=== PATIENT | male | born 1940 | race Caucasian/White ===

== ENCOUNTER → 2018-01-07 08:15 | Outpatient (CLI) | payer MEDICARE, SELFPAY ==
[2018-01-07 09:22] LABS: Absolute Lymphocyte Count 1.25 X10^3/ul (0.83-4.51); Absolute Neutrophil Count 3.4 X10^3/uL (2.0-7.7); Basophil# 0.02 X10^3/uL; Basophil% 0.4 % (0-1); Eosinophil# 0.13 X10^3/uL; Eosinophils% 2.5 % (0-5); Hematocrit 41.2 % (40-54); Hemoglobin 13.4 g/dl (13.0-16.5); Lymphocyte # 1.25 X10^3/ul (4.0); Lymphocyte % 23.9 % (19-41); Mean Corp Hgb Conc 32.5 g/gl (32-36); Mean Corpuscular Hgb 30.3 pg (27.0-32.0); Mean Corpuscular Volume 93.2 fL (80-94); Mean Platelet Vol. 10.7 fl (6.2-12.0); Monocyte# 0.45 X10^3/uL; Monocyte% 8.6 % (0-10); Neutrophil # 3.36 X10^3/uL (2.7-7.7); Neutrophil % 64.4 % (47-70); Platelet Count 174 K/mm3 (150-450); RBC Distribution Width CV 13.2 % (11.6-14.6); RBC Distribution Width SD 44.9 fl (35.1-43.9); Red Blood Count 4.42 M/mm3 (4.6-6.2); White Blood Count 5.2 K/mm3 (4.4-11.0)
[2018-01-07 09:35] LABS: POSITIVE COUNT NO; POSITIVE DIFFERENTIAL NO; POSITIVE MORPHOLOGY NO
[2018-01-07 09:51] LABS: Anion Gap 6 (5-15); BUN 16 mg/dL (7-18); BUN/Creat Ratio 16.2 RATIO (10-20); Calcium,Total 8.8 mg/dL (8.5-10.1); Chloride 104 mmol/L (98-107); Creatinine, Serum 0.99 mg/dL (0.70-1.30); EST Glomerular Filtration Rate 78 mL/min (>60); Est Glom Filt Rate - Afr Amer 95 mL/min (>60); Glucose 94 mg/dL (74-106); Potassium 3.8 mmol/L (3.5-5.1); Sodium Level 140 mmol/L (136-145); Thyroid Stim Hormone (TSH) 3.14 uIU/mL (0.358-3.74)
[2018-01-07 10:33] LABS: Vitamin D,25 Hydroxy 13.7 ng/mL (19.95-100.01)
== END ==
PROVIDERS: Family Provider Family Medicine; PCP Family Medicine; Visit Provider Family Medicine
DX: R53.83 Other fatigue (principal); E34.9 Endocrine disorder, unspecified
CPT/HCPCS: 36415; 80048; 82306; 84403; 84443; 85025

== ENCOUNTER 2018-02-01 15:44 | Emergency (ER) | payer MEDICARE, SELFPAY ==
[2018-02-01 15:44] VITALS: BP 146/86; PULSE 99; RESP 16; TEMP 36.7; O2SAT 99; BMI 28.6
--- NOTE | 2018-02-01 16:18 | EKG12_ITS ---
Test Reason : CP Blood Pressure : / mmHG Vent. Rate : 091 BPM Atrial Rate : 091 BPM P-R Int : 194 ms QRS Dur : 092 ms QT Int : 396 ms P-R-T Axes : 040 009 000 degrees QTc Int : 487 ms Normal sinus rhythm Normal ECG Confirmed by DAVIDE MULLINS, CHANELLE ([id number]), newspaper managing editor HENRIK DIAZ ([id number]) on 02/03/2018 3:23:45 PM Referred By: BRIDGET Confirmed By:CHANELLE AUGUSTINE MD
[2018-02-01 16:35] VITALS: O2SAT 99
[2018-02-01 16:39] LABS: Absolute Lymphocyte Count 1.21 X10^3/ul (0.83-4.51); Absolute Neutrophil Count 6.4 X10^3/uL (2.0-7.7); Basophil# 0.02 X10^3/uL; Basophil% 0.2 % (0-1); Eosinophils% 1.2 % (0-5); Hematocrit 41.2 % (40-54); Hemoglobin 13.9 g/dl (13.0-16.5); Lymphocyte # 1.21 X10^3/ul (4.0); Lymphocyte % 14.5 % (19-41); Mean Corp Hgb Conc 33.7 g/gl (32-36); Mean Corpuscular Hgb 30.9 pg (27.0-32.0); Mean Corpuscular Volume 91.6 fL (80-94); Mean Platelet Vol. 10.8 fl (6.2-12.0); Monocyte# 0.53 X10^3/uL; Monocyte% 6.4 % (0-10); Neutrophil # 6.44 X10^3/uL (2.7-7.7); Neutrophil % 77.5 % (47-70); Platelet Count 163 K/mm3 (150-450); RBC Distribution Width SD 43.3 fl (35.1-43.9); White Blood Count 8.3 K/mm3 (4.4-11.0)
[2018-02-01 16:40] LABS: POSITIVE COUNT NO; POSITIVE DIFFERENTIAL NO; POSITIVE MORPHOLOGY NO
--- NOTE | 2018-02-01 16:40 | RAD_ITS ---
STUDY: X-RAY CHEST REASON FOR EXAM: Male, 77 years old. PALPITATIONS, HYPERTENSION TECHNIQUE: Frontal and lateral views of the chest. COMPARISON: None. FINDINGS: Chronic appearing increased interstitial lung markings. There are multiple median sternotomy wires. There are multiple overlying cardiac monitoring leads. There is no demonstrated pleural abnormality. Normal heart size. Normal mediastinum and marcell. Normal visualized pulmonary arteries. There is atherosclerotic calcification of the aortic arch with tortuosity. There are diffuse degenerative changes of the visualized thoracic spine. There is degenerative osteoarthritis of the bilateral shoulders. There is no demonstrated abnormality of the visualized soft tissue structures of the upper abdomen. RAD/Chest PA and Lateral IMPRESSION: There are no acute findings. Electronically Signed: Geovani Castro MD at 16:55 EDT , Service support ,
[2018-02-01 16:57] LABS: Anion Gap 9 (5-15); BUN 24 mg/dL (7-18); BUN/Creat Ratio 22.6 RATIO (10-20); Calcium,Total 8.9 mg/dL (8.5-10.1); Chloride 108 mmol/L (98-107); Creatinine, Serum 1.06 mg/dL (0.70-1.30); EST Glomerular Filtration Rate 72 mL/min (>60); Est Glom Filt Rate - Afr Amer 87 mL/min (>60); Estimated Creatinine Clearance 65.07 ml/min; Glucose 125 mg/dL (74-106); Potassium 3.9 mmol/L (3.5-5.1); Sodium Level 141 mmol/L (136-145)
[2018-02-01] MEDS: Aspirin 81 MG TAB.CHEW 324 MG PO (17:11)
--- NOTE | 2018-02-01 17:17 | ED.VISSUMM ---
- ER Visit Summary Date of Service: 02/01/18 Chief Complaint: Palpitations History of Present Illness: The patient is a 77 M who presents with palpitations that began yesterday. Patient states he felt like his heart was racing last night. Patient states this is worse when he is at rest. Patient states that when he is up and active he does not feel any of the palpitations. Patient denies any pain. Patient denies any nausea or vomiting. Patient denies any shortness of breath. Patient denies any diaphoresis. Patient states he checked his pulse at home last night and was 91 when he was having the symptoms. Patient states his blood pressure was 142/82 at home last night. Physical Examination: Vital signs are stable. Patient is afebrile. Patient is in no acute distress. Heart was regular rate and rhythm. There is a grade 2/6 systolic murmur at the left upper sternal border. Lungs are clear and equal bilaterally. There is good respiratory effort noted. Oral mucosa is pink and moist. Abdomen is soft. Bowel sounds are normal. There is no tenderness or rebound noted. Cranial nerves II through XII are intact. There are no focal motor or sensory deficits noted. The remaining physical exam is within normal limits. Test Results: EKG showed normal sinus rhythm with a rate of 91. There are no acute ST or T-wave changes noted. This was unchanged compared to previous EKG dated 01/17/2003. Chest x-ray did not show any acute cardiopulmonary process. CBC was within normal limits. Metabolic profile was essentially within normal limits. Troponin was less than 0.02. Emergency Department Course and Treatment: Patient felt better on reevaluation. Currently, patient denies any palpitations. Treatment Plan: Patient was instructed to follow-up with Dr. Stanton in 3-5 days. Patient was instructed to keep daily log of his blood pressures and take this to his follow-up appointment. Patient understood and was agreeable with the plan. All questions were answered. Disposition: Discharged home Impression: Palpitations This note was generated with [employer] dictation software. It may contain incorrect words, spelling, and punctuation that were not noted in review of the chart prior to signing ED Disposition - Plan for ED Patient: Disposition: Home or Assisted Living Chief Complaint: Chest Other Diagnosis: Palpitations Instructions: ED Chest Pain [facility] Referrals: Rom Chaudhari MD [Primary Care Provider] -
[2018-02-01 17:59] VITALS: BP 149/85; PULSE 88; O2SAT 100
[2018-02-01 18:16] VITALS: BP 150/92; PULSE 91
== END 2018-02-01 18:17 | disposition home or self-care (01) ==
PROVIDERS: Emergency Provider Emergency Medicine; Family Provider Family Medicine; PCP Family Medicine
DX: R00.2 Palpitations (principal); R01.1 Cardiac murmur, unspecified; I10 Essential (primary) hypertension; E78.00 Pure hypercholesterolemia, unspecified; Z85.46 Personal history of malignant neoplasm of prostate; F32.9 Major depressive disorder, single episode, unspecified; Z95.1 Presence of aortocoronary bypass graft; Z79.82 Long term (current) use of aspirin; Z79.899 Other long term (current) drug therapy
CPT/HCPCS: 71046; 80048; 84484; 85025; 93005; 99285; A4216

== ENCOUNTER → 2018-04-02 09:29 | Outpatient (CLI) | payer MEDICARE, SELFPAY ==
[2018-04-03 09:04] LABS: Vitamin D,25 Hydroxy 42.3 ng/mL (29.95-100.01)
== END ==
PROVIDERS: Family Provider Family Medicine; PCP Family Medicine; Visit Provider Family Medicine
DX: E55.9 Vitamin D deficiency, unspecified (principal)
CPT/HCPCS: 36415; 82306

== ENCOUNTER → 2018-07-07 08:41 | Outpatient (CLI) | payer MEDICARE, SELFPAY ==
[2018-07-07 10:03] LABS: AST(SGOT) 16 U/L (15-37); Alanine Aminotransfer ALT/SGPT 29 U/L (16-61); Albumin, Serum 3.8 g/dL (3.2-5.0); Alkaline Phosphatase 66 U/L (45-117); Bilirubin, Direct 0.13 mg/dL (0.00-0.30); Cholesterol 107 mg/dL (200); Globulin 3.9 g/dL (2.2-4.2); High Density Lipoprotein 34 mg/dL; Protein, Total 7.7 g/dL (6.4-8.2); Triglycerides 107 mg/dL; Very Low Density Lipoprotein 21 mg/dL (5-40)
== END ==
PROVIDERS: Family Provider Family Medicine; PCP Family Medicine; Visit Provider Physician Assistant Medical
DX: E78.5 Hyperlipidemia, unspecified (principal); Z12.5 Encounter for screening for malignant neoplasm of prostate
CPT/HCPCS: 36415; 80061; 80076; 84153; G0103

== ENCOUNTER → 2019-02-11 08:40 | Outpatient (CLI) | payer MEDICARE, SELFPAY ==
[2018-07-10 12:44] VITALS: BMI 27.5
[2019-02-11 10:07] LABS: AST(SGOT) 21 U/L (15-37); Alanine Aminotransfer ALT/SGPT 32 U/L (16-61); Alkaline Phosphatase 64 U/L (45-117); Bilirubin, Direct 0.12 mg/dL (0.00-0.30); Cholesterol 125 mg/dL (200); Globulin 3.6 g/dL (2.2-4.2); High Density Lipoprotein 40 mg/dL; Protein, Total 7.6 g/dL (6.4-8.2); Triglycerides 112 mg/dL; Very Low Density Lipoprotein 22 mg/dL (5-40)
== END ==
PROVIDERS: Family Provider Family Medicine; PCP Family Medicine; Referring Provider Physician Assistant Medical; Visit Provider Physician Assistant Medical
DX: E78.5 Hyperlipidemia, unspecified (principal)
CPT/HCPCS: 36415; 80061; 80076

== ENCOUNTER → 2019-08-26 08:34 | Outpatient (CLI) | payer MEDICARE, SELFPAY ==
[2019-07-15 09:50] VITALS: BMI 26.2
[2019-08-26 09:46] LABS: AST(SGOT) 15 U/L (15-37); Alanine Aminotransfer ALT/SGPT 29 U/L (16-61); Albumin, Serum 3.9 g/dL (3.2-5.0); Alkaline Phosphatase 63 U/L (45-117); Bilirubin, Direct 0.13 mg/dL (0.00-0.30); Cholesterol 110 mg/dL (200); Globulin 3.4 g/dL (2.2-4.2); High Density Lipoprotein 38 mg/dL; PSA,Total- Diagnostic 0.74 ng/mL (0.0-4.0); Protein, Total 7.3 g/dL (6.4-8.2); Triglycerides 102 mg/dL; Very Low Density Lipoprotein 20 mg/dL (5-40)
== END ==
PROVIDERS: Family Provider Family Medicine; PCP Family Medicine; Referring Provider Internal Medicine Cardiovascular Disease; Visit Provider Internal Medicine Cardiovascular Disease
DX: E78.00 Pure hypercholesterolemia, unspecified (principal); Z85.46 Personal history of malignant neoplasm of prostate; E29.1 Testicular hypofunction
CPT/HCPCS: 36415; 80061; 80076; 84153; 84403

== ENCOUNTER → 2020-08-28 08:38 | Outpatient (CLI) | payer MEDICARE, SELFPAY ==
[2019-07-15 09:50] VITALS: BMI 26.2
[2020-07-20 10:29] VITALS: BMI 27.1
[2020-08-28 10:41] LABS: AST(SGOT) 14 U/L (15-37); Alanine Aminotransfer ALT/SGPT 30 U/L (16-61); Albumin, Serum 3.8 g/dL (3.2-5.0); Alkaline Phosphatase 69 U/L (45-117); Bilirubin, Direct 0.14 mg/dL (0.00-0.30); Cholesterol 120 mg/dL (200); Globulin 3.9 g/dL (2.2-4.2); High Density Lipoprotein 41 mg/dL; PSA,Total- Diagnostic 0.84 ng/mL (0.0-4.0); Protein, Total 7.7 g/dL (6.4-8.2); Triglycerides 90 mg/dL; Very Low Density Lipoprotein 18 mg/dL (5-40)
== END ==
PROVIDERS: Internal Medicine Cardiovascular Disease; PCP Family Medicine; Referring Provider Urology; Visit Provider Urology
DX: E78.00 Pure hypercholesterolemia, unspecified (principal); E78.5 Hyperlipidemia, unspecified; Z85.46 Personal history of malignant neoplasm of prostate
CPT/HCPCS: 36415; 80061; 80076; 84153

== ENCOUNTER → 2021-03-05 07:19 | Outpatient (CLI) | payer MEDICARE, SELFPAY ==
[2020-07-20 10:29] VITALS: BMI 27.1
[2021-03-05 07:45] LABS: Absolute Lymphocyte Count 1.53 X10^3/uL (0.83-4.51); Absolute Neutrophil Count 4.2 X10^3/uL (2.0-7.7); Basophil# 0.04 X10^3/uL; Basophil% 0.6 % (0-1); Eosinophil# 0.13 X10^3/uL; Hematocrit 43.4 % (40-54); Hemoglobin 14.5 g/dL (13.0-16.5); Lymphocyte # 1.53 X10^3/ul (0.83-4.51); Lymphocyte % 23.3 % (19-41); Mean Corp Hgb Conc 33.4 g/dL (32-36); Mean Corpuscular Hgb 31.1 pg (27.0-32.0); Mean Corpuscular Volume 93.1 fL (80-94); Mean Platelet Vol. 10.2 fl (6.2-12.0); Monocyte# 0.63 X10^3/uL; Monocyte% 9.6 % (0-10); NRBC Flagged by Analyzer 0 % (0-5); Platelet Count 212 K/mm3 (150-450); RBC Distribution Width CV 12.7 % (11.6-14.6); RBC Distribution Width SD 43.5 fl (35.1-43.9); Red Blood Count 4.66 M/mm3 (4.6-6.2); White Blood Count 6.6 K/mm3 (4.4-11.0)
[2021-03-05 08:16] LABS: ALB/GLOB Ratio 0.9 RATIO (0.9-2.4); AST(SGOT) 14 U/L (15-37); Alanine Aminotransfer ALT/SGPT 36 U/L (16-61); Albumin, Serum 3.6 g/dL (3.2-5.0); Alkaline Phosphatase 73 U/L (45-117); Anion Gap 5 (5-15); BUN 21 mg/dL (7-18); BUN/Creat Ratio 19.6 RATIO (10-20); Bilirubin, Direct 0.14 mg/dL (0.00-0.30); Calcium,Total 9.1 mg/dL (8.5-10.1); Chloride 105 mmol/L (98-107); Cholesterol 128 mg/dL (200); Creatinine, Serum 1.07 mg/dL (0.70-1.30); EST Glomerular Filtration Rate 71 mL/min (>60); Est Glom Filt Rate - Afr Amer 86 mL/min (>60); Glucose 106 mg/dL (74-106); High Density Lipoprotein 37 mg/dL; Potassium 4.2 mmol/L (3.5-5.1); Protein, Total 7.6 g/dL (6.4-8.2); Sodium Level 137 mmol/L (136-145); Thyroid Stim Hormone (TSH) 3.58 uIU/mL (0.358-3.74); Triglycerides 139 mg/dL; Very Low Density Lipoprotein 28 mg/dL (5-40)
[2021-03-05 08:28] LABS: Vitamin B12 315 pg/mL (211-911); Vitamin D,25 Hydroxy 20.5 ng/mL
== END ==
PROVIDERS: PCP Family Medicine; Referring Provider Physician Assistant Medical; Visit Provider Physician Assistant Medical
DX: R53.83 Other fatigue (principal); E34.9 Endocrine disorder, unspecified; E78.00 Pure hypercholesterolemia, unspecified; E78.5 Hyperlipidemia, unspecified
CPT/HCPCS: 36415; 80053; 80061; 82248; 82306; 82607; 84403; 84443; 85025

== ENCOUNTER → 2021-08-23 08:27 | Outpatient (CLI) | payer MEDICARE, SELFPAY ==
[2020-07-20 10:29] VITALS: BMI 27.1
[2021-08-23 09:49] LABS: AST(SGOT) 15 U/L (15-37); Alanine Aminotransfer ALT/SGPT 31 U/L (16-61); Albumin, Serum 3.6 g/dL (3.2-5.0); Alkaline Phosphatase 65 U/L (45-117); Bilirubin, Direct 0.14 mg/dL (0.00-0.30); Cholesterol 124 mg/dL (200); High Density Lipoprotein 34 mg/dL; PSA,Total - Annual Screen 1.37 ng/mL (0.00-4.00); Protein, Total 7.6 g/dL (6.4-8.2); Triglycerides 113 mg/dL; Very Low Density Lipoprotein 23 mg/dL (5-40)
== END ==
PROVIDERS: Physician Assistant Medical; PCP Family Medicine; Referring Provider Urology; Visit Provider Urology
DX: E78.00 Pure hypercholesterolemia, unspecified (principal); E78.5 Hyperlipidemia, unspecified; C61 Malignant neoplasm of prostate
CPT/HCPCS: 80061; 80076; 84153; G0103

== ENCOUNTER 2021-11-27 10:37 | Outpatient (CLI) | payer MEDICARE, SELFPAY ==
[2021-11-27 11:22] LABS: Hematocrit 42.6 % (40-54); Hemoglobin 13.9 g/dL (13.0-16.5); Mean Corp Hgb Conc 32.6 g/dL (32-36); Mean Corpuscular Hgb 30.7 pg (27.0-32.0); Mean Platelet Vol. 10.2 fl (6.2-12.0); Platelet Count 233 K/mm3 (150-450); Red Blood Count 4.53 M/mm3 (4.6-6.2)
[2021-11-27 12:05] LABS: Anion Gap 6 (5-15); BUN 25 mg/dL (7-18); BUN/Creat Ratio 20.5 RATIO (10-20); Calcium,Total 9.5 mg/dL (8.5-10.1); Chloride 107 mmol/L (98-107); Creatinine, Serum 1.22 mg/dL (0.70-1.30); EST Glomerular Filtration Rate 61 mL/min (>60); Est Glom Filt Rate - Afr Amer 74 mL/min (>60); Glucose 138 mg/dL (74-106); Magnesium 2.5 mg/dL (1.6-2.6); Potassium 3.8 mmol/L (3.5-5.1); Sodium Level 139 mmol/L (136-145); T4 Total, Thyroxin 8.8 ug/dL (4.5-12.1); Thyroid Stim Hormone (TSH) 2.34 uIU/mL (0.358-3.74)
== END 2021-11-27 23:59 | disposition short-term general hospital (02) ==
PROVIDERS: PCP Family Medicine; Referring Provider Internal Medicine Cardiovascular Disease; Visit Provider Internal Medicine Cardiovascular Disease
DX: E78.00 Pure hypercholesterolemia, unspecified (principal); I48.91 Unspecified atrial fibrillation; R06.02 Shortness of breath; R53.83 Other fatigue; I25.10 Atherosclerotic heart disease of native coronary artery without angina pectoris
CPT/HCPCS: 36415; 80048; 83735; 84436; 84443; 85027

== ENCOUNTER 2021-12-03 06:42 | Outpatient (CLI) | payer MEDICARE, SELFPAY ==
--- NOTE | 2021-12-03 06:44 | ECHOCS_ITS ---
Reason For Study: AFIB Procedure This was a 2D Doppler, Color Flow transthoracic echocardiogram. The study was technically difficult. Contrast injection was performed. Exam performed in department. Left Ventricle Normal LV size. Left ventricular systolic function is normal. The estimated ejection fraction is 60 %. Unable to assess diastolic dysfunction due to arrhythmia. No regional wall motion abnormalities noted. Right Ventricle Normal RV size. Normal systolic function. Atria The left atrium is mildly enlarged. Normal right atrium. Mitral Valve Normal mitral valve. Tricuspid Valve Normal tricuspid valve. Mild (1+) tricuspid valve insufficiency. Pulmonary artery systolic pressure is 30 mmHg. Aortic Valve Normal aortic valve. Pulmonic Valve Normal pulmonic valve. Great Vessels Mildly dilated aortic root. The pulmonary artery is normal size. Inferior vena cava collapse with respiration. Pericardium/Pleural No pericardial effusion. Medication Diluted definity 3.0ml given slow IV push to enhance endocardial definition. MMode/2D Measurements & Calculations LVIDd: 4.9 cm IVSd: 0.82 cm LVOT diam: 2.0 cm LVIDs: 3.8 cm LVPWd: 0.69 cm RVDd: 3.7 cm FS: 21.7 % LVOT area: 3.1 cm2 Ao root diam: 4.0 cm LAV(MOD-bp): 80.4 ml LVAd ap4: 27.3 cm2 LAV(MOD-bp) Indexed: 37.6 ml/m2 LVLd ap4: 7.5 cm LAV(MOD-sp2): 74.9 ml EDV(MOD-sp4): 84.4 ml LAV(MOD-sp4): 76.9 ml EDV(sp4-el): 85.1 ml LVAs ap4: 19.0 cm2 LVLs ap4: 6.3 cm ESV(MOD-sp4): 48.4 ml ESV(sp4-el): 48.8 ml EF(MOD-sp4): 42.7 % EF(sp4-el): 42.7 % LVAd ap2: 23.6 cm2 SV(MOD-sp4): 36.0 ml SV(MOD-sp2): 37.1 ml LVLd ap2: 6.9 cm EDV(MOD-sp2): 66.9 ml EDV(sp2-el): 69.0 ml LVAs ap2: 15.6 cm2 LVLs ap2: 6.8 cm ESV(MOD-sp2): 29.8 ml ESV(sp2-el): 30.0 ml EF(MOD-sp2): 55.5 % SV(sp4-el): 36.3 ml LA dimension(2D): 4.7 cm LA A4 area: 24.6 cm2 RA A4 area: 17.7 cm2 Doppler Measurements & Calculations Lat Peak E' Nicho: 9.3 cm/sec Med Peak E' Nicho: 4.5 cm/sec Ao V2 max: 151.4 cm/sec Ao max P.2 mmHg Ao V2 mean: 111.8 cm/sec Ao mean P.5 mmHg Ao V2 VTI: 26.8 cm LORI(I,D): 2.0 cm2 LORI(V,D): 1.8 cm2 LV V1 max: 90.8 cm/sec SV(LVOT): 53.2 ml PA V2 max: 86.5 cm/sec LV V1 max P.3 mmHg LV V1 mean P.0 mmHg LV V1 mean: 66.6 cm/sec LV V1 VTI: 17.3 cm TR max nicho: 254.1 cm/sec TR max P.8 mmHg ECHO/Echo Complete W/ Contrast Interpretation Summary Normal LV size. Left ventricular systolic function is normal. The estimated ejection fraction is 60 %. Unable to assess diastolic dysfunction due to arrhythmia. Pulmonary artery systolic pressure is 30 mmHg. Contrast injection was performed. Ordering Physician: Parag Stanton Referring Physician: RANDY ALVARENGA Performed By: Karon Yadav, AMELIA, RVT
--- NOTE | 2021-12-03 13:05 | STRESSREP ---
Stress Test Report Pharmacologic myocardial perfusion stress test. 81-year-old man with a history of new onset atrial fibrillation. Resting EKG demonstrates atrial fibrillation with a rate of 83 bpm and incomplete right bundle branch block. 0.4 mg of regadenoson was infused per usual protocol followed by rapid intravenous saline flush injection continuous EKG monitoring was performed. The patient maintained atrial fibrillation throughout the recording. The maximum heart rate was 101 bpm which was 72% of max impact at heart rate the maximum workload was 1 metabolic equivalent. The resting blood pressure is 144/84 with a final blood pressure of 118/80 mmHg. There were no ST or T wave changes noted to suggest abnormal flow reserve and no EKG changes noted with peak infusion to suggest ST changes suggestive of ischemia. Myocardial perfusion protocol. 12.0 mCi of technetium 99m sestamibi was injected at rest. 0.4 mg of regadenoson was infused per usual protocol. At peak infusion 34.6 mCi of technetium 99m sestamibi was injected stress images were obtained stress and rest images were reconstructed and compared in the short axis vertical long and horizontal long axis. Gated images were also obtained. Perfusion SPECT analysis: Review of the stress images demonstrate normal uptake of tracer noted in all areas of the myocardium. The resting images similarly demonstrate normal uptake of tracer noted in all areas of the myocardium. No areas of reversibility are noted to suggest ischemia and no previous infarct is noted. Gated SPECT analysis: The gated ejection fraction is noted to be 67%. Conclusion: Normal pharmacologic myocardial perfusion stress test. Preserved ejection fraction.
== END 2021-12-03 23:59 | disposition short-term general hospital (02) ==
LOC: CVS 06:44
PROVIDERS: PCP Family Medicine; Visit Provider Internal Medicine Cardiovascular Disease
DX: R06.02 Shortness of breath (principal); I48.91 Unspecified atrial fibrillation; R53.83 Other fatigue; I25.2 Old myocardial infarction; I25.10 Atherosclerotic heart disease of native coronary artery without angina pectoris; I10 Essential (primary) hypertension; E78.00 Pure hypercholesterolemia, unspecified
CPT/HCPCS: 78452; 93017; 93225; 93226; 93306; A9500; Q9957; A4216; C8929; J2785

== ENCOUNTER 2021-12-24 16:27 | Outpatient (CLI) | payer MEDICARE, SELFPAY ==
--- NOTE | 2021-12-24 16:30 | RAD_ITS ---
STUDY: X-RAY CHEST REASON FOR EXAM: Male, 81 years old. For evidence of breath. Preop, cardioversion for atrial fibrillation. TECHNIQUE: PA and lateral views of the chest. COMPARISON: None. FINDINGS: The lungs are clear and expanded. There is no demonstrated pleural abnormality. Sternal cerclage wires are present from a prior sternotomy. The heart is normal in size. Normal mediastinum and marcell. Normal visualized pulmonary arteries. There is atherosclerotic calcification of the aortic arch with tortuosity. There are diffuse degenerative changes of the visualized thoracic spine. There is degenerative osteoarthritis of the bilateral shoulders. There is no demonstrated abnormality of the visualized soft tissue structures of the upper abdomen. RAD/Chest PA and Lateral IMPRESSION: 1. Evidence of median sternotomy. There is no acute cardiopulmonary disease. 2. Degenerative changes of the shoulders and thoracic spine. Electronically Signed: Daniele Herzog DO at 22:07 EST ,
[2021-12-24 17:41] LABS: Anion Gap 4 (5-15); BUN 22 mg/dL (7-18); BUN/Creat Ratio 17.5 RATIO (10-20); Calcium,Total 9.5 mg/dL (8.5-10.1); Chloride 108 mmol/L (98-107); Creatinine, Serum 1.26 mg/dL (0.70-1.30); EST Glomerular Filtration Rate 59 mL/min (>60); Est Glom Filt Rate - Afr Amer 71 mL/min (>60); Glucose 120 mg/dL (74-106); Potassium 4.1 mmol/L (3.5-5.1); Sodium Level 139 mmol/L (136-145)
== END 2021-12-24 23:59 | disposition home or self-care (01) ==
PROVIDERS: PCP Family Medicine; Referring Provider Internal Medicine Cardiovascular Disease; Visit Provider Internal Medicine Cardiovascular Disease
DX: R53.83 Other fatigue (principal); I48.19 Other persistent atrial fibrillation; R06.02 Shortness of breath; I45.10 Unspecified right bundle-branch block; I25.2 Old myocardial infarction; I25.10 Atherosclerotic heart disease of native coronary artery without angina pectoris; Z95.1 Presence of aortocoronary bypass graft; I10 Essential (primary) hypertension; E78.00 Pure hypercholesterolemia, unspecified
CPT/HCPCS: 36415; 71046; 80048

== ENCOUNTER 2022-01-14 10:52 | Day surgery (SDC) | payer MEDICARE, SELFPAY ==
[2022-01-11 08:11] VITALS: BMI 28.3
--- NOTE | 2022-01-14 12:01 | PCM.OP.BLANK ---
Problems Associated Problem List Diagnoses (1) Persistent atrial fibrillation: Operative Report Date of Procedure: 01/14/22 DC cardioversion. 81-year-old man with a history of new onset atrial fibrillation. The patient has been anticoagulated. Regimen for at least 3 weeks. Informed consent was obtained. The patient was seen by Dr. Oliva of the critical care division. Anterior-posterior pads were applied. The patient was then administered 40 mg of intravenous propofol. 200 J of synchronized DC cardioversion energy were applied with prompt reversal to sinus rhythm. Patient tolerated the procedure well. Conclusion: Successful DC cardioversion from atrial fibrillation to sinus rhythm. Continue protocol per office.
--- NOTE | 2022-01-14 13:35 | PRO.PCM_ITS ---
Assessment & Plan Assessment/Plan (1) Persistent atrial fibrillation: (2) Short of breath on exertion: (3) H/O coronary artery bypass surgery: Procedure Report Date of Procedure: 01/14/22 CONSCIOUS SEDATION REPORT BRIEF HISTORY OF PRESENT ILLNESS: The patient is an 81-year-old male who presented to [facility] for an elective outpatient cardioversion due to underlying atrial fibrillation. The patient reports no PO intake since midnight, but is currently therapeutic on anticoagulation. The patient does not have a history of JERRY. The patient reports no history of smoking or COPD. The patient denies any recent constitutional symptoms such as fevers, chills, nausea or vomiting. The patient denies previous applicable anesthetic complications. Patient's last known ejection fraction was within normal limits. PHYSICAL EXAMINATION: VITAL SIGNS: Reviewed and were acceptable. GENERAL: The patient is a male, in no apparent distress, speaking in full sentences. HEENT: Normocephalic, atraumatic. Mucous membranes are moist and pink. Good mouth opening noted. Trachea is midline. Good neck mobility. MP II CHEST: S1, S2 irregularly irregular. No murmurs, rubs or gallops were noted. LUNGS: Clear to auscultation bilaterally without appreciable wheezes, rales or rhonchi. ABDOMEN: Soft, nontender, nondistended. Positive bowel sounds. EXTREMITIES: There is no clubbing, cyanosis or edema. ASA Class: II DESCRIPTION OF PROCEDURE: After confirmation of informed consent, the patient's anesthesia plan was reviewed in detail. Propofol was chosen. Risks and benefits were reviewed and the patient agreed to proceed. At 11:57 AM, the patient was given 40 mg of propofol. The patient achieved an appropriate level of sedation and received 1 attempt synchronized cardioversion, at [address] Stanton at the bedside. This was successful in achieving normal sinus rhythm. The patient was monitored until 12:11 PM, at which time the patient reached their baseline mental status and function. The patient tolerated the procedure well. COMPLICATIONS: None ESTIMATED BLOOD LOSS: None RECOMMENDATIONS: Okay to recover in usual fashion. Procedures Pulmonary 9xxxx: [id number] Con Sedation
== END 2022-01-14 23:59 | disposition home or self-care (01) ==
LOC: CLSP 10:57
PROVIDERS: PCP Family Medicine; Referring Provider Internal Medicine Cardiovascular Disease; Visit Provider Internal Medicine Cardiovascular Disease
DX: I48.19 Other persistent atrial fibrillation (principal); Z95.1 Presence of aortocoronary bypass graft; I10 Essential (primary) hypertension; E78.00 Pure hypercholesterolemia, unspecified; I25.10 Atherosclerotic heart disease of native coronary artery without angina pectoris; I25.2 Old myocardial infarction; Z85.46 Personal history of malignant neoplasm of prostate; Z79.82 Long term (current) use of aspirin; Z79.899 Other long term (current) drug therapy; Z79.01 Long term (current) use of anticoagulants; Z87.891 Personal history of nicotine dependence
CPT/HCPCS: 92960; 93005; J7040

== ENCOUNTER → 2022-08-20 | Outpatient (CLI) | payer MEDICARE, SELFPAY ==
[2022-08-20 11:18] LABS: AST(SGOT) 16 U/L (15-37); Alanine Aminotransfer ALT/SGPT 44 U/L (16-61); Albumin, Serum 3.5 g/dL (3.2-5.0); Alkaline Phosphatase 64 U/L (45-117); Bilirubin, Direct 0.14 mg/dL (0.00-0.30); Cholesterol 133 mg/dL (200); Globulin 4.2 g/dL (2.2-4.2); High Density Lipoprotein 40 mg/dL; Protein, Total 7.7 g/dL (6.4-8.2); Triglycerides 106 mg/dL; Very Low Density Lipoprotein 21 mg/dL (5-40)
== END | disposition home or self-care (01) ==
LOC: LAB 09:36
PROVIDERS: PCP Family Medicine; Visit Provider Internal Medicine Cardiovascular Disease
DX: E78.5 Hyperlipidemia, unspecified (principal)
CPT/HCPCS: 36415; 80061; 80076

== ENCOUNTER → 2022-09-10 | Outpatient (CLI) | payer MEDICARE, SELFPAY ==
[2022-09-10 12:15] LABS: PSA,Total- Diagnostic 2.18 ng/mL (0.0-4.0); Thyroid Stim Hormone (TSH) 3.47 uIU/mL (0.358-3.74)
== END | disposition home or self-care (01) ==
LOC: LAB 10:49
PROVIDERS: Internal Medicine Cardiovascular Disease; PCP Family Medicine; Referring Provider Urology; Visit Provider Urology
DX: C61 Malignant neoplasm of prostate (principal); E78.00 Pure hypercholesterolemia, unspecified
CPT/HCPCS: 36415; 84153; 84443

== ENCOUNTER → 2022-11-05 | Outpatient (CLI) | payer MEDICARE, SELFPAY ==
--- NOTE | 2022-11-05 15:39 | RAD_ITS ---
EXAM: XR CHEST, 2 VIEWS CLINICAL INDICATION: WHEEZING TECHNIQUE: Frontal and lateral views of the chest. This report was created using [employer] report generation technology. COMPARISON: 12/24/2021. FINDINGS: LUNGS AND PLEURAL SPACES: Unremarkable. No consolidation or edema. No pneumothorax. No effusion. HEART: Unremarkable. Cardiac silhouette not enlarged. MEDIASTINUM: Central airways and mediastinal contour are unremarkable. BONES/JOINTS: Sternal wires. SOFT TISSUES: Unremarkable. RAD/Chest PA and Lateral IMPRESSION: No acute cardiopulmonary abnormality.. Electronically Signed: Tarik Asencio MD at 3:32 EST ,
== END | disposition home or self-care (01) ==
LOC: MTRAD 15:36
PROVIDERS: PCP Family Medicine; Referring Provider Family Medicine; Visit Provider Family Medicine
DX: R06.2 Wheezing (principal)
CPT/HCPCS: 71046

== ENCOUNTER 2022-11-10 10:37 | Emergency (ER) | payer MEDICARE, SELFPAY ==
[2022-11-10 10:37] VITALS: BP 129/81; PULSE 83; RESP 18; TEMP 36.3; O2SAT 99; BMI 27.9
--- NOTE | 2022-11-10 10:56 | EDS_ITS ---
HPI History of Present Illness Chief Complaint: Cough Informant: patient Onset/Context/Timing Onset: Days (8-day) Context: Gradual Onset Narrative Narrative: Patient presents with cough and wheezing over the past 8 days. He has not noted a fever. He called his primary care physician and was seen this week. He was given a course of prednisone as well as what he believes was a water pill. He took his last dose of steroid this morning but has not noticed any significant improvement in his cough. [facility] Medical History Atherosclerotic heart disease of [place] coronary artery without angina pectoris Essential (primary) hypertension Gynecomastia HLD (hyperlipidemia) Multiple premature ventricular complexes New onset atrial fibrillation (11/27/21) Old inferior wall myocardial infarction Paroxysmal atrial fibrillation Persistent atrial fibrillation Postoperative atrial fibrillation Prostate cancer Right bundle branch block (RBBB) Home Medications aspirin 81 mg tablet,delayed release (Adult Low Dose Aspirin) 81 mg PO QDAY 10/22/17 [History Last Taken Unknown] folic acid 0.8 mg capsule 800 mcg PO QDAY 10/22/17 [History Last Taken Unknown] nitroglycerin 0.4 mg sublingual tablet 0.4 mg sublingual Q5-15M PRN pain #25 tabs 08/24/21 [Rx Last Taken Unknown] apixaban 5 mg tablet (Eliquis) 5 mg PO BID #180 tabs 12/24/21 [Rx Last Taken 01/14/22] losartan 25 mg tablet 25 mg PO DAILY #90 tabs 12/24/21 [Rx Last Taken 01/14/22] amiodarone 200 mg tablet 200 mg PO DAILY #90 tabs 02/04/22 [Rx Last Taken Unknown] metoprolol tartrate 25 mg tablet 12.5 mg PO BID #180 tabs 04/23/22 [Rx Last Taken Unknown] amlodipine 10 mg tablet (Norvasc) 10 mg PO QDAY #90 tabs 07/15/22 [Rx Last Taken Unknown] atorvastatin 10 mg tablet (Lipitor) 10 mg PO QHS #90 tabs 08/12/22 [Rx Last Taken Unknown] indapamide 1.25 mg tablet 1.25 mg PO DAILY 11/10/22 [History Last Taken Unknown] prednisone 20 mg tablet 40 mg PO DAILY 11/10/22 [History Last Taken Unknown] prednisone 20 mg tablet 40 mg PO DAILY #8 tabs 11/10/22 [Rx Last Taken Unknown] Allergy/AdvReac Type Severity Reaction Status Date / Time No Known Allergies Allergy Verified 11/10/22 10:41 Family History Father Cancer Prostate Cancer Surgical History H/O coronary artery bypass surgery (10/22/12) History of cardioversion (01/14/22) History of coronary artery stent placement (09/19/98) Social History Smoking Status: Never smoker second hand exposure: No alcohol intake: current alcohol intake frequency: a few times a week Alcohol type: beer substance use type: does not use caffeine: Yes Type: coffee Number of servings: 2 eating out: 1-3 times/week during the past year weight has: remained stable what type of physical activity do you participate in: walking and weight training frequency: 5-6 times per week duration: 45-60 minutes/day seatbelt use: always do you feel safe at home: Yes ROS ROS ED Constitutional Constitutional ED: Denies chills or fever(s) Eyes Eyes: Denies change in vision or discharge from eye(s) ENT ENT ED: Denies discharge from eye(s), rhinorrhea or sore throat Cardiovascular Cardiovascular: Denies chest pain or palpitations Respiratory/Chest Respiratory/Chest: Reports cough and dyspnea Gastrointestinal Gastrointestinal: Denies abdominal pain, nausea or vomiting Genitourinary Genitourinary ED: Denies dysuria Musculoskeletal Musculoskeletal: Denies back pain or extremity pain Integumentary Denies Abrasions or rash Neurologic Neurologic: Denies headache(s) or weakness Psychiatric Psychiatric: Denies anxiety or depression Allergic/Immunologic Allergic/Immunologic ED: Denies lip swelling or urticaria EXAM Physical Exam Const Vital Signs: 11/10/22 10:37 11/10/22 11:05 11/10/22 12:11 Temperature 97.4 F L Temperature Source Temporal Pulse Rate 83 70 81 Respiratory Rate 18 18 16 Respiratory Pattern Normal Blood Pressure 129/81 H 143/65 H Blood Pressure Mean 97 91 Pulse Ox 99 99 Oxygen Delivery Method Room Air Room Air Positive well nourished and well developed General Appearance ED: well developed HEENT Reports normocephalic and head/scalp atraumatic Eyes PERRL and EOMs intact bilaterally Neck supple Chest Wall inspection of chest normal and palpation of chest normal Resp normal respiratory effort Resp Narrative: Mild expiratory wheezes throughout. Cardio regular rate and regular rhythm GI normal to inspection, nondistended, normoactive bowel sounds Palpation: soft Extremity normal to inspection Neuro oriented x3 and no sensory deficits noted Sensorium / Orientation: alert Motor Exam: strength 5/5 throughout Psych mental status grossly normal Skin no rashes or lesions noted MDM MDM MDM Narrative Medical decision making narrative: Patient given aerosol treatments. Robitussin given for cough. Chest x-ray obtained. Radiography Chest X-Ray - ED: 2 View, Read by ED Physician, Chronic Changes and No Infiltrates Diagnostic Testing: Clinical Impression(s) from Imaging Studies Chest X-Ray 11/10/22 11:35 IMPRESSION: No active disease. Electronically Signed: Gsu Dumont MD at 11:50 EST , Treatment and Re-Evaluation Narrative: Chest x-ray per my interpretation feels no focal infiltrate. Radiology interpretation is reviewed and agrees. On repeat evaluation lung sounds are significantly improved. Patient reports cough seems to be improved as well. I will give him an albuterol inhaler and another short burst of steroids. He will get Robitussin. I do believe his symptoms are all viral in nature and he was advised that the typical viral URI symptoms will last 2 to 3 weeks. He has follow-up scheduled this week with his doctor. Return instructions are given. Discharge Plan Triage Chief Complaint: Cough ED Provider: Brigid Araujo Dx/Rx/DC Orders Clinical Impression: Bronchitis, Viral URI with cough Instructions: ED URI, Viral, No Abx (Adult) Prescriptions: New prednisone 20 mg tablet 40 mg PO DAILY Qty: 8 0RF No Action nitroglycerin 0.4 mg tablet, sublingual 0.4 mg SUBLINGUAL Q5-15M PRN (Reason: pain) Qty: 25 3RF Eliquis 5 mg tablet 5 mg PO BID Qty: 180 3RF amiodarone 200 mg tablet 200 mg PO DAILY Qty: 90 3RF prednisone 20 mg tablet 40 mg PO DAILY Label Comments: take 2 tablets by mouth once daily for 3 days then 1 once daily indapamide 1.25 mg tablet 1.25 mg PO DAILY Label Comments: take 1 tablet by mouth once daily (TO PREVENT SWELLING ON STEROIDS) aspirin [Adult Low Dose Aspirin] 81 mg tablet,delayed release (DR/EC) 81 mg PO QDAY folic acid 0.8 mg capsule 800 mcg PO QDAY losartan 25 mg tablet 25 mg PO DAILY Qty: 90 3RF metoprolol tartrate 25 mg tablet 12.5 mg PO BID Qty: 180 3RF amlodipine [Norvasc] 10 mg tablet 10 mg PO QDAY Qty: 90 3RF atorvastatin [Lipitor] 10 mg tablet 10 mg PO QHS Qty: 90 3RF Primary Care Provider: Janell Walters Referrals: Janell Walters, DO [Primary Care Provider] - Keep Nohemy appointment Activity Restrictions/Additional Instructions: You can get Robitussin (guaifenesin) [id number] to help with cough. You can use your inhaler 2 to 3 puffs every 4 hours as needed for shortness of breath and wheezing. Disposition Disposition: Home, Self Care
[2022-11-10] MEDS: Ipratropium/Albuterol Sulfate 3 ML AMPUL.NEB INHALATION (11:02)
[2022-11-10 11:05] VITALS: PULSE 70; RESP 18
[2022-11-10] MEDS: Albuterol 2.5 MG/3 ML VIAL.NEB. INHALATION ×2 (11:05)
[2022-11-10] MEDS: guaiFENesin 10 ML UDC (200MG/10ML) PO (11:31)
--- NOTE | 2022-11-10 11:35 | RAD_ITS ---
STUDY: X-RAY CHEST REASON FOR EXAM: Male, 81 years old. cough TECHNIQUE: PA and lateral views of the chest. COMPARISON: 11/05/2022 FINDINGS: Status post median sternotomy. The lungs are clear and expanded. There is no demonstrated pleural abnormality. Normal size heart. Normal mediastinum and marcell. Normal visualized pulmonary arteries. Normal visualized aortic arch and descending thoracic aorta. Normal visualized thoracic spine. Normal visualized ribs, clavicles, and shoulders. There is no demonstrated abnormality of the visualized soft tissue structures of the upper abdomen. RAD/Chest PA and Lateral IMPRESSION: No active disease. Electronically Signed: Gus Dumont MD at 11:50 EST ,
[2022-11-10 12:11] VITALS: BP 143/65; PULSE 81; RESP 16; O2SAT 99
[2022-11-10 12:45] VITALS: BP 149/75; PULSE 84; RESP 16; O2SAT 96
[2022-11-10] MEDS: Albuterol Sulfate 8 gm Inhaler (60 puffs) 2 PUFF INHALATION (12:45)
== END 2022-11-10 12:46 | disposition home or self-care (01) ==
PROVIDERS: Emergency Provider Emergency Medicine; PCP Family Medicine; Visit Provider Emergency Medicine
DX: J40 Bronchitis, not specified as acute or chronic (principal); I48.0 Paroxysmal atrial fibrillation; J06.9 Acute upper respiratory infection, unspecified; E78.5 Hyperlipidemia, unspecified; I25.10 Atherosclerotic heart disease of native coronary artery without angina pectoris; I10 Essential (primary) hypertension; I25.2 Old myocardial infarction; Z95.1 Presence of aortocoronary bypass graft; Z95.5 Presence of coronary angioplasty implant and graft; Z79.899 Other long term (current) drug therapy; Z79.01 Long term (current) use of anticoagulants; Z79.82 Long term (current) use of aspirin
CPT/HCPCS: 71046; 94640; 99282

== ENCOUNTER → 2023-01-29 | Outpatient (CLI) | payer MEDICARE, SELFPAY ==
[2023-01-29 09:14] LABS: AST(SGOT) 13 U/L (15-37); Alanine Aminotransfer ALT/SGPT 27 U/L (16-61); Albumin, Serum 3.8 g/dL (3.2-5.0); Alkaline Phosphatase 65 U/L (45-117); Bilirubin, Direct 0.15 mg/dL (0.00-0.30); Cholesterol 127 mg/dL (200); Globulin 3.8 g/dL (2.2-4.2); High Density Lipoprotein 37 mg/dL; Protein, Total 7.6 g/dL (6.4-8.2); Triglycerides 129 mg/dL; Very Low Density Lipoprotein 26 mg/dL (5-40)
== END | disposition home or self-care (01) ==
LOC: LAB 08:31
PROVIDERS: PCP Family Medicine; Referring Provider Internal Medicine Cardiovascular Disease; Visit Provider Internal Medicine Cardiovascular Disease
DX: E78.00 Pure hypercholesterolemia, unspecified (principal)
CPT/HCPCS: 36415; 80061; 80076

== ENCOUNTER → 2023-03-11 | Outpatient (CLI) | payer MEDICARE, SELFPAY ==
[2023-03-11 10:18] LABS: PSA,Total- Diagnostic 2.21 ng/mL (0.0-4.0)
== END | disposition home or self-care (01) ==
LOC: LAB 09:00
PROVIDERS: PCP Family Medicine; Referring Provider Urology; Visit Provider Urology
DX: R97.20 Elevated prostate specific antigen [PSA] (principal)
CPT/HCPCS: 36415; 84153; 84403

== ENCOUNTER → 2023-08-04 | Outpatient (CLI) | payer MEDICARE, SELFPAY ==
[2023-08-04 10:28] LABS: AST(SGOT) 15 U/L (15-37); Alanine Aminotransfer ALT/SGPT 31 U/L (16-61); Albumin, Serum 3.5 g/dL (3.2-5.0); Alkaline Phosphatase 62 U/L (45-117); Bilirubin, Direct 0.12 mg/dL (0.00-0.30); Cholesterol 111 mg/dL (200); Globulin 3.6 g/dL (2.2-4.2); High Density Lipoprotein 35 mg/dL; PSA,Total- Diagnostic 3.27 ng/mL (0.0-4.0); Protein, Total 7.1 g/dL (6.4-8.2); Triglycerides 123 mg/dL; Very Low Density Lipoprotein 25 mg/dL (5-40)
== END | disposition home or self-care (01) ==
LOC: LAB 08:29
PROVIDERS: PCP Family Medicine; Referring Provider Internal Medicine Cardiovascular Disease; Visit Provider Internal Medicine Cardiovascular Disease
DX: C61 Malignant neoplasm of prostate (principal); E78.00 Pure hypercholesterolemia, unspecified
CPT/HCPCS: 36415; 80061; 80076; 84153

== ENCOUNTER → 2023-08-06 | Outpatient (CLI) | payer MEDICARE, SELFPAY ==
[2023-08-06 12:09] LABS: Absolute Lymphocyte Count 1.31 X10^3/uL (0.83-4.51); Absolute Neutrophil Count 4.8 X10^3/uL (2.0-7.7); Basophil# 0.04 X10^3/uL; Basophil% 0.6 % (0-1); Eosinophil# 0.23 X10^3/uL; Eosinophils% 3.2 % (0-5); Hematocrit 40.8 % (40-54); Hemoglobin 13.4 g/dL (13.0-16.5); Lymphocyte # 1.31 X10^3/ul (0.83-4.51); Lymphocyte % 18.4 % (19-41); Mean Corp Hgb Conc 32.8 g/dL (32-36); Mean Corpuscular Hgb 31.4 pg (27.0-32.0); Mean Corpuscular Volume 95.6 fL (80-94); Mean Platelet Vol. 10.2 fl (6.2-12.0); Monocyte# 0.74 X10^3/uL; Monocyte% 10.4 % (0-10); NRBC Flagged by Analyzer 0 % (0-5); Neutrophil # 4.76 X10^3/uL (2.7-7.7); Neutrophil % 66.8 % (47-70); Platelet Count 192 K/mm3 (150-450); RBC Distribution Width CV 12.6 % (11.6-14.6); RBC Distribution Width SD 44.1 fl (35.1-43.9); Red Blood Count 4.27 M/mm3 (4.6-6.2); White Blood Count 7.1 K/mm3 (4.4-11.0)
[2023-08-06 13:21] LABS: Anion Gap 5 (5-15); BUN 24 mg/dL (7-18); BUN/Creat Ratio 20.9 RATIO (10-20); Calcium,Total 8.9 mg/dL (8.5-10.1); Chloride 110 mmol/L (98-107); Creatinine, Serum 1.15 mg/dL (0.70-1.30); EST Glomerular Filtration Rate 65 mL/min (>60); Est Glom Filt Rate - Afr Amer 78 mL/min (>60); Glucose 88 mg/dL (74-106); Potassium 4.1 mmol/L (3.5-5.1); Sodium Level 140 mmol/L (136-145); Thyroid Stim Hormone (TSH) 3.55 uIU/mL (0.358-3.74)
[2023-08-06 13:23] LABS: Vitamin D,25 Hydroxy 23.7 ng/mL
== END | disposition home or self-care (01) ==
LOC: LAB 11:36
PROVIDERS: PCP Family Medicine; Visit Provider Nurse Practitioner Gerontology
DX: R53.83 Other fatigue (principal); E55.9 Vitamin D deficiency, unspecified
CPT/HCPCS: 36415; 80048; 82306; 84443; 85025

== ENCOUNTER → 2024-03-04 | Outpatient (CLI) | payer MEDICARE, SELFPAY ==
[2024-03-04 10:43] LABS: AST(SGOT) 19 U/L (15-37); Alanine Aminotransfer ALT/SGPT 23 U/L (16-61); Albumin, Serum 3.6 g/dL (3.2-5.0); Alkaline Phosphatase 68 U/L (45-117); Bilirubin, Direct 0.16 mg/dL (0.00-0.30); Cholesterol 102 mg/dL (200); High Density Lipoprotein 32 mg/dL; PSA,Total- Diagnostic 6.24 ng/mL (0.0-4.0); Protein, Total 7.6 g/dL (6.4-8.2); Triglycerides 105 mg/dL; Very Low Density Lipoprotein 21 mg/dL (5-40)
== END | disposition home or self-care (01) ==
PROVIDERS: PCP Family Medicine; Referring Provider Family Medicine; Visit Provider Nurse Practitioner Family
DX: C61 Malignant neoplasm of prostate (principal); E78.00 Pure hypercholesterolemia, unspecified
CPT/HCPCS: 36415; 80061; 80076; 84153

== ENCOUNTER → 2024-03-23 | Outpatient (CLI) | payer MEDICARE, SELFPAY ==
--- NOTE | 2024-03-23 10:30 | PET_ITS ---
EXAMINATION: 18 F Pylarify PET-CT HISTORY: An 83-year-old male with history of prostate carcinoma presenting for apparent initial staging examination. COMPARISON EXAMINATION: None available INDEX LESION SIZE PROMISE SCORE SUV INTERPRETATION Prostate gland, right seminal vesical 17.8-mm 3 26.99 Fulfills quantitative criteria for viable neoplasm Right occipital calvarium 1 3.6 Quantitative criteria for viable neoplasm are not fulfilled TECHNIQUE: Following the intravenous administration of 9.2 mCi of 18 F Pylarify via the left wrist, image acquisitions of the head, neck, chest, abdomen and pelvis to the level of the mid thigh at 73 minutes post-tracer distribution reveal: The examination was interpreted using the EANM (Pedro et al., Journal of Nuclear Medicine Molecular Imaging 44:1622, 2017) and PROMISE (Tyson et al., Journal of Nuclear Medicine 59:469, 2018) interpretive criteria. HEIGHT: 72 inches. WEIGHT: 208 lbs. PSMA expression score PROMISE criteria: High (3): SUV ? parotid-salivary gland, intermediate (2): SUV ? liver, low (1): > blood pool, < liver, (0): < blood pool. SUV reference values: Parotid glands 25.32. Normal liver parenchyma 10.5. Blood pool 2.6. FINDINGS: Head/Neck: There is increased uptake noted in the posterior calvarium in the midline and to the right of the midline generating a calculated maximal standard uptake value of 3.6. The PROMISE score is 1. CHEST: There is no evidence of abnormal increased radiotracer within the context of the bilateral hemithorax pulmonary parenchyma, mediastinal structures and right-left thoracic perihilum. Pertinent chest CT findings are as follows. Bilateral axillary and scattered mediastinal soft tissue densities are non-tracer avid. There are no parenchymal densities-nodules noted in the right and left hemithorax demonstrating quantitatively significant increased radiotracer uptake. There is atherosclerotic calcification defined in the thoracic aorta without evidence of dilatation-aneurysm formation. Coronary arterial calcification is observed. Abdomen/Pelvis: Facilitated radiopharmaceutical concentration is defined in the lower pelvis associated with the base of the prostate gland to the left and right of the midline and right seminal vesical. The calculated maximal standard uptake value is 26.99. The maximal axial diameter of the metabolic, morphologic abnormality is 17.8-mm. The PROMISE score is 3. Physiologic radiopharmaceutical concentration is otherwise noted in the hepatic and splenic parenchyma, visualized intestinal tract, right and left kidneys, urinary bladder. Review of CT of the abdomen and pelvis reveals the following. There is atherosclerotic calcification defined in the abdominal aorta without evidence of dilatation-aneurysm formation. Abdominal-pelvic arterial calcification is observed. Exophytic cyst formation is noted in the right renal unit. Colonic diverticulosis is noted without evidence of diverticulitis. Right and left inguinal soft tissue densities with fatty hilus formation are ametabolic. SKELETAL: Degenerative changes are noted in the cervical, thoracic and lumbar spine without evidence of increased radiopharmaceutical concentration. PET/PET/CT Tumor Base -Thigh Subs IMPRESSION: 1. ABNORMAL EXAMINATION INDICATIVE OF MALIGNANT VIABLE NEOPLASM. 2. Increased tracer uptake noted in the region of the prostate gland, right seminal vesical fulfills quantitative criteria for viable neoplasm. 3. No other quantitatively significant hypermetabolic abnormalities are noted. 4. Enhanced tracer uptake noted in the occipital calvarium does not fulfill quantitative criteria for malignant transformation. Electronic Signature Gus Avendaño DO Accurate Quantification of SUVs and standardized PROMISE scores for this report are calculated using the exclusive [employer], ([place] Patent No. [id number] [phone] [id number] [phone] [place] patent [phone] ). Standardization and correction of the FDG SUV metric exclusively available with [employer] intellectual property, allow for vendor non-specific objective quantitative sequential FDG PET-CT comparison and otherwise unobtainable optimization of the sensitivity and specificity of the examination. [email or web address] Electronically Signed: Gus Avendaño DO at 8:10 EDT ,
== END | disposition home or self-care (01) ==
LOC: ONC 10:04
PROVIDERS: PCP Family Medicine; Referring Provider Urology; Visit Provider Urology
DX: C61 Malignant neoplasm of prostate (principal); R97.21 Rising PSA following treatment for malignant neoplasm of prostate
CPT/HCPCS: 78815; A9595

== ENCOUNTER → 2024-05-27 | Outpatient (CLI) | payer MEDICARE, SELFPAY ==
[2024-05-27 17:32] LABS: Absolute Lymphocyte Count 1.22 X10^3/uL (0.83-4.51); Absolute Neutrophil Count 6.5 X10^3/uL (2.0-7.7); Basophil# 0.04 X10^3/uL; Basophil% 0.5 % (0-1); Eosinophil# 0.28 X10^3/uL; Eosinophils% 3.2 % (0-5); Hematocrit 37.6 % (40-54); Hemoglobin 12.8 g/dL (13.0-16.5); Lymphocyte # 1.22 X10^3/ul (0.83-4.51); Lymphocyte % 13.9 % (19-41); Mean Platelet Vol. 11.4 fl (6.2-12.0); Monocyte# 0.68 X10^3/uL; Monocyte% 7.8 % (0-10); NRBC Flagged by Analyzer 0 % (0-5); Platelet Count 191 K/mm3 (150-450); RBC Distribution Width CV 12.4 % (11.6-14.6); RBC Distribution Width SD 40.8 fl (35.1-43.9); Red Blood Count 4.13 M/mm3 (4.6-6.2); White Blood Count 8.8 K/mm3 (4.4-11.0)
[2024-05-27 18:05] LABS: BNP,B-Type NATRIURETIC PEPTIDE 152.2 pg/mL (0-100)
[2024-05-27 18:31] LABS: ALB/GLOB Ratio 0.8 RATIO (0.9-2.4); AST(SGOT) 20 U/L (15-37); Alanine Aminotransfer ALT/SGPT 29 U/L (16-61); Albumin, Serum 3.4 g/dL (3.2-5.0); Alkaline Phosphatase 75 U/L (45-117); Anion Gap 8 (5-15); BUN 22 mg/dL (7-18); BUN/Creat Ratio 16.8 RATIO (10-20); Calcium,Total 9.2 mg/dL (8.5-10.1); Chloride 105 mmol/L (98-107); Creatinine, Serum 1.31 mg/dL (0.70-1.30); EST Glomerular Filtration Rate 56 mL/min (>60); Est Glom Filt Rate - Afr Amer 67 mL/min (>60); Globulin 4.1 g/dL (2.2-4.2); Glucose 148 mg/dL (74-106); Magnesium 2.4 mg/dL (1.6-2.6); Protein, Total 7.5 g/dL (6.4-8.2); Sodium Level 138 mmol/L (136-145); T4 Free Direct 1.57 ng/dL (0.76-1.46); Thyroid Stim Hormone (TSH) < 0.01 uIU/mL (0.358-3.74)
== END | disposition home or self-care (01) ==
LOC: LAB 15:03
PROVIDERS: PCP Family Medicine; Referring Provider Nurse Practitioner Family; Visit Provider Nurse Practitioner Family
DX: R00.1 Bradycardia, unspecified (principal); I48.0 Paroxysmal atrial fibrillation; I49.3 Ventricular premature depolarization; R06.02 Shortness of breath
CPT/HCPCS: 36415; 80053; 83735; 83880; 84439; 84443; 85025

== ENCOUNTER → 2024-06-10 | Outpatient (CLI) | payer MEDICARE, SELFPAY | END | disposition home or self-care (01) | LOC: PSN 08:37 | PROVIDERS: PCP Family Medicine; Referring Provider Nurse Practitioner Family; Visit Provider Nurse Practitioner Family | DX: R00.1 Bradycardia, unspecified (principal); I48.0 Paroxysmal atrial fibrillation; I49.3 Ventricular premature depolarization; R06.02 Shortness of breath | CPT/HCPCS: 93225; 93226 ==

== ENCOUNTER → 2024-06-11 | Outpatient (CLI) | payer MEDICARE, SELFPAY ==
[2024-06-11 15:27] LABS: T4 Free Direct 1.27 ng/dL (0.76-1.46); Thyroid Stim Hormone (TSH) 0.06 uIU/mL (0.358-3.74)
[2024-06-15 16:10] LABS: Thyroglobulin Antibody < 1.0 IU/mL (0.0-0.9); Thyroid Peroxidase AB < 9 IU/mL (0-34); Thyroid Stim Immunoglob <0.10 IU/L (0.00-0.55)
== END | disposition home or self-care (01) ==
LOC: LAB 14:10
PROVIDERS: PCP Family Medicine; Referring Provider Family Medicine; Visit Provider Family Medicine
DX: E05.90 Thyrotoxicosis, unspecified without thyrotoxic crisis or storm (principal)
CPT/HCPCS: 36415; 84439; 84443; 84445; 84481; 86376; 86800

== ENCOUNTER → 2024-06-21 | Outpatient (CLI) | payer MEDICARE, SELFPAY ==
--- NOTE | 2024-06-21 12:38 | US_ITS ---
INDICATION: Thyrotoxicosis, unspecified without thyrotoxic crisis or storm EXAMINATION: Ultrasound US Thyroid (eg thyroid, parathyroid, parotid) TECHNIQUE: Taylor scale and color doppler imaging was performed of the thyroid gland. COMPARISON: No relevant prior comparison study available FINDINGS: RIGHT THYROID LOBE: 4.2 x 1.7 x 1.5 cm cm. Parenchyma: The gland echotexture is homogenous. Thyroid vascularity is normal. LEFT THYROID LOBE: 3.9 x 1.6 x 1.5 cm. Parenchyma: The gland echotexture is homogenous. Thyroid vascularity is normal. ISTHMUS: 0.2 cm in maximum AP dimension. Estimated total number of nodules greater than equal to 1 cm: 1. Refuge Manager nodules are described as follows: 1. Location: Right upper Size: 1.1 x 0.7 x 0.6 cm. Nodule characteristics: Composition: Solid or almost completely solid (2). Echogenicity: Hypoechoic (2). Shape: Wider than tall (0). Margins: Smooth (0). Echogenic Foci: None (0). ACR TI-RADS total points: 4. ACR TI-RADS category: 4. 2. Location: Left mid Size: 0.6 x 0.4 x 0.3 cm. Nodule characteristics: Composition: Mixed cystic and solid (1). Echogenicity: Isoechoic (1). Shape: Wider than tall (0). Margins: Smooth (0). Echogenic Foci: None (0). ACR TI-RADS total points: 2. ACR TI-RADS category: 2. LYMPH NODES: No lymphadenopathy is seen in the tissue surrounding the thyroid gland. US/Thyroid IMPRESSION: Thyroid nodules are identified. Nodule #1 there is appropriate for follow-up in one year. ACR TI-RADS RECOMMENDATION REFERENCE: Ultrasound-guided fine-needle aspiration, follow-up ultrasound, no further follow-up. *TR 1 (0 points) and TR 2 (2 points): No FNA or follow-up. *TR 3 (3 points): FNA if more than or equal to 2.5 cm in maximum dimension. Follow-up ultrasound in 1, 3, and 5 years if 1.5 to 2.4 cm in maximum dimension. *TR 4 (4-6 points): FNA if more than or equal to 1.5 cm in maximum dimension. Follow-up ultrasound in 1, 2, 3, and 5 years if 1 to 1.4 cm in maximum dimension. *TR 5 (more than or equal to 7 points): FNA if more than or equal to 1 cm in maximum dimension. Follow-up ultrasound every year for 5 years if 0.5 to 0.9 cm in maximum dimension. *TR 3, TR 4, or TR 5 nodules that are below the size threshold for follow-up receive no follow-up. Electronically Signed: Scar Clark MD at 8:43 EDT ,
[2024-06-21 14:19] LABS: Thyroid Stim Hormone (TSH) 0.24 uIU/mL (0.358-3.74)
== END | disposition home or self-care (01) ==
LOC: US 12:37 → LAB 13:15
PROVIDERS: PCP Family Medicine; Referring Provider Family Medicine; Visit Provider Family Medicine
DX: E05.90 Thyrotoxicosis, unspecified without thyrotoxic crisis or storm (principal)
CPT/HCPCS: 36415; 76536; 84443

== ENCOUNTER → 2024-06-26 | Outpatient (CLI) | payer MEDICARE, SELFPAY | END | disposition home or self-care (01) | LOC: LAB 09:42 | PROVIDERS: PCP Family Medicine; Referring Provider Nurse Practitioner; Visit Provider Nurse Practitioner | DX: C61 Malignant neoplasm of prostate (principal); Z12.5 Encounter for screening for malignant neoplasm of prostate | CPT/HCPCS: 84153; G0103 ==

== ENCOUNTER → 2024-06-28 | Outpatient (CLI) | payer MEDICARE, SELFPAY ==
--- NOTE | 2024-06-28 06:37 | ECHOCS_ITS ---
Reason For Study: PVC BURDEN Procedure This was a 2D Doppler, Color Flow transthoracic echocardiogram. The study was technically difficult. Contrast injection was performed. Exam performed in department. Left Ventricle Normal LV size. Left ventricular systolic function is normal. The left ventricular ejection fraction is 65 %. No regional wall motion abnormalities noted. Right Ventricle Normal RV size. Atria The left atrium is moderately enlarged. Normal right atrium. Great Vessels Normal aortic root. Pericardium/Pleural No pericardial effusion. Medication Diluted definity 1ml given slow IV push to enhance endocardial definition. MMode/2D Measurements & Calculations LVIDd: 5.0 cm IVSd: 1.1 cm LVOT diam: 2.0 cm LVIDs: 3.5 cm LVPWd: 1.0 cm FS: 29.6 % LVOT area: 3.0 cm2 Ao root diam: 4.1 cm LAV(MOD-sp4): 72.4 ml LVAd ap4: 37.0 cm2 LVLd ap4: 8.3 cm EDV(MOD-sp4): 134.7 ml EDV(sp4-el): 139.9 ml LVAs ap4: 15.1 cm2 LVLs ap4: 6.2 cm ESV(MOD-sp4): 31.7 ml ESV(sp4-el): 31.3 ml EF(MOD-sp4): 76.5 % EF(sp4-el): 77.6 % SV(MOD-sp4): 103.0 ml SV(sp4-el): 108.5 ml LA A4 area: 25.5 cm2 LA dimension(2D): 4.7 cm RA A4 area: 21.2 cm2 Time Measurements MV dec time: 0.19 sec Doppler Measurements & Calculations MV E max nicho: 77.5 cm/sec Lat Peak E' Nicho: 11.8 cm/sec Med Peak E' Nicho: 7.1 cm/sec MV A max nicho: 61.7 cm/sec E/E' lat: 6.5 E/E' med: 10.9 MV E/A: 1.3 MV dec slope: 398.3 cm/sec2 Ao V2 max: 147.7 cm/sec LV V1 max: 139.2 cm/sec Ao max P.7 mmHg LV V1 max P.8 mmHg Ao V2 mean: 73.5 cm/sec LV V1 mean P.9 mmHg Ao mean P.0 mmHg LV V1 mean: 91.1 cm/sec Ao V2 VTI: 31.1 cm LV V1 VTI: 31.4 cm AV (velocity ratio): 1.0 LORI(I,D): 3.1 cm2 LORI(V,D): 2.9 cm2 SV(LVOT): 95.3 ml PA V2 max: 90.0 cm/sec PI end-d nicho: 104.4 cm/sec PA V2 mean: 69.9 cm/sec ECHO/Echo Complete W/ Contrast Interpretation Summary Normal LV size. Left ventricular systolic function is normal. The left ventricular ejection fraction is 65 %. The left atrium is moderately enlarged. Contrast injection was performed. Ordering Physician: Rom Richardson Referring Physician: Rom Richardson Performed By: Teressa Hooks RCS
--- NOTE | 2024-06-28 10:37 | STRESSREP ---
Stress Test Report Pharmacologic myocardial perfusion stress test. 83-year-old male with a history of coronary disease Resting EKG demonstrates normal sinus rhythm with a rate of 76 and frequent premature ventricular complexes. Resting blood pressure is 128/72 mmHg. 0.4 mg of regadenoson was infused per usual protocol followed by rapid intravenous saline flush injection. Continuous EKG monitoring was performed. The maximum heart rate was 101 bpm which was 73% of max impacted heart rate the maximum workload was 1 metabolic equivalent. At rest there were no ST or T wave changes noted to suggest ischemia and at peak infusion nonspecific ST changes were noted which did not meet the criteria for ischemia. No clinical angina is noted. The final blood pressure was 120/72 mmHg. Myocardial perfusion protocol. 11.2 mCi of technetium 99m sestamibi was injected at rest. 0.4 mg of regadenoson was infused per usual protocol. At peak infusion 32 mCi of technetium 99m sestamibi was injected stress images were obtained stress and rest images were reconstructed and compared in the short axis vertical long and horizontal long axis. Gated images were also obtained. Perfusion SPECT analysis: Review of the stress images demonstrate normal uptake of tracer noted in all areas of the myocardium. The resting images similar demonstrated normal uptake of tracer noted in all areas of the myocardium. No areas of reversibility are noted to suggest ischemia and no previous infarct is noted. Gated SPECT analysis: The gated ejection fraction is 59. Conclusion: Normal pharmacologic myocardial perfusion stress test. Preserved ejection fraction.
== END | disposition home or self-care (01) ==
LOC: CVS 06:36
PROVIDERS: PCP Family Medicine; Referring Provider Nurse Practitioner Family; Visit Provider Nurse Practitioner Family
DX: I49.3 Ventricular premature depolarization (principal); Z95.1 Presence of aortocoronary bypass graft; I25.10 Atherosclerotic heart disease of native coronary artery without angina pectoris; I10 Essential (primary) hypertension
CPT/HCPCS: 78452; 93017; 93306; A9500; Q9957; A4216; C8929; J2785

== ENCOUNTER → 2024-09-06 | Outpatient (CLI) | payer MEDICARE, SELFPAY ==
[2024-09-06 09:55] LABS: Erythrocyte Sedimentation Rate 10 mm/hr (0-20)
[2024-09-06 10:01] LABS: Hematocrit 37.1 % (40-54); Hemoglobin 12.6 g/dL (13.0-16.5); Mean Corpuscular Hgb 31.6 pg (27.0-32.0); Mean Platelet Vol. 10.4 fl (6.2-12.0); Platelet Count 215 K/mm3 (150-450); RBC Distribution Width CV 12.6 % (11.6-14.6); Red Blood Count 3.99 M/mm3 (4.6-6.2); White Blood Count 8.4 K/mm3 (4.4-11.0)
[2024-09-06 11:07] LABS: ALB/GLOB Ratio 0.9 RATIO (0.9-2.4); AST(SGOT) 14 U/L (15-37); Alanine Aminotransfer ALT/SGPT 23 U/L (16-61); Albumin, Serum 3.5 g/dL (3.2-5.0); Alkaline Phosphatase 74 U/L (45-117); Anion Gap 8 (5-15); BUN 14 mg/dL (7-18); BUN/Creat Ratio 11.7 RATIO (10-20); Calcium,Total 9.1 mg/dL (8.5-10.1); Chloride 108 mmol/L (98-107); EST Glomerular Filtration Rate 62 mL/min (>60); Est Glom Filt Rate - Afr Amer 74 mL/min (>60); Free T3 2.4 pg/mL (2.18-3.98); Globulin 3.9 g/dL (2.2-4.2); Glucose 101 mg/dL (74-106); Potassium 4.1 mmol/L (3.5-5.1); Protein, Total 7.4 g/dL (6.4-8.2); Sodium Level 139 mmol/L (136-145); T4 Free Direct 0.86 ng/dL (0.76-1.46)
== END | disposition home or self-care (01) ==
LOC: LAB 08:28
PROVIDERS: PCP Family Medicine; Referring Provider Internal Medicine Endocrinology, Diabetes & Metabolism; Visit Provider Internal Medicine Endocrinology, Diabetes & Metabolism
DX: R79.89 Other specified abnormal findings of blood chemistry (principal); I48.91 Unspecified atrial fibrillation; Z79.899 Other long term (current) drug therapy; I10 Essential (primary) hypertension; Z95.1 Presence of aortocoronary bypass graft
CPT/HCPCS: 36415; 80053; 84439; 84443; 84481; 85027; 85652

== ENCOUNTER → 2024-09-28 | Outpatient (CLI) | payer MEDICARE, SELFPAY ==
[2024-09-28 12:47] LABS: PSA,Total- Diagnostic 6.99 ng/mL (0.0-4.0)
== END | disposition home or self-care (01) ==
LOC: LAB 10:54
PROVIDERS: PCP Family Medicine; Referring Provider Nurse Practitioner; Visit Provider Nurse Practitioner
DX: C61 Malignant neoplasm of prostate (principal)
CPT/HCPCS: 36415; 84153

== ENCOUNTER → 2024-10-06 | Outpatient (CLI) | payer MEDICARE, SELFPAY ==
--- NOTE | 2024-10-06 08:19 | NM_ITS ---
CLINICAL: 83-year-old male with history of suppressed TSH and reported thyroid nodularity. I-123 THYROID UPTAKE and SCAN COMPARISON: Thyroid ultrasound reports 06/21/2024 FINDINGS: The patient was administered a 312 uCi I-123 capsule by mouth. The 4-hour I-123 radioactive iodine thyroidal uptake was calculated to be 5.6 % (normal 5.0 to 25.0 %). The 24-hour I-123 radioactive iodine thyroidal uptake was calculated to be 21.9 % (normal 5.0 to 40.0 %). The I-123 thyroid scan demonstrates homogeneous radiopharmaceutical concentration throughout both lobes of a U -shaped thyroid gland. There are no colloidal parenchymal hypofunctioning cold nodules noted in either lobe of the thyroid gland. NM/Thyroid Uptake Single or Mult IMPRESSION: 1. NORMAL 4- and 24-hour I-123 radioactive iodine thyroidal uptakes. 2. 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 (Mary et al, J Nucl Med 32: 1455, 1991). 3. No hypofunctioning-cold nodules are identified. Electronically Signed: Gus Avendaño DO at 7:45 EST ,
== END | disposition home or self-care (01) ==
PROVIDERS: PCP Family Medicine; Referring Provider Internal Medicine Endocrinology, Diabetes & Metabolism; Visit Provider Internal Medicine Endocrinology, Diabetes & Metabolism
DX: R79.89 Other specified abnormal findings of blood chemistry (principal); I48.91 Unspecified atrial fibrillation; Z79.899 Other long term (current) drug therapy; I10 Essential (primary) hypertension; Z95.1 Presence of aortocoronary bypass graft
CPT/HCPCS: 78012; A9516

== ENCOUNTER → 2024-12-24 | Outpatient (CLI) | payer MEDICARE, SELFPAY ==
[2024-12-24 09:47] LABS: AST(SGOT) 17 U/L (15-37); Alanine Aminotransfer ALT/SGPT 29 U/L (16-61); Albumin, Serum 3.5 g/dL (3.2-5.0); Alkaline Phosphatase 63 U/L (45-117); Bilirubin, Direct 0.13 mg/dL (0.00-0.30); Cholesterol 126 mg/dL (200); High Density Lipoprotein 42 mg/dL; Protein, Total 7.5 g/dL (6.4-8.2); Triglycerides 147 mg/dL; Very Low Density Lipoprotein 29 mg/dL (5-40)
[2024-12-24 09:51] LABS: PSA,Total- Diagnostic < 0.01 ng/mL (0.0-4.0)
== END | disposition home or self-care (01) ==
LOC: LAB 08:26
PROVIDERS: Nurse Practitioner Family; PCP Family Medicine; Referring Provider Nurse Practitioner; Visit Provider Nurse Practitioner
DX: C61 Malignant neoplasm of prostate (principal); E78.00 Pure hypercholesterolemia, unspecified
CPT/HCPCS: 36415; 80061; 80076; 84153

== ENCOUNTER → 2025-01-24 | Outpatient (CLI) | payer MEDICARE, SELFPAY ==
[2025-01-24 10:50] LABS: ALB/GLOB Ratio 1.3 RATIO (0.9-2.4); AST(SGOT) 20 U/L (<=37); Alanine Aminotransfer ALT/SGPT 20 U/L (<=46); Alkaline Phosphatase 64 U/L (40-129); Anion Gap 11 (5-15); BUN 24 mg/dL (4-19); BUN/Creat Ratio 19.2 RATIO (10-20); Calcium,Total 9.4 mg/dL (7.6-11.0); Carbon Dioxide 23.5 mmol/L (21.0-32.0); Chloride 105 mmol/L (98-108); Creatinine, Serum 1.23 mg/dL (0.70-1.20); EST Glomerular Filtration Rate 58 (>60); Globulin 3.1 g/dL (2.2-4.2); Glucose 108 mg/dL (70-99); Potassium 4.3 mmol/L (3.3-5.1); Protein, Total 7.1 g/dL (5.9-8.4); Sodium Level 139 mmol/L (133-145); Total Bilirubin 0.56 mg/dL (0.00-1.30); Vitamin D,25 Hydroxy 16.6 ng/mL (30-100)
== END | disposition home or self-care (01) ==
LOC: LAB 08:19
PROVIDERS: PCP Family Medicine; Referring Provider Internal Medicine Endocrinology, Diabetes & Metabolism; Visit Provider Internal Medicine Endocrinology, Diabetes & Metabolism
DX: R79.89 Other specified abnormal findings of blood chemistry (principal); I48.91 Unspecified atrial fibrillation; I10 Essential (primary) hypertension; Z95.1 Presence of aortocoronary bypass graft; E04.1 Nontoxic single thyroid nodule
CPT/HCPCS: 36415; 80053; 82306; 84443; 84481

== ENCOUNTER 2025-02-24 19:51 | Emergency (ER) | payer MEDICARE, SELFPAY ==
[2025-02-24 19:52] VITALS: BP 111/77; PULSE 122; RESP 17; TEMP 36.2; O2SAT 99; BMI 29.4
--- NOTE | 2025-02-24 20:07 | EKG12_ITS ---
Test Reason : Blood Pressure : */* mmHG Vent. Rate : 121 BPM Atrial Rate : * BPM P-R Int : * ms QRS Dur : 108 ms QT Int : 358 ms P-R-T Axes : * 38 -17 degrees QTcB Int : 508 ms Critical Test Result: STEMI Atrial fibrillation with rapid ventricular response ST & T wave abnormality, consider lateral ischemia Baseline artifact Abnormal ECG Confirmed by Tarik Longoria ([id number]), script editor ASHKAN SCHWAB ([id number]) on 02/28/2025 6:47:10 AM Referred By: SRIDHAR Confirmed By: Tarik Longoria
[2025-02-24 20:22] VITALS: BP 162/80; PULSE 122; RESP 18; TEMP 36.9; O2SAT 98
--- NOTE | 2025-02-24 20:35 | CT_ITS ---
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 CONTRAST: Isovue 370 VOLUME: 100 mL One or more dose reduction techniques were used (e.g., Automated exposure control, adjustment of the mA and/or kV according to patient size, use of iterative reconstruction technique). RADIATION DOSE SUMMARY: CTDlvol: 27 mGy DLP: 624 mGycm COMPARISON: None. FINDINGS: Visualization of the floor of mouth is slightly limited by streak artifact from adjacent dental amalgam. Airway: The major airways are patent. There is enlargement of the left palatine tonsil with focal hypodensity centered within the left piriform fossa, measuring 3.8 x 2.9 cm (series 2, image 72). No area of rim enhancing fluid collection or edema. Salivary glands: Unremarkable. Lymph nodes: No cervical lymphadenopathy. Thyroid: Unremarkable. Vasculature: Mild calcific plaque of the aortic arch, aortic arch vessels, and bilateral carotid arteries. Orbits: Unremarkable at visualized levels. Paranasal sinuses and mastoids: Retention cyst or polyp within the right maxillary sinus. The mastoid air cells and visualized paranasal sinuses are otherwise well-aerated. Lung apices: Mild biapical pleuro-parenchymal scarring. Upper mediastinum: Prior median sternotomy. Bones: Multilevel degenerative changes of the spine. Other: Prior dental restorations. CT/Soft Tissue Neck WITH Contrast IMPRESSION: 1. Enlargement of the left palatine tonsil, most compatible with uncomplicated tonsillitis, however visualization is limited by streak artifact. Tonsillar neoplasm is an additional consideration, however fe lt less likely given patient's symptoms and presentation. Follow-up CT neck in 2-3 weeks is recommended to evaluate for re solution after appropriate antibiotic treatment. 2. No abscess or cervical lymphadenopathy. Findings were discussed by Dr. Mckeon with Jena Garcia via telephone at 9:3 5 p.m. on 02/24/2025. Reading Location: [facility]
[2025-02-24 20:52] LABS: Absolute Lymphocyte Count 1.25 X10^3/uL (0.83-4.51); Absolute Neutrophil Count 13.2 X10^3/uL (2.0-7.7); Basophil# 0.03 X10^3/uL; Basophil% 0.2 % (0-1); Eosinophil# 0.02 X10^3/uL; Eosinophils% 0.1 % (0-5); Hematocrit 37.2 % (40-54); Hemoglobin 12.9 g/dL (13.0-16.5); Lymphocyte # 1.25 X10^3/ul (0.83-4.51); Lymphocyte % 7.8 % (19-41); Mean Corp Hgb Conc 34.7 g/dL (32-36); Mean Corpuscular Hgb 32.2 pg (27.0-32.0); Mean Corpuscular Volume 92.8 fL (80-94); Mean Platelet Vol. 10.3 fl (6.2-12.0); Monocyte# 1.51 X10^3/uL; Monocyte% 9.4 % (0-10); NRBC Flagged by Analyzer 0 % (0-5); Neutrophil # 13.21 X10^3/uL (2.7-7.7); Neutrophil % 81.9 % (47-70); POSITIVE DIFFERENTIAL YES; Platelet Count 183 K/mm3 (150-450); RBC Distribution Width CV 12.8 % (11.6-14.6); RBC Distribution Width SD 43.8 fl (35.1-43.9); Red Blood Count 4.01 M/mm3 (4.6-6.2); White Blood Count 16.1 K/mm3 (4.4-11.0)
[2025-02-24] MEDS: Morphine 4 MG/ML Syringe IV (20:58)
[2025-02-24] MEDS: dexAMETHasone 10 MG/ML Vial IV (20:58)
[2025-02-24 20:59] LABS: Differential Indicated SCAN CRITERIA MET
[2025-02-24 21:00] VITALS: BP 143/79; PULSE 106; RESP 18; TEMP 36.9; O2SAT 99
[2025-02-24] MEDS: Acetaminophen 325 MG Tablet 650 MG PO (21:00)
[2025-02-24] MEDS: Ampicillin/Sulbactam 3 GM in 0.9% Normal Saline (100mL MB+) 100 ML IV (21:16)
[2025-02-24 21:25] LABS: ALB/GLOB Ratio 1.1 RATIO (0.9-2.4); AST(SGOT) 15 U/L (<=37); Alanine Aminotransfer ALT/SGPT 13 U/L (<=46); Albumin, Serum 4.1 g/dL (3.4-4.8); Alkaline Phosphatase 69 U/L (40-129); Anion Gap 13 (5-15); BUN 17 mg/dL (4-19); BUN/Creat Ratio 16.3 RATIO (10-20); Calcium,Total 9.5 mg/dL (7.6-11.0); Chloride 100 mmol/L (98-108); Creatinine, Serum 1.06 mg/dL (0.70-1.20); EST Glomerular Filtration Rate 70 (>60); Estimated Creatinine Clearance 64.14 ml/min (50-250); Globulin 3.6 g/dL (2.2-4.2); Glucose 138 mg/dL (70-99); Potassium 4.1 mmol/L (3.3-5.1); Protein, Total 7.7 g/dL (5.9-8.4); Sodium Level 134 mmol/L (133-145); Total Bilirubin 0.72 mg/dL (0.00-1.30)
[2025-02-24 21:56] LABS: Differential Comment SCANNED
[2025-02-24 21:57] LABS: Pathologist Review May foll
[2025-02-24 22:00] VITALS: BP 124/73; PULSE 89; RESP 18; TEMP 36.7; O2SAT 96
--- NOTE | 2025-02-24 22:40 | EX.ED.DYSGE1 ---
HPI History of Present Illness Chief Complaint: Sore Throat Informant: patient Narrative Narrative: Patient is an 84-year-old male with history of coronary disease presenting with 3 days of worsening throat pain. His PCP was out of office but he saw another doctor there 2 days ago. He did not have any swabs done. He started on azithromycin. Feels that over the past 24 hours he is having worsening left-sided throat pain and swelling. States is hard to chew and swallow. Is not been eating or drinking much. Denies associated fever. Denies any nausea or vomiting. Denies any associated chest pain or shortness of breath. Denies any cough. States the pain is now rating up into his left ear as well. He has been taking his regular medications. No other complaints or concerns reported at this time. Denies any history of anything like this before. Not taken anything for symptoms prior to arrival. [facility] Medical History Fatigue Low testosterone level in male Paroxysmal atrial fibrillation Multiple premature ventricular complexes Persistent atrial fibrillation Right bundle branch block (RBBB) New onset atrial fibrillation (11/27/21) Old inferior wall myocardial infarction Essential (primary) hypertension Postoperative atrial fibrillation Gynecomastia Prostate cancer HLD (hyperlipidemia) Atherosclerotic heart disease of [place] coronary artery without angina pectoris Home Medications ?Medication ?Instructions ?Recorded ?Last Taken ?Type aspirin 81 mg tablet,delayed 81 mg PO QDAY 10/22/17 Unknown History release (Adult Low Dose Aspirin) folic acid 0.8 mg capsule 800 mcg PO QDAY 10/22/17 Unknown History nitroglycerin 0.4 mg sublingual 0.4 mg sublingual Q5-15M PRN pain 08/06/23 Unknown Rx tablet #25 tabs amlodipine 10 mg tablet (Norvasc) 10 mg PO QDAY #90 tabs 03/05/24 Unknown Rx atorvastatin 10 mg tablet (Lipitor) 10 mg PO QHS #90 tabs 07/22/24 Unknown Rx losartan 25 mg tablet 25 mg PO DAILY #90 tabs 09/22/24 Unknown Rx levothyroxine 25 mcg capsule 25 mcg PO QDAY 12/24/24 Unknown History apixaban 5 mg tablet (Eliquis) 5 mg PO BID #180 tabs 01/25/25 Unknown Rx metoprolol tartrate 25 mg tablet 25 mg PO BID #180 tabs 02/07/25 Unknown Rx amoxicillin 875 mg-potassium 1 tab PO BID #20 tabs 02/24/25 Unknown Rx clavulanate 125 mg tablet oxycodone 5 mg capsule 5 mg PO Q8H PRN pain 3 days #10 02/24/25 Unknown Rx caps Allergy/AdvReac Type Severity Reaction Status Date / Time No Known Allergies Allergy Verified 02/24/25 19:55 Family History Father Cancer Prostate Cancer Surgical History History of cardioversion (01/14/22) History of coronary artery stent placement (09/19/98) H/O coronary artery bypass surgery (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) Social History Smoking Status: Never smoker second hand exposure: No alcohol intake: current alcohol intake frequency: a few times a week Alcohol type: beer substance use type: does not use caffeine: Yes Type: coffee Number of servings: 2 eating out: 1-3 times/week during the past year weight has: remained stable what type of physical activity do you participate in: walking and weight training frequency: 5-6 times per week duration: 45-60 minutes/day seatbelt use: always do you feel safe at home: Yes ROS ROS ED Constitutional Constitutional ED: Reports other Details: Reports generalized malaise ; Denies chills or fever(s) ENT ENT ED: Reports ear pain left and sore throat Cardiovascular Cardiovascular: Denies chest pain or palpitations Respiratory/Chest Respiratory/Chest: Denies cough or dyspnea Gastrointestinal Gastrointestinal: Denies abdominal pain, nausea or vomiting Musculoskeletal Musculoskeletal: Denies arthralgias or myalgias Integumentary Denies rash Neurologic Neurologic: Reports headache(s) Hematologic/Lymphatic Hematologic/Lymphatic: Reports easy bleeding, easy bruising and other Details: On Eliquis EXAM Physical Exam Const Vital Signs: 02/24/25 19:52 02/24/25 20:22 02/24/25 21:00 Temperature 97.2 F L 98.4 F 98.4 F Temperature Source Temporal Oral Oral Pulse Rate 122 H 122 H 106 H Respiratory Rate 17 18 18 Blood Pressure 111/77 162/80 H 143/79 H Blood Pressure Mean 88 107 96 Pulse Ox 99 98 99 Oxygen Delivery Method Room Air Room Air Room Air 02/24/25 22:00 Temperature 98.1 F Temperature Source Oral Pulse Rate 89 Respiratory Rate 18 Blood Pressure 124/73 H Blood Pressure Mean 89 Pulse Ox 96 Oxygen Delivery Method Room Air Positive well nourished and well developed General Appearance ED: well developed and NAD HEENT Reports TM's clear and moist mucous membranes HEENT Narrative: No trismus. Normal phonation. Uvula is midline. Patient has significant swelling of the left tonsil on exam. No obvious exudate. No dental tenderness to palpation. Tympanic Membrane ED: Yes TM's clear Eyes PERRL Neck supple Neck Narrative: There is palpation of the left submandibular area General: tenderness Chest Wall inspection of chest normal Resp normal respiratory effort and clear to auscultation bilaterally Auscultation: Negative for rhonchi or wheezes Cardio regular rhythm Rate: tachycardic GI normal to inspection, nondistended, normoactive bowel sounds and non-tender Extremity normal to inspection General Extremety ED: Negative for edema General Extremity: Negative for edema Neuro oriented x3 Sensorium / Orientation: alert Motor Exam: Negative for general weakness Psych mental status grossly normal MDM MDM MDM Narrative Medical decision making narrative: Patient is a 84-year-old male presenting with 3 days of worsening left-sided throat pain and sensation of throat swelling. He is tender in his submandibular area. Upon arrival he is tachycardic and protocol EKG was obtained as he does have a cardiac history. Patient is not complaining of any chest pain or shortness of breath. EKG showed atrial fibrillation with rapid ventricular response at a rate of 121 bpm The computer interpreted STEMI but I disagree with this interpretation. He has underlying right bundle michelle block and I think the block is looking worse since he is in A-fib with RVR. On exam patient has left-sided tonsillar swelling. Concern for possible peritonsillar abscess versus parotitis versus pharyngitis. Strep swab obtained is negative. Patient given IV Decadron and a dose of Unasyn as well as a dose of morphine in the ER for symptoms. He is also given Tylenol. Heart rate improved in the emergency room and normalizes. He is afebrile in the ER. He has a leukocytosis with white blood cell count of 16.1. No left shift. CMP largely normal. Lactate normal at 1.0. CT soft tissue neck with IV contrast shows enlargement of the left palatine tonsil most compatible with uncomplicated tonsillitis. There is possibility of tonsillar neoplasm but given the acute onset of symptoms less likely. On repeat evaluation patient is feeling much better. Is tolerating p.o. appears comfortable discharge home. Will start him on Augmentin and have him stop the azithromycin. I did speak with Dr. Hull given his age and findings today. Patient is established with him. He is agreeable with this plan and recommends outpatient follow-up in 2 to 3 weeks. Patient given return precautions. As he cannot take NSAIDs is given a short course of oxycodone for breakthrough pain relief. Patient discharged home in improved and stable condition. Lab Data Attestation: I reviewed the patient's lab results. Labs: Laboratory Results - last 24 hr 02/24/25 20:36 WBC 16.1 H RBC 4.01 L Hgb 12.9 L Hct 37.2 L MCV 92.8 MCH 32.2 H MCHC 34.7 RDW Std Deviation 43.8 RDW Coeff of Jeanmarie 12.8 Plt Count 183 MPV 10.3 Immature Gran % (Auto) 0.600 Neut % (Auto) 81.9 H Lymph % (Auto) 7.8 L Tate % (Auto) 9.4 Eos % (Auto) 0.1 Baso % (Auto) 0.2 Absolute Neuts (auto) 13.2 H Absolute Lymphs (auto) 1.25 Nucleated RBC % 0 Differential Comment SCANNED Diff Path Review May foll Sodium 134 Potassium 4.1 Chloride 100 Carbon Dioxide 21.0 Anion Gap 13 BUN 17 Creatinine 1.06 Estim Creat Clear Calc 64.14 Est GFR (MDRD) Non-Af 70 BUN/Creatinine Ratio 16.3 Glucose 138 H Lactic Acid 1.0 Calcium 9.5 Total Bilirubin 0.72 AST 15 ALT 13 Alkaline Phosphatase 69 Total Protein 7.7 Albumin 4.1 Globulin 3.6 Albumin/Globulin Ratio 1.1 Radiography Diagnostic Testing: Clinical Impression(s) from Imaging Studies Soft Tissue Neck CT 02/24/25 20:35 IMPRESSION: 1. Enlargement of the left palatine tonsil, most compatible with uncomplicated tonsillitis, however visualization is limited by streak artifact. Tonsillar neoplasm is an additional consideration, however felt less likely given patient's symptoms and presentation. Follow-up CT neck in 2-3 weeks is recommended to evaluate for resolution after appropriate antibiotic treatment. 2. No abscess or cervical lymphadenopathy. Findings were discussed by Dr. Mckeon with Jena Garcia via telephone at 9:35 p.m. on 02/24/2025. Reading Location: [facility] Rhythm Strip Rhythm Strip: A-fib Rate: 121 Ectopy: PVC(s) EKG Initial EKG: Attestation: I personally reviewed and interpreted this EKG as follows: Interpretation: Atrial Fibrillation Comments: Atrial fibrillation with rapid ventricular sponsor rate 121 bpm Normal axis Normal intervals Right bundle branch block PVC present Strain pattern present Management Discussion w/another healthcare provider: Claim Processing Specialist Discharge Plan Triage Chief Complaint: Sore Throat ED Provider: Jena Garcia Dx/Rx/DC Orders Clinical Impression: Acute tonsillitis, Tachycardia Instructions: Tonsillitis in Adults Prescriptions: New amoxicillin-pot clavulanate 875-125 mg tablet 1 tab PO BID Qty: 20 0RF oxycodone 5 mg capsule 5 mg PO Q8H PRN (Reason: pain) 3 Days Qty: 10 0RF No Action nitroglycerin 0.4 mg tablet, sublingual 0.4 mg SUBLINGUAL Q5-15M PRN (Reason: pain) Qty: 25 3RF amlodipine [Norvasc] 10 mg tablet 10 mg PO QDAY Qty: 90 3RF levothyroxine 25 mcg capsule 25 mcg PO QDAY aspirin [Adult Low Dose Aspirin] 81 mg tablet,delayed release (DR/EC) 81 mg PO QDAY folic acid 0.8 mg capsule 800 mcg PO QDAY atorvastatin [Lipitor] 10 mg tablet 10 mg PO QHS Qty: 90 3RF losartan 25 mg tablet 25 mg PO DAILY Qty: 90 3RF Eliquis 5 mg tablet 5 mg PO BID Qty: 180 3RF metoprolol tartrate 25 mg tablet 25 mg PO BID Qty: 180 3RF Primary Care Provider: Cordell Lala Referrals: Cordell Lala MD [Primary Care Provider] - Crow Beltran MD [Med Staff - Active Staff] - (2 weeks ) Activity Restrictions/Additional Instructions: Suspect you have tonsillitis/pharyngitis as cause your symptoms. You are started on antibiotics for this. Stop taking the azithromycin. Take Tylenol as needed for pain. You were given a short course of oxycodone for breakthrough severe pain. There is a slim chance that there could be a malignancy causing this and I do recommend you follow-up with ear nose and throat, Dr. Hull. Call his office to be seen in 2 to 3 weeks per his recommendations. If your symptoms worsen, you develop a fever, have voice changes or unable to swallow please return to the emergency room. Print Language: Gabonese Disposition Disposition: Home, Self Care
[2025-02-24 22:48] VITALS: BP 136/73; PULSE 92; RESP 18; TEMP 37.2; O2SAT 97
== END 2025-02-24 23:02 | disposition home or self-care (01) ==
PROVIDERS: Emergency Provider Emergency Medicine; PCP Family Medicine; Visit Provider Emergency Medicine
DX: J03.90 Acute tonsillitis, unspecified (principal); I48.0 Paroxysmal atrial fibrillation; E78.5 Hyperlipidemia, unspecified; I10 Essential (primary) hypertension; I25.10 Atherosclerotic heart disease of native coronary artery without angina pectoris; R00.0 Tachycardia, unspecified; I25.2 Old myocardial infarction; Z85.46 Personal history of malignant neoplasm of prostate; Z79.82 Long term (current) use of aspirin; Z79.899 Other long term (current) drug therapy; Z79.01 Long term (current) use of anticoagulants; Z95.5 Presence of coronary angioplasty implant and graft
CPT/HCPCS: 70491; 80053; 83605; 85025; 87651; 93005; 96365; 96375; 99282; Q9967; A4216; J0295

== ENCOUNTER → 2025-04-05 | Outpatient (CLI) | payer MEDICARE, SELFPAY ==
[2025-04-05 12:24] LABS: PSA,Total- Diagnostic 0.21 ng/mL (0.00-4.00)
== END | disposition home or self-care (01) ==
LOC: LAB 10:30
PROVIDERS: PCP Family Medicine; Referring Provider Urology; Visit Provider Urology
DX: C61 Malignant neoplasm of prostate (principal)
CPT/HCPCS: 36415; 84153

== ENCOUNTER → 2025-04-18 | Outpatient (CLI) | payer MEDICARE, SELFPAY ==
--- NOTE | 2025-04-18 11:54 | RAD_ITS ---
PROCEDURE: CHEST PA AND LATERAL 04/18/2025 REASON FOR EXAM: CARDIOVERSION TECHNIQUE: Frontal and lateral views of the chest. COMPARISON: Chest x-ray studies dated 11/10/2022 and 11/05/2022 FINDINGS: Hardware: Median sternotomy wires and vascular clips are present. Heart: Heart size and configuration are within normal limits. Pulmonary vasculature and hilar structures are unremarkable. Mediastinum: Unremarkable Lungs: Stable pulmonary nodules are seen which appear to represent granulomas and/or summation artifact. No new pulmonary nodules are seen. There is no atelectasis, consolidation, effusion or pneumonic infiltrate. There is no lung contusion or pneumothorax. Bones: No acute osseous abnormality is noted. RAD/Chest PA and Lateral IMPRESSION: No acute cardiopulmonary process is identified radiographically. Reading Location: [id number]
[2025-04-18 13:44] LABS: BUN 21 mg/dL (4-19); BUN/Creat Ratio 18.9 RATIO (10-20); Calcium,Total 9.6 mg/dL (7.6-11.0); Carbon Dioxide 22.7 mmol/L (21.0-32.0); Chloride 105 mmol/L (98-108); Creatinine, Serum 1.13 mg/dL (0.70-1.20); EST Glomerular Filtration Rate 64 (>60); Glucose 92 mg/dL (70-99); Potassium 4.6 mmol/L (3.3-5.1); Sodium Level 139 mmol/L (133-145)
[2025-04-18 13:45] LABS: Anion Gap 11 (5-15); Pro- Brain NATRIURETIC PEPTIDE 1310 pg/mL (<=1800)
[2025-04-18 13:51] LABS: Free T3 2.7 pg/mL (2.18-3.98)
[2025-04-18 14:03] LABS: Absolute Lymphocyte Count 1.43 X10^3/uL (0.83-4.51); Absolute Neutrophil Count 5.1 X10^3/uL (2.0-7.7); Basophil# 0.04 X10^3/uL; Basophil% 0.5 % (0-1); Eosinophil# 0.14 X10^3/uL; Eosinophils% 1.9 % (0-5); Hematocrit 36.9 % (40-54); Hemoglobin 12.4 g/dL (13.0-16.5); Lymphocyte # 1.43 X10^3/ul (0.83-4.51); Mean Corp Hgb Conc 33.6 g/dL (32-36); Mean Corpuscular Hgb 32.2 pg (27.0-32.0); Mean Corpuscular Volume 95.8 fL (80-94); Mean Platelet Vol. 10.1 fl (6.2-12.0); Monocyte# 0.78 X10^3/uL; Monocyte% 10.4 % (0-10); NRBC Flagged by Analyzer 0 % (0-5); Neutrophil # 5.09 X10^3/uL (2.7-7.7); Neutrophil % 67.7 % (47-70); Platelet Count 209 K/mm3 (150-450); RBC Distribution Width CV 12.9 % (11.6-14.6); RBC Distribution Width SD 45.4 fl (35.1-43.9); Red Blood Count 3.85 M/mm3 (4.6-6.2); White Blood Count 7.5 K/mm3 (4.4-11.0)
== END | disposition home or self-care (01) ==
LOC: RAD 11:54
PROVIDERS: PCP Family Medicine; Referring Provider Nurse Practitioner Gerontology; Visit Provider Nurse Practitioner Gerontology
DX: I48.0 Paroxysmal atrial fibrillation (principal); E05.90 Thyrotoxicosis, unspecified without thyrotoxic crisis or storm; R06.02 Shortness of breath
CPT/HCPCS: 36415; 71046; 80048; 83880; 84439; 84443; 84481; 85025

== ENCOUNTER → 2025-05-07 | Outpatient (CLI) | payer MEDICARE, SELFPAY ==
--- OUTSIDE RECORDS SUMMARY | 2025-05-07 08:05 | XMS RPT_ITS | CCD ---
Author Organization [facility] Care Team Providers Care Child Care Director Name Role Phone ElyLisa Unavailable Chrissy Silva Unavailable Unavailable MD Maximino, Parag Bhatti Unavailable Rosa HOOKER, Amara Mccarthy Unavailable Unavailable Lisa Ely Unavailable Dr. Rom Mendez Referring Provider 1([facility])[phone] Parag Stanton Attending Provider 1([facility])-[phone] DO Janell Walters Primary Care Provider 1([facility] )[phone] Dr. Rom Mendez Referring Provider 1([facility])[phone] Parag Stanton Attending Provider 1([facility])[phone] DO Janell Walters Primary Care Provider 1([facility] )[phone] DO Janell Walters M Primary Care Provider 1([facility] )[phone] DO Janell Walters M Referring Provider 1([facility])[phone] Dr. Parag Stanton Attending Provider 1([facility])-[phone] DO Janell Walters M Primary Care Provider 1([facility] )[phone] DO Janell Walters M Referring Provider 1([facility])[phone] Harry SECURITY ESCORT, SECURITY ESCORT-C Lety Attending Provider DO Janell Walters M Primary Care Provider DO Janell Walters M Referring Provider 1([facility])[phone] Harry MAYBERRY, SECURITY ESCORT-C Lety Attending Provider KM ESCALANTE DO Primary Care Physician CHERI MURCIA MD Attending Unavaila [facility] KM ESCALANTE DO Primary Care Unavailable Spike MULLINS, Cordell Primary Care Provider Divina MULLINS, Dr. Cheri Donovan Attending Provide r Divina MULLINS, Dr. Cheri Donovan Referring Provide r Zuleyka Ojeda Attending Provider Zuleyka Ojeda Referring Provider Dylan SECURITY ESCORT-C, Rom [place]span[place] Other Provider Janell Walters DO Referring Provider Dylan SECURITY ESCORT-C, Rom [place] Attending Provider [phone] Spike MULLINS, Cordell Primary Care Provider Divina MULLINS, Dr. Cheri Donovan Attending Provide r Divina MULLINS, Dr. Cheri Donovan Referring Provide r Dr. Jena Garcia DO Emergency Provider Dr. Jena Garcia DO Attending Provider Leah MULLINS, Dr. Nilson Nicholas Attending Provider [phone] Leah MULLINS, Dr. Nilson Nicholas Referring Provider Spike MULLINS, Cordell Referring Provider Harry SECURITY ESCORT-C, Lety Attending Provider Spike, Chalon Primary Care Unavailable Divina, Cheri Na Referring Unavaila Pao Hernándeza Venus Attending Unavaila Zuleyka Ball Referring Unavailable Zuleyka Ojeda Attending Unavailable Spike, Chalon Primary Care Unavailable Dylan SECURITY ESCORT, Rom [place] Consulting Unavailable Raghunathan, Cheri Na Referring Unavaila ble Henrinatrichmond, Cheri Na Attending Unavaila ble Spike, Chalon Primary Care Unavailable Spike, Chalon Primary Care Unavailable Harry SECURITY ESCORT, Lety Referring Unavailable Mcdonald SECURITY ESCORT, Lety Attending Unavailable Spike, Chalon Primary Care Unavailable Maximino, Parag Referring Unavailable Maximino, Parag Attending Unavailable yDlan SECURITY ESCORT, Rom [place]span[place] Referring Unavailable Spike, Chalon Primary Care Unavailable Dylan SECURITY ESCORT, Rom H Attending Unavailable Spike, Chalon Primary Care Unavailable Spike, Chalon Referring Unavailable Spike, Avinashon Attending Unavailable [place], Zuleyka Referring Unavailable [place], Zuleyka Attending Unavailable Spike, Chalon Primary Care Unavailable [place], Zuleyka Referring Unavailable [place], Zuleyka Attending Unavailable Spike, Chalon Primary Care Unavailable Jena Garcia Attending Unavailable Spike, Chalon Primary Care Unavailable Roof SECURITY ESCORT, Rom Epsana Referring Unavailable Spike, Chalon Primary Care Unavailable Maximino, Parag Attending Unavailable Spike, Chalon Primary Care Unavailable Mcdonald SECURITY ESCORT, Lety Attending Unavailable Roof SECURITY ESCORT, Rom Espnaa Referring Unavailable Spike, Chalon Primary Care Unavailable Maximino, Parag Attending Unavailable Roof SECURITY ESCORT, Rom [place] Consulting Unavailable Spike, Chalon Primary Care Unavailable Spike, Chalon Referring Unavailable NoltZara Attending Unavailable Spike, Chalon Primary Care Unavailable Spike, Chalon Referring Unavailable Mcdonald SECURITY ESCORT, Lety Attending Unavailable Spike, Chalon Primary Care Unavailable Roof SECURITY ESCORT, Rom [place] Attending Unavailable Spike, Chalon Primary Care Unavailable Raghunathan, Cheri Na Referring Unavaila ble Raghunatrichmond, Cheri Na Attending Unavaila ble Leah, Nilson Nicholas Referring Unavailable Leah, Nilson Nicholas Attending Unavailable Spike, Chalon Primary Care Unavailable Roof SECURITY ESCORT, Rom H Attending Unavailable Spike, Chalon Primary Care Unavailable Roof SECURITY ESCORT, Rom H Referring Unavailable Roof SECURITY ESCORT, Rom H Referring Unavailable Roof SECURITY ESCORT, Rom [place] Attending Unavailable Spike, Chalon Primary Care Unavailable Spike, Chalon Primary Care Unavailable Spike, Chalon Referring Unavailable Spike, Avinashon Attending Unavailable Spike, Chalon Primary Care Unavailable Roof SECURITY ESCORT, Rom [place]span[place] Attending Unavailable Janell Walters Referring Unavailable Harry MAYBERRY-CLety Referring Provider Medications Current Medications Medication Drug Class(es) Dates Sig (Normalized) Sig (Original) acetaminophen 325 mg oral tablet (11 sources) Start: 10-22-2012 Tylenol 325 mg oral tablet Dose : 650 mg = 2 tab(s), Oral, q4h, PRN for pain, # 60 tab(s), 0 Refill(s) Start Date: 10/22/12 Status: Ordered Start: 05-24-2011 End: 11-29-2015 TYLENOL 325 MG TABS PRN 2010 ACETAMINOPHEN [id number] Parag Stanton MD aspirin 81 mg delayed release oral tablet (20 sources) Platelet Aggregation Inhibitor, Nonsteroidal Anti-inflammatory Drug Start: 10-22-2017 Aspirin (Adult Lo w Dose Aspirin) 81 mg tablet,delayed release (DR/EC) Active 81 mg PO daily October 22, 2017 1:00am Start: 05-24-2011 aspirin 81 mg oral tablet (chewable) Dose : 81 mg = 1 tab(s), Oral, Daily, 0 Refill(s) Start Date: 10/22/12 Status: Ordered Start: 05-24-2011 take 1 tablet by leslie th once daily ASPIRIN 81 MG TABS One tablet by mouth daily ASPIRIN [id number] Dorothy Camacho Start: 05-24-2011 take 1 tablet by leslie th once daily ASPIRIN EC 81 MG TBEC One tablet by mouth daily ASPIRIN [id number] Tina Hagen RN folic acid 0.8 mg oral capsu le (20 sources) Start: 10-22-2017 Folic Acid 0.8 mg capsule Active 800 ug PO daily October 22, 2017 1:00am Start: 10-22-2017 take 800 ug by mouth once francine y Folic Acid Active 800 MCG PO daily October 22, 2017 1:00am Start: 11-13-2012 take 1 tablet by mouth once da katie FOLIC ACID TABS (0.8Mg) One tablet by mouth daily FOLIC ACID TABS Parag Stanton MD Start: 10-27-2012 folic acid 0.8 mg oral tablet Dose : 0.8 mg = 1 tab(s), Oral, qDay, # 30 tab(s), 0 Refill(s) Start Date: 10/27/12 Status: Ordered levothyroxine sodium 0.025 mg oral capsule (4 sources) l-Thyroxine Start: 12-24-2024 take 1 capsule by mouth once daily Levothyroxine 25 mcg capsule Active 25 ug PO daily December 24, 2024 1:00am Lopressor 25mg--USE metoprolol tartrate 25 mg oral tablet (1 source) Start: 09-02-2024 Lopressor 25mg --USE metoprolol tartrate 25 mg oral tablet Dose : 25 mg = 1 tab(s), BID, 0 Refill(s) Start Date: 09/02/24 Status: Ordered Completed/Discontinued Medications Medication Drug Class(es) Dates Sig (Normalized) Sig (Original) amiodarone hydrochloride 200 mg oral tablet (20 sources) Antiarrhythmic Start: 01-21-2022 End: 12-17-2022 take 1 tablet by mouth once daily Amiodarone 200 mg tablet Discontinued 200 mg PO DAILY 90 February 04, 2022 9:25am December 17, 2022 10:13am Start: 11-13-2012 End: 11-20-2012 take 1 tablet by mouth once daily AMIODARONE HCL 200 MG TABS One tablet by mouth daily AMIODARONE HCL [id number] Parag Stanton MD amLODIPine 10 mg oral tablet (20 sources) Dihydropyridine Calcium Channel David Start: 10-22-2017 End: 04-07-2025 take 1 tablet by mouth once daily Amlodipine (Norvasc) 10 mg tablet Discontinued 10 mg PO daily July 14, 2023 9:36am March 05, 2024 11:19am Start: 11-29-2015 take 1 tablet by leslie th once daily NORVASC 5 MG TABS One tablet by mouth daily AMLODIPINE BESYLATE [id number] Parag Stanton MD Start: 11-29-2015 take 1 tablet by leslie th once daily NORVASC 10 MG TABS One tablet by mouth daily AMLODIPINE BESYLATE [id number] Parag Stanton MD amoxicillin 875 mg / clavulanate 125 mg oral tablet (3 sources) Penicillin-class Antibacterial Start: 02-24-2025 End: 04-18-2025 Amoxicillin-Pot Clavulanate 875-125 mg tablet Discontinued 1 {tbl} PO TWICE A DAY February 24, 2025 12:00am April 18, 2025 11:22am apixaban 5 mg oral tablet (20 sources) Factor Xa Inhibitor Start: 11-27-2021 End: 01-25-2025 take 1 tablet by mouth twice daily Apixaban (Eliquis) 5 mg tablet Discontinued 5 mg PO TWICE A DAY January 28, 2024 11:52am January 25, 2025 11:09am atorvastatin 10 mg oral tablet (20 sources) HMG-CoA Reductase Inhibitor Start: 05-24-2011 End: 07-22-2024 take 1 tablet by mouth at bedtime Atorvastatin (Lipitor) 10 mg tablet Discontinued 10 mg PO AT BEDTIME July 28, 2023 9:53am July 22, 2024 12:26pm clopidogrel 75 mg oral tablet (20 sources) P2Y12 Platelet Inhibitor Start: 10-22-2017 End: 11-27-2021 take 1 tablet by mouth once daily Clopidogrel (Plavix) 75 mg tablet Discontinued 75 mg PO daily August 14, 2021 1:44pm November 27, 2021 10:59am Start: 11-13-2012 take 1 tablet by leslie th once daily PLAVIX 75 MG TABS One tablet by mouth daily CLOPIDOGREL BISULFATE [id number] Tina Gant PA-C ferrous sulfate 325 mg oral tablet (10 sources) Start: 11-13-2012 End: 08-18-2013 take 1 tablet by mouth twice daily FERROUS SULFATE 325 (65 Fe) MG TABS One tablet by mouth twice daily for 1 month FERROUS SULFATE [id number] Tina Gant PA-C furosemide 20 mg oral tablet (10 sources) Loop Diuretic Start: 11-13-2012 End: 11-20-2012 take 1 tablet by mouth once daily LASIX 20 MG TABS One tablet by mouth daily take for 7 days FUROSEMIDE [id number] Parag Stanton MD hydroCHLOROthiazide 12.5 mg oral tablet (10 sources) Thiazide Diuretic Start: 11-21-2015 End: 11-29-2015 take 1 tablet by mouth once daily HYDROCHLOROTHIAZIDE 12.5 MG TABS One tablet by mouth daily HYDROCHLOROTHIAZIDE [id number] Tina Gant PA-C indapamide 1.25 mg oral tablet (10 sources) Thiazide-like Diuretic Start: 11-10-2022 End: 01-31-2023 take 1 tablet by mouth once daily Indapamide 1.25 mg tablet Discontinued 1.25 mg PO DAILY November 10, 2022 1:00am January 31, 2023 3:11pm irbesartan 150 mg oral tablet (15 sources) Angiotensin 2 Receptor David Start: 05-24-2011 End: 11-20-2012 take 1 tablet by mouth once daily AVAPRO 150 MG TABS One tablet by mouth daily IRBESARTAN [id number] Parag Stanton MD losartan potassium 25 mg oral tablet (20 sources) Angiotensin 2 Receptor David Start: 12-24-2021 End: 09-22-2024 take 1 tablet by mouth once daily Losartan 25 mg tablet Discontinued 25 mg PO DAILY June 28, 2024 9:14am September 22, 2024 10:44am Start: 11-21-2021 End: 12-24-2021 Losartan 50 mg tablet Discon tinued 25 mg PO DAILY November 21, 2021 9:34am December 24, 2021 6:52pm Start: 11-21-2021 End: 12-24-2021 take 25 mg by mouth once daily Losartan Discontinued 2 5 MG PO DAILY November 21, 2021 9:34am December 24, 2021 6:52pm Start: 08-24-2021 End: 11-21-2021 take 1 tablet by mouth once daily Losartan 50 mg tablet Discontinued 50 mg PO DAILY August 24, 2021 12:00am November 21, 2021 9:35am metoprolol tartrate 25 mg oral tablet (20 sources) beta-Adrenergic David Start: 12-17-2022 End: 02-07-2025 take 1 tablet by mouth twice daily Metoprolol Tartrate 25 mg tablet Discontinued 25 mg PO TWICE A DAY 180 February 09, 2024 3:45pm February 07, 2025 1:38pm Start: 04-23-2022 End: 12-17-2022 Metoprolol Tartrate 25 mg ta blet Discontinued 12.5 mg PO TWICE A DAY 180 April 23, 2022 8:58am December 17, 2022 11:17am Start: 04-23-2022 End: 12-17-2022 take 12.5 mg by mouth twice daily Metoprolol Tartrate Discontinued 12.5 MG PO TWICE A DAY 180 April 23, 2022 8:58am December 17, 2022 11:17am Start: 11-27-2021 End: 04-23-2022 take 1 tablet by mouth twice daily Metoprolol Tartrate 25 mg tablet Discontinued 25 mg PO TWICE A DAY 180 January 21, 2022 10:23am April 23, 2022 8:58am Start: 11-21-2021 End: 11-27-2021 take 1 tablet by mouth once daily Metoprolol Succinate 25 mg tablet extended release 24 hr Discontinued 25 mg PO DAILY November 21, 2021 1:00am November 27, 2021 10:58am Start: 10-22-2017 End: 08-24-2021 take 1 tablet by mouth once daily Metoprolol Succinate (Toprol Xl) 50 mg tablet extended release 24 hr Discontinued 50 mg PO daily April 11, 2021 4:16pm August 24, 2021 11:30am Start: 10-14-2012 take 1 tablet by leslie th once daily TOPROL XL 50 MG [id number] One tablet by mouth daily METOPROLOL SUCCINATE [id number] Parag Stanton MD Start: 10-14-2012 take 1 tablet by leslie th once daily TOPROL XL 50 MG [id number] One tablet by mouth daily METOPROLOL SUCCINATE [id number] Parag Stanton MD Start: 10-14-2012 take 1 tablet by leslie th once daily TOPROL XL 100 MG [id number] One tablet by mouth daily METOPROLOL SUCCINATE [id number] Tina Gant PA-C Start: 10-14-2012 take 1 tablet by leslie th once daily TOPROL XL 100 MG [id number] One tablet by mouth daily METOPROLOL SUCCINATE [id number] Tina Gant PA-C Start: 05-24-2011 take 1 tablet by leslie th once daily TOPROL XL 100 MG [id number] One tablet by mouth daily METOPROLOL SUCCINATE [id number] Tina Gant PA-C Start: 05-24-2011 take 1 tablet by leslie th once daily TOPROL XL 100 MG [id number] One tablet by mouth daily METOPROLOL SUCCINATE [id number] Dorothy Camacho MULTIPLE VITAMIN (6 sources) Start: 05-24-2011 End: 11-29-2015 take 1 tablet by mouth once daily MULTIVITAMINS TABS One tablet by mouth daily MULTIPLE VITAMIN [id number] Parag Stanton MD Start: 05-24-2011 take 1 tablet by leslie th once daily MULTIVITAMINS TABS One tablet by mouth daily MULTIPLE VITAMIN [id number] Dorothy Camacho MULTIPLE VITAMIN (4 sources) Start: 05-24-2011 End: 11-29-2015 take 1 tablet by mouth once daily MULTIVITAMINS TABS One tablet by mouth daily MULTIPLE VITAMIN [id number] Parag Stanton MD Start: 05-24-2011 take 1 tablet by leslie th once daily MULTIVITAMINS TABS One tablet by mouth daily MULTIPLE VITAMIN [id number] Dorothy Camacho 24 hr niacin 1000 mg extended release oral tablet (15 sources) Nicotinic Acid Start: 05-24-2011 End: 03-15-2014 take 2 tablets by mouth at bedtime NIASPAN 1000 MG CR-TABS 2 tablets by mouth at bedtime NIACIN (ANTIHYPERLIPIDEMIC) [id number] Parag Stanton MD Start: 05-24-2011 End: 03-15-2014 take 2 tablets by mouth at bedtime NIASPAN 1000 MG CR-TABS 2 tablets by mouth at bedtime NIACIN (ANTIHYPERLIPIDEMIC) [id number] Parag Stanton MD nitroglycerin 0.4 mg sublingual tablet (20 sources) Nitrate Vasodilator Start: 10-22-2017 End: 08-06-2023 Nitroglycerin 0.4 mg tablet, sublingual Discontinued 0.4 mg SL .COMPLEX as needed for pain September 01, 2019 3:03pm July 20, 2020 10:39am 0.4 mg SUBLINGUAL 1 tablet under tongue every 5 min time 3 as needed for chest pain PRN Start: 05-24-2011 NITROSTAT 0.4 MG SUBL 1 tablet under tongue every 5 min up to 3 X NITROGLYCERIN [id number] Parag Stanton MD OMEGA-3 FATTY ACIDS CPDR (6 sources) Start: 05-24-2011 End: 08-18-2013 take 1 tablet by mouth once daily OMEGA 3 CPDR One tablet by mouth daily OMEGA-3 FATTY ACIDS CPDR [id number] Tina Gant PA-C Start: 05-24-2011 take 1 tablet by leslie once daily OMEGA 3 CPDR One tablet by mouth daily OMEGA-3 FATTY ACIDS CPDR [id number] Dorothy Camacho OMEGA-3 FATTY ACIDS CPDR (4 sources) Start: 05-24-2011 take 1 tablet by mouth once daily OMEGA 3 CPDR One tablet by mouth daily OMEGA-3 FATTY ACIDS CPDR [id number] Dorothy Camacho Start: 05-24-2011 End: 08-18-2013 take 1 tablet by mouth once daily OMEGA 3 CPDR One tablet by mouth daily OMEGA-3 FATTY ACIDS CPDR [id number] Tina Gant PA-C omeprazole 20 mg delayed release oral capsule (10 sources) Proton Pump Inhibitor Start: 05-24-2011 End: 03-11-2012 take 2 tablets by mouth once OMEPRAZOLE 20 MG CPDR 2 tablets by mouth daily per moisés Ley from [facility] OMEPRAZOLE [id number] Parag Stanton MD oxyCODONE hydrochloride 5 mg oral capsule (3 sources) Opioid Agonist Start: 02-24-2025 End: 04-18-2025 take 1 capsule by mouth every eight hours as needed for pain Oxycodone 5 mg capsule Discontinued 5 mg PO Q8H as needed for pain 08 19February 24, 2025 April 18, 2025 11:22am predniSONE 20 mg oral tablet (20 sources) Start: 11-10-2022 End: 01-31-2023 take 2 tablets by mouth once daily Prednisone 20 mg tablet Discontinued 40 mg PO DAILY November 10, 2022 1:00am January 31, 2023 3:11pm Start: 11-10-2022 End: 01-31-2023 take 40 mg by mouth once daily Prednisone Discontinued 40 MG PO DAILY November 10, 2022 1:00am January 31, 2023 3:11pm sildenafil 50 mg oral tablet (15 sources) Phosphodiesterase 5 Inhibitor Start: 05-24-2011 End: 11-29-2015 take 1 tablet by mouth once daily as needed VIAGRA 50 MG TABS 1 tablet by mouth daily as needed SILDENAFIL CITRATE [id number] Parag Stanton MD tamsulosin hydrochloride 0.4 mg oral capsule (12 sources) alpha-Adrenergic David Start: 07-10-2018 End: 07-15-2019 take 1 capsule by mouth once daily Tamsulosin 0.4 mg capsule Discontinued 0.4 mg PO DAILY July 10, 2018 12:00am July 15, 2019 10:07am zolpidem tartrate 10 mg oral tablet (10 sources) gamma-Aminobutyric Acid-ergic Agonist Start: 11-20-2012 End: 08-18-2013 take 1 tablet by mouth once daily at bedtime AMBIEN 10 MG TABS One tablet by mouth daily at bedtime ZOLPIDEM TARTRATE [id number] Tina Gant PA-C Problems Active Problems Problem Classification Problem Date Documented Da te Episodic/Chronic Acute and chronic tonsillitis (4 sources) Acute tonsillitis; Translations: [Acute tonsillitis, unspecified] Onset: 02-24-2025 02-24-2025 Episodic Acute myocardial infarction (5 sources) ST elevation (STEMI) myocardial infarction involving other sites; Translations: [ST elevation (STEMI) myocardial infarction involving other sites] Onset: 05-24-2011 05-24-2011 Chronic Cancer of prostate (13 sources) Malignant tumor of prostate; Translations: [Malignant neoplasm of prostate] Onset: 04-08-2025 08-21-2022 Chronic Cardiac dysrhythmias (20 sources) Paroxysmal atrial fibrillation; Translations: [Irregular heart beat] Onset: 10-05-2015 10-05-2015 Chronic Comment on above: [facility] 01/14/22 Chronic obstructive pulmonary disease and bronchiectasis (10 sources) Bronchitis; Translations: [Bronchitis, not specified as acute or chronic] 11-18-2022 Episodic Conduction disorders (12 sources) Right bundle branch block; Translations: [Unspecified right bundle-branch block] 12-03-2021 Chronic Coronary atherosclerosis and other heart disease (20 sources) Old myocardial infarction; Translations: [Coronary arteriosclerosis] Onset: 05-24-2011 Resolved: 04-11-2016 04-11-2016 Chronic Disorders of lipid metabolism (20 sources) Hyperlipidemia; Translations: [Hyperlipidemia, unspecified] Onset: 05-24-2011 05-24-2011 Chronic Essential hypertension (20 sources) Hypertensive disorder; Translations: [Essential hypertension] Onset: 05-24-2011 05-24-2011 Chronic Malaise and fatigue (13 sources) Fatigue; Translations: [Other fatigue] 08-21-2022 Episodic Other lower respiratory disease (12 sources) Dyspnea on exertion; Translations: [Shortness of breath] 08-21-2022 Episodic Other lower respiratory disease (4 sources) Dyspnea; Translations: [Shortness of breath] 04-18-2025 Episodic Other lower respiratory disease (1 source) Shortness of breath; Translations: [Shortness of breath] Onset: 04-18-2025 Episodic Other screening for suspected conditions (not mental disorders or infectious disease) (2 sources) Decreased thyroid stimulating hormone level; Translations: [Other specified abnormal findings of blood chemistry] Onset: 02-03-2025 09-02-2024 Episodic Other upper respiratory infections (10 sources) Viral upper respiratory tract infection; Translations: [Acute upper respiratory infection, unspecified] 11-18-2022 Episodic Thyroid disorders (2 sources) Thyroid nodule; Translations: [Thyrotoxicosis, unspecified without thyrotoxic crisis or storm] Onset: 07-22-2024 09-02-2024 Chronic Unclassified (6 sources) Placement of stent in coronary artery ; Translations: [Presence of coronary angioplasty implant and graft] Onset: 05-24-2011 04-11-2016 Unclassified (2 sources) Long-term drug therapy; Translations: [Other long winder tender (current) drug therapy] Onset: 05-24-2011 05-24-2011 Unclassified (1 source) Drug therapy finding 09-02-2024 Unclassified (3 sources) 2 weeks Past or Other Problems Problem Classification Problem Date Documented Da te Episodic/Chronic Cardiac dysrhythmias (20 sources) Palpitations; Translations: [Palpitations] Onset: 07-05-2024 02-02-2018 Episodic Coronary atherosclerosis and other heart disease (18 sources) Coronary angioplasty status; Translations: [Presence of aortocoronary bypass graft] Onset: 05-24-2011 05-24-2011 Episodic Medical examination/evaluation (6 sources) Encounter for preprocedural cardiovascular examination; Translations: [Encounter for preprocedural cardiovascular examination] Onset: 04-11-2016 Resolved: 04-11-2017 04-11-2017 Episodic Other aftercare (3 sources) Other mcc (current) drug therapy; Translations: [Other mcc (current) drug therapy] Onset: 05-24-2011 05-24-2011 Episodic Other nutritional; endocrine; and metabolic disorders (5 sources) Body mass index (BMI) 27.0-27.9, adult; Translations: [Body mass index (BMI) 27.0-27.9, adult] Onset: 03-15-2014 03-15-2014 Episodic Other screening for suspected conditions (not mental disorders or infectious disease) (10 sources) Cardiovascular stress test abnormal; Translations: [Abnormal result of other cardiovascular function study] Onset: 10-19-2012 Resolved: 04-11-2016 10-19-2012 Episodic Results Test Name Value Interpretation Reference Range Facility Absolute lymphocyte countOrd ered By: Lety Mcdonald on 04-18-2025 Lymphocytes Auto (Unsp spec) [#/Vol] 1.43 10*3/uL 0.83-4.51 [facility] Absolute neutrophil countOrd ered By: Lety Mcdonald on 04-18-2025 Neutrophils (Bld) [#/Vol] 5.1 10*3/uL 2.0-7.7 [facility] Anion gap in Serum or Plasma Ordered By: Lety Mcdonald on 04-18-2025 Anion gap [Moles/Vol] 11 mmol/L 03-31 [facility] Automated lymphocyte count a s percentage of total leukocytesOrdered By: Lety Mcdonald on 04-18-2025 Lymphocytes/100 WBC Auto (Unsp spec) 19.0 % 19-41 [facility] BUN/creatinine ratioOrdered By: Lety Mcdonald on 04-18-2025 Urea nitrogen/Creatinine [Mass ratio] 18.9 mg/mg - [facility] Basic Metabolic Profile (BMP )on 04-18-2025 GAP 11 Normal 03-31 [facility] Comment on above: Performed By: #### L 506.0400, L3400.4700, [id number], [id number] #### [facility] [address] [place], [address] BUN/CRE 18.9 RATIO Normal 09-05 [facility] Comment on above: Performed By: #### L 506.0400, [id number], [id number], [id number] #### [facility] [address] [place], [address] Calcium [Mass/Vol] 9.6 mg/dL Normal 7.6-11.0 [facility] Comment on above: Performed By: #### L 506.0400, [id number], [id number], [id number] #### [facility] [address] [place], [address] Chloride [Moles/Vol] 105 mmol/L Normal 98-108 [facility] Comment on above: Performed By: #### L 506.0400, [id number], [id number], [id number] #### [facility] [address] [place], [address] CO2 [Moles/Vol] 22.7 mmol/L Normal 21.0-32.0 [facility] Comment on above: Performed By: #### L 506.0400, [id number], [id number], [id number] #### [facility] [address] [place], [address] Creatinine [Mass/Vol] 1.13 mg/dL Normal 0.70-1.20 [facility] Comment on above: Performed By: #### L 506.0400, [id number], [id number], [id number] #### [facility] [address] [place], [address] GFR/1.73 sq M.predicted among non-blacks MDRD (S/P/Bld) [Vol rate/Area] 64 mL/min/{1.73_m2} Normal >60 [facility] [facility] Comment on above: Result Comment: mL/m in/1.73m2 CKD-EPI Creatinine Equation (2020) Performed By: #### L 506.0400, L3400.4700, L501.9520, L501.60360 #### [facility] [address] [place], [address] Glucose [Mass/Vol] 92 mg/dL Normal 70-99 [facility] Comment on above: Performed By: #### L 506.0400, L3400.4700, L501.9520, L501.13056 #### [facility] [address] [place], [address] Potassium [Moles/Vol] 4.6 mmol/L Normal 3.3-5.1 [facility] Comment on above: Performed By: #### L 506.0400, L3400.4700, L501.9520, L501.75535 #### [facility] [address] [place], [address] Sodium [Moles/Vol] 139 mmol/L Normal 133-145 [facility] Comment on above: Performed By: #### L 506.0400, L3400.4700, L501.9520, L501.66517 #### [facility] [address] [place], [address] Urea nitrogen [Mass/Vol] 21 mg/dL High 4-19 [facility] Comment on above: Performed By: #### L 506.0400, L3400.4700, L501.9520, L501.24748 #### [facility] [address] [place], [address] Basophil percentageOrdered B y: Lety Mcdonald on 04-18-2025 Basophils/100 WBC (Bld) 0.5 % 0-1 [facility] CBC W/Diff, Automatedon Absolute Lymph 1.43 X10 3/uL Normal 0.83-4.51 [facility] Comment on above: Performed By: #### L 506.0400, L3400.4700, L501.9520, L501.99714 #### [facility] [address] [place], [address] Absolute Neut 5.1 X10 3/uL Normal 2.0-7.7 [facility] Comment on above: Performed By: #### L 506.0400, L3400.4700, L501.9520, L501.96390 #### [facility] [address] [place], [address] Basophils/100 WBC (Bld) 0.5 % Normal 0-1 [facility] Comment on above: Performed By: #### L 506.0400, L3400.4700, L501.9520, L501.84325 #### [facility] [address] [place], [address] Eosinophils/100 WBC (Bld) 1.9 % Normal 0-5 [facility] Comment on above: Performed By: #### L 506.0400, L3400.4700, L501.9520, L501.62751 #### [facility] [address] [place], [address] Erythrocyte distribution width (RBC) [Ratio] 12.9 % Normal 11.6-14.6 [facility] Comment on above: Performed By: #### L 506.0400, L3400.4700, L501.9520, L501.37129 #### [facility] [address] [place], [address] Hematocrit (Bld) [Volume fraction] 36.9 % Low 40-54 [facility] Comment on above: Performed By: #### L 506.0400, L3400.4700, L501.9520, L501.94625 #### [facility] [address] [place], [address] Hemoglobin (Bld) [Mass/Vol] 12.4 g/dL Low 13.0-16.5 [facility] Comment on above: Performed By: #### L 506.0400, L3400.4700, L501.9520, L501.94845 #### [facility] [address] [place], [address] IG% 0.500 Normal 0.0-0.9 [facility] Comment on above: Result Comment: IG% - Immature Granulocytes (promyelocytes, myelocytes and metamyelocytes) > 1% indicates that a LEFT SHIFT is Present. Performed By: #### L 506.0400, L3400.4700, L501.9520, L501.25343 #### [facility] [address] [place], [address] Lymphocytes/100 WBC (Bld) 19.0 % Normal 19-41 [facility] Comment on above: Performed By: #### L 506.0400, L3400.4700, L501.9520, L501.02529 #### [facility] [address] [place], [address] MCH (RBC) [Entitic mass] 32.2 pg High 27.0-32.0 [facility] Comment on above: Performed By: #### L 506.0400, L3400.4700, L501.9520, L501.43839 #### [facility] [address] [place], [address] MCHC (RBC) [Mass/Vol] 33.6 g/dL Normal 32-36 [facility] Comment on above: Performed By: #### L 506.0400, L3400.4700, L501.9520, L501.78220 #### [facility] [address] [place], [address] MCV (RBC) [Entitic vol] 95.8 fL High 80-94 [facility] Comment on above: Performed By: #### L 506.0400, L3400.4700, L501.9520, L501.84423 #### [facility] [address] [place], [address] Monocytes/100 WBC (Bld) 10.4 % High 0-10 [facility] Comment on above: Performed By: #### L 506.0400, L3400.4700, L501.9520, L501.21041 #### [facility] [address] [place], [address] Neutrophils/100 WBC (Bld) 67.7 % Normal 47-70 [facility] Comment on above: Performed By: #### L 506.0400, L3400.4700, L501.9520, L501.72585 #### [facility] [address] [place], [address] Nucleated RBC (Bld) [#/Vol] 0 10*3/uL Normal 0-5 [facility] Comment on above: Performed By: #### L 506.0400, L3400.4700, L501.9520, L501.36497 #### [facility] [address] [place], [address] Platelet mean volume (Bld) [Entitic vol] 10.1 fL Normal 6.2-12.0 [facility] Comment on above: Performed By: #### L 506.0400, L3400.4700, L501.9520, L501.61723 #### [facility] [address] [place], [address] Platelets (Bld) [#/Vol] 209 10*3/uL Normal 150-450 [facility] Comment on above: Performed By: #### L 506.0400, L3400.4700, L501.9520, L501.32955 #### [facility] [address] [place], [address] RBC (Bld) [#/Vol] 3.85 10*6/uL Low 4.6-6.2 [facility] Comment on above: Performed By: #### L 506.0400, L3400.4700, L501.9520, L501.08739 #### [facility] [address] [place], [address] RDW SD 45.4 fl High 35.1-43.9 [facility] Comment on above: Performed By: #### L 506.0400, L3400.4700, L501.9520, L501.27552 #### [facility] [address] [place], [address] WBC (Bld) [#/Vol] 7.5 10*3/uL Normal 4.4-11.0 [facility] Comment on above: Performed By: #### L 506.0400, L3400.4700, L501.9520, L501.14759 #### [facility] [address] [place], [address] Carbon dioxide, total [Moles /volume] in Central venous bloodOrdered By: Lety Mcdonald on 04-18-2025 CO2 [Moles/Vol] 22.7 mmol/L 21.0-32.0 [facility] Cardiology Visit Reporton Cardiology Visit Report [facility] [address] [place], [place] [address] OFFICE VISIT Date of Service: 04/18/25 MR#: [id number] Acct: [id number] Name: LYNETTE GONZALEZ Rep #: [id number] : 1940 Provider: DESTINY rascon Age/Sex: 84/M Location: [facility] Status: Signed HPI HPI History of Present Illness Surgical H P: Yes Details: LYNETTE GONZALEZ, is a 84 M who presents to the office today for a cardiovascular urgent visit. He believes he may be in atrial fibrillation. He is a gentleman with a history of coronary disease status post coronary bypass surgery in 2011. At that time he had a left internal mammary artery to the left anterior descending artery, free right internal mammary artery to the circumflex artery and a saphenous vein graft to posterior descending artery. He had a stress test in 2015 with no evidence of ischemia. He has been doing well other than fatigue. He was noted in November to be in atrial fibrillation. You remember he had wanted to be off the beta-david which was done and soon afterwards he went into atrial fibrillation. A 24-hour Holter monitor was performed which demonstrated persistent atrial fibrillation with an average heart rate of 79 bpm. An echocardiogram performed demonstrated an ejection fraction of 60% with mild left atrial enlargement. The stress test did not demonstrate any evidence of ischemia. He proceeded with cardioversion on 12/25/2021. He returned to atrial fibrillation post cardioversion and was started on amiodarone therapy. He has developed significant tremors at this time though his TSH and chest x-ray have been normal. Patient states that he has been following with an customer service attendant for hypothyroidism. He states that he presented to the emergency room in February of this year for a sore throat. His EKG during his ER visit demonstrated atrial fibrillation. From a cardiac standpoint, the patient is doing well. He denies any palpitations, chest pain, pressure or heaviness. He does acknowledge SOB with exertion, and at rest. He does acknowledge ortho pnea. He denies PND. He does not have bleeding issues; no blood in urine, stool, or nosebleeds. He denies any decrease in energy level, myalgias, or claudication. He does not have edema, or sudden weight gain. He denies lightheadedness, dizziness, syncopal or near syncopal episodes, and headaches. 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 Is patient in pain?: No Allergies No Known Allergies Allergy (Verified 04/18/25 11:29) Medications ???Medication ???Instructions ???Recorded ???Confirmed ???Type aspirin 81 mg tablet,delayed 81 mg PO QDAY 10/22/17 04/18/25 Hi story release (Adult Low Dose Aspirin) folic acid 0.8 mg capsule 800 mcg PO QDAY 10/22/17 04/18/25 History nitroglycerin 0.4 mg sublingual 0.4 mg sublingual Q5-15M PRN pain 08/06/23 04/18/25 Rx tablet #25 tabs atorvastatin 10 mg tablet (Lipitor) 10 mg PO QHS #90 tabs 07/22/24 04/18/25 Rx losartan 25 mg tablet 25 mg PO DAILY #90 tabs 09/22/24 0 04/18/25 Rx levothyroxine 25 mcg capsule 25 mcg PO QDAY 12/24/24 04/18/25 H istory apixaban 5 mg tablet (Eliquis) 5 mg PO BID #180 tabs 01/25/2501/11 Rx metoprolol tartrate 25 mg tablet 25 mg PO BID #180 tabs 02/07/25 Rx amlodipine 10 mg tablet (Norvasc) 10 mg PO QDAY #90 tabs 04/07/25 0 04/18/25 Rx Ejection fraction %: 65 Have you fallen in the past year?: No PFSH Medical History Fatigue Low testosterone level in male Paroxysmal atrial fibrillation Multiple premature ventricular complexes Persistent atrial fibrillation Right bundle branch block (RBBB) New onset atrial fibrillation (11/27/21) Old inferior wall myocardial infarction Essential (primary) hypertension Postoperative atrial fibrillation Gynecomastia Prostate cancer HLD (hyperlipidemia) Atherosclerotic heart disease of [place] coronary artery without angina pectoris Surgical History History of cardioversion (01/14/22) History of coronary artery stent placement (09/19/98) H/O coronary artery bypass surgery (10/22/12) Family History Father Cancer Prostate Cancer Social History Smoking Status: Never smoker second hand exposure: No alcohol intake: current alcohol intake frequency: a few times a week Alcohol type: beer substance use type: does not us (more content not included)... Normal [facility] Chest PA and Lateralon 04-18 Chest PA and Lateral [facility] [address] [place] [address] Chest PA and Lateral MR#: [id number] Acct: [id number] Name: LYNETTE GONZALEZ Rep #: [id number] : 1940 M 84 From: Brittanie Rodriguez PCP: Dr. Cordell Escalante MD Status: REG CLI Study: Chest PA and Lateral Date of Exam: 04/18/25 Exam# [id number] Ordering Dr: Lety Mcdonald SECURITY ESCORT SECURITY ESCORT- C PROCEDURE: CHEST PA AND LATERAL 04/18/2025 REASON FOR EXAM: CARDIOVERSION TECHNIQUE: Frontal and lateral views of the chest. COMPARISON: Chest x-ray studies dated 11/10/2022 and 11/05/2022 FINDINGS: Hardware: Median sternotomy wires and vascular clips are present. Heart: Heart size and configuration are within normal limits. Pulmonary vasculature and hilar structures are unremarkable. Mediastinum: Unremarkable Lungs: Stable pulmonary nodules are seen which appear to represent granulomas and/or summation artifact. No new pulmonary nodules are seen. There is no atelectasis, consolidation, effusion or pneumonic infiltrate. There is no lung contusion or pneumothorax. Bones: No acute osseous abnormality is noted. RAD/Chest PA and Lateral IMPRESSION: No acute cardiopulmonary process is identified radiographically. Reading Location: [facility] CC: SECURITY ESCORT-C Lety Mcdonald; Dr. Cordell Escalante MD Belt Notcher: Signed Normal [facility] Chloride assayOrdered By: Sydni Mdconald on 04-18-2025 Chloride [Moles/Vol] 105 mmol/L 98-108 [facility] Eosinophil percentageOrdered By: Lety Mcdonald on 04-18-2025 Eosinophils/100 WBC (Bld) 1.9 % 0-5 [facility] Erythrocyte distribution wid th ratioOrdered By: Lety Mcdonald on 04-18-2025 Erythrocyte distribution width (RBC) [Ratio] 12.9 % 11.6-14.6 [facility] Erythrocyte distribution wid th standard deviationOrdered By: Lety Mcdonald on 04-18-2025 Erythrocyte distribution width (RBC) [Ratio] 45.4 fl High 35.1-43.9 [facility] Free T3on 04-18-2025 Free T3 [Mass/Vol] 2.7 pg/mL Normal 2.18-3.98 [facility] Comment on above: Order Comment: Order Date: 06/08/24 Order Info: 3051-0 - T3F Order Info: 3016-3 - TSH Order Info: 3024-7 - T4F Performed By: #### L 506.0400, L3400.4700, L501.9520, L501.34817 #### [facility] [address] [place], [address] Free [id number] By: Cordell troy on 04-18-2025 Free T3 [Mass/Vol] 2.7 pg/mL 2.18-3.98 [facility] Glomerular filtration rate ( GFR) estimation/1.73 sq m using serum, plasma, or whole bOrdered By: Lety Mcdonald on 04-18-2025 GFR/1.73 sq M.predicted among non-blacks MDRD (S/P/Bld) [Vol rate/Area] 64 mL/min/{1.73_m2} >60 [facility] Comment on above: mL/min/1.73m2 CKD-EP I Creatinine Equation (2020) Hematocrit Auto (Bld) [Volum e fraction]Ordered By: Lety Mcdonald on 04-18-2025 Hematocrit (Bld) [Volume fraction] 36.9 % Low 40-54 [facility] Hemoglobin measurementOrdere d By: Lety Mcdonald on 04-18-2025 Hemoglobin (Bld) [Mass/Vol] 12.4 g/dL Low 13.0-16.5 [facility] Immature granulocytes/100 WB C Auto (Bld)Ordered By: Lety Mcdonald on 04-18-2025 Immature granulocytes/100 WBC (Bld) 0.500 % 0.0-0.9 [facility] Comment on above: IG% - Immature Granu locytes (promyelocytes, myelocytes and metamyelocytes) > 1% indicates that a LEFT SHIFT is Present. L503.7505on 04-18-2025 Natriuretic peptide B (Bld) [Mass/Vol] 1310 pg/mL Normal <=1800 [facility] Comment on above: Result Comment: Hear t Failure Unlikely: < 300 pg/mL Heart Failure Likely < 50 Years: > 450 pg/mL 50-75 Years: > 900 pg/mL >75 Years: > 1800 pg/mL Performed By: #### L 506.0400, L3400.4700, L501.9520, L501.77317 #### [facility] [address] [place], [address] MCV (mean corpuscular volume ) determinationOrdered By: Lety Mcdonald on 04-18-2025 MCV (RBC) [Entitic vol] 95.8 fL High 80-94 [facility] Mean corpuscular hemoglobin (MCH) determinationOrdered By: Lety Mcdonald on 04-18-2025 MCH (RBC) [Entitic mass] 32.2 pg High 27.0-32.0 [facility] Mean corpuscular hemoglobin concentration (MCHC) determinationOrdered By: Lety Mcdonald on 04-18-2025 MCHC (RBC) [Mass/Vol] 33.6 g/dL 32-36 [facility] Mean platelet volume determi nationOrdered By: Lety Mcdonald on 04-18-2025 Platelet mean volume (Bld) [Entitic vol] 10.1 fL 6.2-12.0 [facility] Monocyte percentageOrdered B y: Lety Mcdonald on 04-18-2025 Monocytes/100 WBC (Bld) 10.4 % High 0-10 [facility] Natriuretic peptide.B prohor ama N-Terminal [Mass/volume] in Serum or PlasmaOrdered By: Lety Mcdonald on 04-18-2025 Natriuretic peptide.B prohormone N-Terminal [Mass/Vol] 1310 pg/mL <1800 [facility] Comment on above: Heart Failure Unlike ly: < 300 pg/mLHeart Failure Likely< 50 Years: > 450 pg/mL50-75 Years: > 900 pg/mL>75 Years: > 1800 pg/mL Neutrophil percentageOrdered By: Lety Mcdonald on 04-18-2025 Neutrophils/100 WBC (Bld) 67.7 % 47-70 [facility] Nucleated red blood cell per centageOrdered By: Lety Mcdonald on 04-18-2025 Nucleated RBC/100 WBC (Bld) [Ratio] 0 % 0-5 [facility] Platelet countOrdered By: Sydni Mcdonald on 04-18-2025 Platelets (Bld) [#/Vol] 209 10*3/uL 150-450 [facility] Potassium measurement (mass/ volume)Ordered By: Lety Mcdonald on 04-18-2025 Potassium (Unsp spec) [Mass/Vol] 4.6 mmol/L 3.3-5.1 [facility] RBC Auto (Bld) [#/Vol]Ordere d By: Lety Mcdonald on 04-18-2025 RBC (Bld) [#/Vol] 3.85 10*6/uL Low 4.6-6.2 [facility] Serum creatinine measurement (mass/volume)Ordered By: Lety Mcdonald on 04-18-2025 Creatinine [Mass/Vol] 1.13 mg/dL 0.70-1.20 [facility] Serum glucose measurement (m ass/volume)Ordered By: Lety Mcdonald on 04-18-2025 Glucose [Mass/Vol] 92 mg/dL 70-99 [facility] Serum or plasma calcium danielle urement (mass/volume)Ordered By: Lety Mcdonald on 04-18-2025 Calcium [Mass/Vol] 9.6 mg/dL 7.6-11.0 [facility] Serum or plasma urea nitroge n measurement (mass/volume)Ordered By: Lety Mcdonald on 04-18-2025 Urea nitrogen [Mass/Vol] 21 mg/dL High 4-19 [facility] Sodium levelOrdered By: Katharina Mcdonald on 04-18-2025 Sodium [Moles/Vol] 139 mmol/L 133-145 [facility] T4 Free Directon 04-18-2025 T4 FREE DIRECT 1.30 ng/dL Normal 0.76-1.46 [facility] Comment on above: Order Comment: Order Date: 06/08/24 Order Info: 3051-0 - T3F Order Info: 3016-3 - TSH Order Info: 3024-7 - T4F Performed By: #### L 506.0400, L3400.4700, L501.9520, L501.68422 #### [facility] [address] [place], [place], [id number] T4 freeOrdered By: Cordell Henderson sydni on 04-18-2025 Free T4 [Mass/Vol] 1.30 ng/dL 0.76-1.46 [facility] TSH DL <= 0.005 mIU/L QnOrde red By: Cordell Hendersonke on 04-18-2025 TSH Qn 4.130 uIU/mL 0.300-4.200 [facility] Thyroid Stim Hormone (TSH)on 04-18-2025 TSH 4.130 uIU/mL Normal 0.300-4.200 [facility] Comment on above: Order Comment: Order Date: 06/08/24 Order Info: 3051-0 - T3F Order Info: 3016-3 - TSH Order Info: 3024-7 - T4F Performed By: #### L 506.0400, L3400.4700, L501.9520, L501.38941 #### [facility] [address] [place], [place], [id number] White blood cell (WBC) count Ordered By: Lety Mcdonald on 04-18-2025 WBC (Bld) [#/Vol] 7.5 10*3/uL 4.4-11.0 [facility] PSA,Total- Diagnosticon 03-18 PSA, DIAGNOSTIC 0.21 ng/mL Normal 0.00-4.00 [facility] Comment on above: Result Comment: This test was performed using the [employer] tPSA method. Measured values of a patient??sample can vary depending on the testing procedure used. PSA values determined on patient samples by different testing procedures cannot be used interchangeably. If there is a change in PSA assays while monitoring therapy, sequential testing should be performed to confirm baseline values. Performed By: #### L 506.0400, L3400.4700, L501.9520, L501.52051 #### [facility] [address] [place], [place], [id number] CBC W/Diff, Automatedon 04-3 PATH REV Reviewed Normal [facility] Comment on above: Result Comment: SEE REPORT IN PATIENT'S EMR AMENDED REPORT 03/16/25 4462 PATH REV previously reported as: March Performed By: #### L 506.0400, L3400.4700, L501.9520, L501.53579 #### [facility] [address] [place], [address] 12 Lead EKGon 02-24-2025 12 Lead EKG [facility] Cardiovascular Services [address] [place] [address] 12 Lead EKG 02/24/252006 MR#: [id number] Acct: [id number] Name: LYNETTE GONZALEZ Rep #: [id number] : 1940 84 From: Tarik Longoria MD Attending Dr: Status: DEP ER Ordering Dr: Jena Garcia DO Date: 02/24/25 Location: ED Sex: M C Admitted: Test Reason : Blood Pressure : */* mmHG Vent. Rate : 121 BPM Atrial Rate : * BPM P-R Int : * ms QRS Dur : 108 ms QT Int : 358 ms P-R-T Axes : * 38 -17 degrees QTcB Int : 508 ms Critical Test Result: STEMI Atrial fibrillation with rapid ventricular response ST T wave abnormality, consider lateral ischemia Baseline artifact Abnormal ECG Confirmed by Tarik Longoria ([id number]), sports editor ASHKAN SCHWAB ([id number]) on 02/28/2025 6:47:10 AM Referred By: CG Confirmed By: Tarik Longoria 02/28/25 0647 Date Tarik Longoria MD CC: Dr. Cordell Escalante MD; Dr. Jena Garcia DO Signed Normal [facility] Absolute lymphocyte countOrd ered By: Jena Garcia on 02-24-2025 Lymphocytes Auto (Unsp spec) [#/Vol] 1.25 10*3/uL 0.83-4.51 [facility] Absolute neutrophil countOrd ered By: Jena Garcia on 02-24-2025 Neutrophils (Bld) [#/Vol] 13.2 10*3/uL High 2.0-7.7 [facility] Anion gap in Serum or Plasma Ordered By: Jena Garcia on 02-24-2025 Anion gap [Moles/Vol] 13 mmol/L 5-15 [facility] Automated lymphocyte count a s percentage of total leukocytesOrdered By: Jena Garcia on 02-24-2025 Lymphocytes/100 WBC Auto (Unsp spec) 7.8 % Low 19-41 [facility] BUN/creatinine ratioOrdered By: Jena Garcia on 02-24-2025 Urea nitrogen/Creatinine [Mass ratio] 16.3 mg/mg 10- [facility] Basophil percentageOrdered B y: Jena Garcia on 02-24-2025 Basophils/100 WBC (Bld) 0.2 % 0-1 [facility] Bilirubin, totalOrdered By: Jena Garcia on 02-24-2025 Bilirubin [Mass/Vol] 0.72 mg/dL 0.00-1.30 [facility] Blood manual differential co mment interpretation (narrative result)Ordered By: Jena Garcia on 02-24-2025 Manual differential comment Ronnie (Bld) [Interp] SCANNED [facility] Comment on above: MONOCYTOSIS NOTED Carbon dioxide, total [Moles /volume] in Central venous bloodOrdered By: Jena Garcia on 02-24-2025 CO2 [Moles/Vol] 21.0 mmol/L 21.0-32.0 [facility] Chloride assayOrdered By: Asher Garcia on 02-24-2025 Chloride [Moles/Vol] 100 mmol/L 98-108 [facility] Comprehensive Metabolic Prof ilon 02-24-2025 Albumin [Mass/Vol] 4.1 g/dL Normal 3.4-4.8 [facility] Comment on above: Performed By: #### L 506.0400, L3400.4700, L501.9520, L501.77767 #### [facility] [address] [place], [place], [id number] Albumin/Globulin [Mass ratio] 1.1 {ratio} Normal 0.9-2.4 [facility] Comment on above: Performed By: #### L 506.0400, L3400.4700, L501.9520, L501.59263 #### [facility] [address] [place], [address] ALK PHOS 69 U/L Normal 40-129 [facility] Comment on above: Performed By: #### L 506.0400, L3400.4700, L501.9520, L501.44586 #### [facility] [address] [place], [address] ALT [Catalytic activity/Vol] 13 U/L Normal <=46 [facility] Comment on above: Performed By: #### L 506.0400, L3400.4700, L501.9520, L501.12477 #### [facility] [address] [place], [address] AST [Catalytic activity/Vol] 15 U/L Normal <=37 [facility] Comment on above: Performed By: #### L 506.0400, L3400.4700, L501.9520, L501.60437 #### [facility] [address] [place], [address] Bilirubin [Mass/Vol] 0.72 mg/dL Normal 0.00-1.30 [facility] Comment on above: Performed By: #### L 506.0400, L3400.4700, L501.9520, L501.56411 #### [facility] [address] [place], [address] BUN/CRE 16.3 RATIO Normal 10-20 [facility] Comment on above: Performed By: #### L 506.0400, L3400.4700, L501.9520, L501.54566 #### [facility] [address] [place], [address] Calcium [Mass/Vol] 9.5 mg/dL Normal 7.6-11.0 [facility] Comment on above: Performed By: #### L 506.0400, L3400.4700, L501.9520, L501.93211 #### [facility] [address] [place], [address] Chloride [Moles/Vol] 100 mmol/L Normal 98-108 [facility] Comment on above: Performed By: #### L 506.0400, L3400.4700, L501.9520, L501.28399 #### [facility] [address] [place], [address] CO2 [Moles/Vol] 21.0 mmol/L Normal 21.0-32.0 [facility] Comment on above: Performed By: #### L 506.0400, L3400.4700, L501.9520, L501.04114 #### [facility] [address] [place], [address] Creatinine [Mass/Vol] 1.06 mg/dL Normal 0.70-1.20 [facility] Comment on above: Performed By: #### L 506.0400, L3400.4700, L501.9520, L501.30320 #### [facility] [address] [place], [address] ECRCL 64.14 ml/min Normal 50-250 [facility] Comment on above: Performed By: #### L 506.0400, L3400.4700, L501.9520, L501.87219 #### [facility] [address] [place], [address] GAP 13 Normal 5-15 [facility] Comment on above: Performed By: #### L 506.0400, L3400.4700, L501.9520, L501.66423 #### [facility] [address] [place], [address] GFR/1.73 sq M.predicted among non-blacks MDRD (S/P/Bld) [Vol rate/Area] 70 mL/min/{1.73_m2} Normal >60 [facility] Comment on above: Result Comment: mL/m in/1.73m2 CKD-EPI Creatinine Equation (2020) Performed By: #### L 506.0400, L3400.4700, L501.9520, L501.03767 #### [facility] [address] [place], [address] Globulin (S) [Mass/Vol] 3.6 g/dL Normal 2.2-4.2 [facility] Comment on above: Performed By: #### L 506.0400, L3400.4700, L501.9520, L501.32431 #### [facility] [address] [place], [address] Glucose [Mass/Vol] 138 mg/dL High 70-99 [facility] Comment on above: Performed By: #### L 506.0400, L3400.4700, L501.9520, L501.53265 #### [facility] [address] [place], [address] Potassium [Moles/Vol] 4.1 mmol/L Normal 3.3-5.1 [facility] Comment on above: Performed By: #### L 506.0400, L3400.4700, L501.9520, L501.37480 #### [facility] [address] [place], [address] Sodium [Moles/Vol] 134 mmol/L Normal 133-145 [facility] Comment on above: Performed By: #### L 506.0400, L3400.4700, L501.9520, L501.95101 #### [facility] [address] [place], [address] T PROT 7.7 g/dL Normal 5.9-8.4 [facility] Comment on above: Performed By: #### L 506.0400, L3400.4700, L501.9520, L501.05966 #### [facility] [address] [place], [address] Urea nitrogen [Mass/Vol] 17 mg/dL Normal 4-19 [facility] Comment on above: Performed By: #### L 506.0400, L3400.4700, L501.9520, L501.60618 #### [facility] [address] [place], [address] Emergency Department Summary on 02-24-2025 Emergency Department Summary [facility] Medical Records Department [address] [place] [address] Emergency Department Summary 02/24/25 MR#: [id number] Acct: [id number] Name: LYNETTE GONZALEZ Rep #: [id number] : 1940 84 From: Jena Garcia DO PCP: Dr. Cordell Escalante MD Status:REG ER Location: ED HPI History of Present Illness Chief Complaint: Sore Throat Informant: patient Narrative Narrative: Patient is an 84-year-old male with history of coronary disease presenting with 3 days of worsening throat pain. His PCP was out of office but he saw another doctor there 2 days ago. He did not have any swabs done. He started on azithromycin. Feels that over the past 24 hours he is having worsening left-sided throat pain and swelling. States is hard to chew and swallow. Is not been eating or drinking much. Denies associated fever. Denies any nausea or vomiting. Denies any associated chest pain or shortness of breath. Denies any cough. States the pain is now rating up into his left ear as well. He has been taking his regular medications. No other complaints or concerns reported at this time. Denies any history of anything like this before. Not taken anything for symptoms prior to arrival. [facility] Medical History Fatigue Low testosterone level in male Paroxysmal atrial fibrillation Multiple premature ventricular complexes Persistent atrial fibrillation Right bundle branch block (RBBB) New onset atrial fibrillation (11/27/21) Old inferior wall myocardial infarction Essential (primary) hypertension Postoperative atrial fibrillation Gynecomastia Prostate cancer HLD (hyperlipidemia) Atherosclerotic heart disease of [place] coronary artery without angina pectoris Home Medications ???Medication ???Instructions ???Recorded ???Last Taken ???Type aspirin 81 mg tablet,delayed 81 mg PO QDAY 10/22/17 Unknown His tory release (Adult Low Dose Aspirin) folic acid 0.8 mg capsule 800 mcg PO QDAY 10/22/17 Unknown H istory nitroglycerin 0.4 mg sublingual 0.4 mg sublingual Q5-15M PRN pain 08/06/23 Unknown Rx tablet #25 tabs amlodipine 10 mg tablet (Norvasc) 10 mg PO QDAY #90 tabs 03/05/24 U nknown Rx atorvastatin 10 mg tablet (Lipitor) 10 mg PO QHS #90 tabs 07/22/24 Unknown Rx losartan 25 mg tablet 25 mg PO DAILY #90 tabs 09/22/24 U nknown Rx levothyroxine 25 mcg capsule 25 mcg PO QDAY 12/24/24 Unknown Hi story apixaban 5 mg tablet (Eliquis) 5 mg PO BID #180 tabs 01/25/25 Unk nown Rx metoprolol tartrate 25 mg tablet 25 mg PO BID #180 tabs 02/07/25 Un known Rx amoxicillin 875 mg-potassium 1 tab PO BID #20 tabs 02/24/25 Unk nown Rx clavulanate 125 mg tablet oxycodone 5 mg capsule 5 mg PO Q8H PRN pain 3 days #10 Unknown Rx caps Allergy/AdvReac Type Severity Reaction Status Date / Time No Known Allergies Allergy Verified 02/24/25 19:55 Family History Father Cancer Prostate Cancer Surgical History History of cardioversion (01/14/22) History of coronary artery stent placement (09/19/98) H/O coronary artery bypass surgery (10/22/12) Social History Smoking Status: Never smoker second hand exposure: No alcohol intake: current alcohol intake frequency: a few times a week Alcohol type: beer substance use type: does not use caffeine: Yes Type: coffee Number of servings: 2 eating out: 1-3 times/week during the past year weight has: remained stable what type of physical activity do you participate in: walking and weight training frequency: 5-6 times per week duration: 45-60 minutes/day seatbelt use: always do you feel safe at home: Yes ROS ROS ED Constitutional Constitutional ED: Reports other Details: Reports generalized malaise ; Denies chills or fever(s) ENT ENT ED: Reports ear pain left and sore throat Cardiovascular Cardiovascular: Denies chest pain or palpitations Respiratory/Chest Respiratory/Chest: Denies cough or dyspnea Gastrointestinal Gastrointestinal: Denies abdominal pain, nausea or vomiting Musculoskeletal Musculoskeletal: Denies arthralgias or myalgias Integumentary Denies rash Neurologic Neurologic: Reports headache(s) Hematologic/Lymphatic Hematologic/Lymphatic: Reports easy bleeding, easy bruising and other Details: On Eliquis EXAM Physical Exam Const Vital Signs: 02/24/25 19:52 02/24/25 20:22 02/24/25 21:00 Temperature 97.2 F L 98.4 F 98.4 F Temperature Source Temporal Oral Oral Pulse Rate 122 H 122 H 106 H Respiratory Rate 17 18 18 Blood Pressure 111/77 162/80 H 143/79 H Blood Pressure Mean 88 107 96 Pulse Ox 99 98 99 Ox (more content not included)... Normal [facility] Eosinophil percentageOrdered By: Jena Garcia on 02-24-2025 Eosinophils/100 WBC (Bld) 0.1 % 0-5 [facility] Erythrocyte distribution wid th (RBC) [Ratio]Ordered By: Jena Garcia on 02-24-2025 Erythrocyte distribution width (RBC) [Entitic vol] 43.8 fL 35.1-43.9 [facility] Erythrocyte distribution wid th ratioOrdered By: Jena Garcia on 02-24-2025 Erythrocyte distribution width (RBC) [Ratio] 12.8 % 11.6-14.6 [facility] Erythrocyte distribution wid th standard deviationOrdered By: Jena Garcia on 02-24-2025 Erythrocyte distribution width (RBC) [Ratio] 43.8 fl 35.1-43.9 [facility] Estimation of creatinine winston aranceOrdered By: Jena Garcia on 02-24-2025 Estimated Creatinine Clearance Calc 64.14 ml/min 50-250 [facility] GFR/1.73 sq M.predicted erasto g non-blacks MDRD (S/P/Bld) [Vol rate/Area]Ordered By: Jena Garcia on 02-24-2025 Estimated GFR (MDRD) Non-Af Amer 70 >60 [facility] Comment on above: mL/min/1.73m2 CKD-EP I Creatinine Equation (2020) Glomerular filtration rate ( GFR) estimation/1.73 sq m using serum, plasma, or whole bOrdered By: Jena Garcia on 02-24-2025 GFR/1.73 sq M.predicted among non-blacks MDRD (S/P/Bld) [Vol rate/Area] 70 mL/min/{1.73_m2} >60 [facility] Comment on above: mL/min/1.73m2 CKD-EP I Creatinine Equation (2020) Hematocrit Auto (Bld) [Volum e fraction]Ordered By: Jena Garcia on 02-24-2025 Hematocrit (Bld) [Volume fraction] 37.2 % Low 40-54 [facility] Hemoglobin measurementOrdere d By: Jena Garcia on 02-24-2025 Hemoglobin (Bld) [Mass/Vol] 12.9 g/dL Low 13.0-16.5 [facility] Immature granulocytes/100 WB C Auto (Bld)Ordered By: Jena Garcia on 02-24-2025 Immature granulocytes/100 WBC (Bld) 0.600 % 0.0-0.9 [facility] Comment on above: IG% - Immature Granu locytes (promyelocytes, myelocytes and metamyelocytes) > 1% indicates that a LEFT SHIFT is Present. Laboratory - Chemistry and C hemistry - challengeOrdered By: Jena Garcia on 02-24-2025 AST [Catalytic activity/Vol] 15 U/L <38 [facility] Lactic Acidon 02-24-2025 Lactate [Moles/Vol] 1.0 mmol/L Normal 0.0-2.0 [facility] Comment on above: Order Comment: Order Date: 06/08/24 Order Info: 3051-0 - T3F Order Info: 3016-3 - TSH Order Info: 3024-7 - T4F Performed By: #### L 506.0400, L3400.4700, L501.9520, L501.07453 #### [facility] [address] [place], [place], [address] Lactic acid measurementOrder ed By: Jena Garcia on 02-24-2025 Lactate [Moles/Vol] 1.0 mmol/L 0.0-2.0 [facility] Lymphocytes Auto (Unsp spec) [#/Vol]Ordered By: Jena Garcia on 02-24-2025 Lymphocytes (Bld) [#/Vol] 1.25 10*3/uL 0.83-4.51 [facility] Lymphocytes/100 WBC Auto (Un sp spec)Ordered By: Jena Garcia on 02-24-2025 Lymphocytes/100 WBC (Bld) 7.8 % Low 19-41 [facility] M100.677on 02-24-2025 M100.677 Negative Normal [facility] Comment on above: Performed By: #### L 506.0400, L3400.4700, L501.9520, L501.58113 #### [facility] [address] [place], [place], [id number] MCV (mean corpuscular volume ) determinationOrdered By: Jena Garcia on 02-24-2025 MCV (RBC) [Entitic vol] 92.8 fL 80-94 [facility] Manual differential comment Ronnie (Bld) [Interp]Ordered By: Jena Garcia on 02-24-2025 Differential Comment SCANNED [facility] Comment on above: MONOCYTOSIS NOTED Mean corpuscular hemoglobin (MCH) determinationOrdered By: Jena Garcia on 02-24-2025 MCH (RBC) [Entitic mass] 32.2 pg High 27.0-32.0 [facility] Mean corpuscular hemoglobin concentration (MCHC) determinationOrdered By: Jena Garcia on 02-24-2025 MCHC (RBC) [Mass/Vol] 34.7 g/dL 32-36 [facility] Mean platelet volume determi nationOrdered By: Jena Garcia on 02-24-2025 Platelet mean volume (Bld) [Entitic vol] 10.3 fL 6.2-12.0 [facility] Monocyte percentageOrdered B y: Jena Garcia on 02-24-2025 Monocytes/100 WBC (Bld) 9.4 % 0-10 [facility] Neutrophil percentageOrdered By: Jena Garcia on 02-24-2025 Neutrophils/100 WBC (Bld) 81.9 % High 47-70 [facility] Nucleated red blood cell per centageOrdered By: Jena Garcia on 02-24-2025 Nucleated RBC/100 WBC (Bld) [Ratio] 0 % 0-5 [facility] Pathologist review Ronnie (Unsp spec) [Interp]Ordered By: Jena Garcia on 02-24-2025 Differential Pathologist's Review [facility] Platelet countOrdered By: Asher Garcia on 02-24-2025 Platelets (Bld) [#/Vol] 183 10*3/uL 150-450 [facility] Potassium (Unsp spec) [Mass/ Vol]Ordered By: Jena Garcia on 02-24-2025 Potassium [Moles/Vol] 4.1 mmol/L 3.3-5.1 [facility] Potassium measurement (mass/ volume)Ordered By: Jena Garcia on 02-24-2025 Potassium (Unsp spec) [Mass/Vol] 4.1 mmol/L 3.3-5.1 [facility] RBC Auto (Bld) [#/Vol]Ordere d By: Jena Garcia on 02-24-2025 RBC (Bld) [#/Vol] 4.01 10*6/uL Low 4.6-6.2 [facility] Review by pathologistOrdered By: Jena Garcia on 02-24-2025 Pathologist review Ronnie (Unsp spec) [Interp] Reviewed [facility] Comment on above: Previous reported re sult: Linda so Edited by: NURYS on 03/16/25:1332SEE REPORT IN PATIENT'S EMR AMENDED REPORT 03/16/25 133 PATH REV previously reported as: Linda so S. pyogenes rRNA Probe Ql (T hroat)Ordered By: Jena Garcia on 02-24-2025 Streptococcus pyogenes (PCR) [facility] Serum creatinine measurement (mass/volume)Ordered By: Jena Garcia on 02-24-2025 Creatinine [Mass/Vol] 1.06 mg/dL 0.70-1.20 [facility] Serum globulin measurementOr dered By: Jena Garcia on 02-24-2025 Globulin (S) [Mass/Vol] 3.6 g/dL 2.2-4.2 [facility] Serum glucose measurement (m ass/volume)Ordered By: Jena Garcia on 02-24-2025 Glucose [Mass/Vol] 138 mg/dL High 70-99 [facility] Serum or plasma alanine dutta otransferase (ALT) measurementOrdered By: Jena Garcia on 02-24-2025 ALT [Catalytic activity/Vol] 13 U/L <47 [facility] Serum or plasma albumin danielle urement (mass/volume)Ordered By: Jena Garcia on 02-24-2025 Albumin [Mass/Vol] 4.1 g/dL 3.4-4.8 [facility] Serum or plasma albumin/glob ulin mass ratioOrdered By: Jena Garcia on 02-24-2025 Albumin/Globulin [Mass ratio] 1.1 {ratio} 0.9-2.4 [facility] Serum or plasma alkaline kushal sphatase measurementOrdered By: Jena Garcia on 02-24-2025 ALP [Catalytic activity/Vol] 69 U/L 40-129 [facility] Serum or plasma calcium danielle urement (mass/volume)Ordered By: Jena Garcia on 02-24-2025 Calcium [Mass/Vol] 9.5 mg/dL 7.6-11.0 [facility] Serum or plasma urea nitroge n measurement (mass/volume)Ordered By: Jena Garcia on 02-24-2025 Urea nitrogen [Mass/Vol] 17 mg/dL 03-05 [facility] Sodium levelOrdered By: Lisa Garcia on 02-24-2025 Sodium [Moles/Vol] 134 mmol/L 133-145 [facility] Soft Tissue Neck WITH Contra ston 02-24-2025 Soft Tissue Neck WITH Contrast [facility] Imaging Services [address] [place] [address] Soft Tissue Neck WITH Contrast MR#: [id number] Acct: [id number] Name: LYNETTE GONZALEZ Rep #: [id number] : 1940 M 84 From: Lisa Willis nd, MD PCP: Dr. 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 CONTRAST: Isovue 370 VOLUME: 100 mL One or more dose reduction techniques were used (e.g., Automated exposure control, adjustment of the mA and/or kV according to patient size, use of iterative reconstruction technique). RADIATION DOSE SUMMARY: CTDlvol: 27 mGy DLP: 624 mGycm COMPARISON: None. FINDINGS: Visualization of the floor of mouth is slightly limited by streak artifact from adjacent dental amalgam. Airway: The major airways are patent. There is enlargement of the left palatine tonsil with focal hypodensity centered within the left piriform fossa, measuring 3.8 x 2.9 cm (series 2, image 72). No area of rim enhancing fluid collection or edema. Salivary glands: Unremarkable. Lymph nodes: No cervical lymphadenopathy. Thyroid: Unremarkable. Vasculature: Mild calcific plaque of the aortic arch, aortic arch vessels, and bilateral carotid arteries. Orbits: Unremarkable at visualized levels. Paranasal sinuses and mastoids: Retention cyst or polyp within the right maxillary sinus. The mastoid air cells and visualized paranasal sinuses are otherwise well-aerated. Lung apices: Mild biapical pleuro-parenchymal scarring. Upper mediastinum: Prior median sternotomy. Bones: Multilevel degenerative changes of the spine. Other: Prior dental restorations. CT/Soft Tissue Neck WITH Contrast IMPRESSION: 1. Enlargement of the left palatine tonsil, most compatible with uncomplicated tonsillitis, however visualization is limited by streak artifact. Tonsillar neoplasm is an additional consideration, however felt less likely given patient's symptoms and presentation. Follow-up CT neck in 2-3 weeks is recommended to evaluate for resolution after appropriate antibiotic treatment. 2. No abscess or cervical lymphadenopathy. Findings were discussed by Dr. Mckeon with Jena Garcia via telephone at 9:35 p.m. on 02/24/2025. Reading Location: [id number] CC: Dr. Cordell Escalante MD; Dr. Jena Garcia, DO Belt Notcher: Signed Normal [facility] Streptococcus pyogenes rRNA detection in throat by DNA probeOrdered By: Jena Garcia on 02-24-2025 S. pyogenes rRNA Probe Ql (Throat) [facility] Total proteinOrdered By: Vanessa Garcia on 02-24-2025 Protein [Mass/Vol] 7.7 g/dL 5.9-8.4 [facility] White blood cell (WBC) count Ordered By: Jena Garcia on 02-24-2025 WBC (Bld) [#/Vol] 16.1 10*3/uL High 4.4-11.0 [facility] Anion gap in Serum or Plasma Ordered By: Cheri Murcia on 01-24-2025 Anion gap [Moles/Vol] 11 mmol/L 5-15 [facility] BUN/creatinine ratioOrdered By: Cheri Murcia on 01-24-2025 Urea nitrogen/Creatinine [Mass ratio] 19.2 mg/mg 10-20 [facility] Bilirubin, totalOrdered By: Cheri Murcia on 01-24-2025 Bilirubin [Mass/Vol] 0.56 mg/dL 0.00-1.30 [facility] Carbon dioxide, total [Moles /volume] in Central venous bloodOrdered By: Cheri Murcia on 01-24-2025 CO2 [Moles/Vol] 23.5 mmol/L 21.0-32.0 [facility] Chloride assayOrdered By: Yovanny Murcia on 01-24-2025 Chloride [Moles/Vol] 105 mmol/L 98-108 [facility] Comprehensive Metabolic Prof ilon 01-24-2025 Albumin [Mass/Vol] 4.0 g/dL Normal 3.4-4.8 [facility] Comment on above: Performed By: #### L 506.0400, L3400.4700, L501.9520, L501.89641 #### [facility] [address] [place], [address] Albumin/Globulin [Mass ratio] 1.3 {ratio} Normal 0.9-2.4 [facility] Comment on above: Performed By: #### L 506.0400, L3400.4700, L501.9520, L501.67748 #### [facility] [address] [place], [address] ALK PHOS 64 U/L Normal 40-129 [facility] Comment on above: Performed By: #### L 506.0400, L3400.4700, L501.9520, L501.24176 #### [facility] [address] [place], [address] ALT [Catalytic activity/Vol] 20 U/L Normal <=46 [facility] Comment on above: Performed By: #### L 506.0400, L3400.4700, L501.9520, L501.55596 #### [facility] [address] [place], [address] AST [Catalytic activity/Vol] 20 U/L Normal <=37 [facility] Comment on above: Performed By: #### L 506.0400, L3400.4700, L501.9520, L501.81632 #### [facility] [address] [place], [address] Bilirubin [Mass/Vol] 0.56 mg/dL Normal 0.00-1.30 [facility] Comment on above: Performed By: #### L 506.0400, L3400.4700, L501.9520, L501.49748 #### [facility] [address] [place], [address] BUN/CRE 19.2 RATIO Normal 10-20 [facility] Comment on above: Performed By: #### L 506.0400, L3400.4700, L501.9520, L501.77432 #### [facility] [address] [place], [address] Calcium [Mass/Vol] 9.4 mg/dL Normal 7.6-11.0 [facility] Comment on above: Performed By: #### L 506.0400, L3400.4700, L501.9520, L501.26586 #### [facility] [address] [place], [address] Chloride [Moles/Vol] 105 mmol/L Normal 98-108 [facility] Comment on above: Performed By: #### L 506.0400, L3400.4700, L501.9520, L501.51764 #### [facility] [address] [place], [address] CO2 [Moles/Vol] 23.5 mmol/L Normal 21.0-32.0 [facility] Comment on above: Performed By: #### L 506.0400, L3400.4700, L501.9520, L501.27505 #### [facility] [address] [place], [address] Creatinine [Mass/Vol] 1.23 mg/dL High 0.70-1.20 [facility] Comment on above: Performed By: #### L 506.0400, L3400.4700, L501.9520, L501.67290 #### [facility] [address] [place], [address] GAP 11 Normal 5-15 [facility] Comment on above: Performed By: #### L 506.0400, L3400.4700, L501.9520, L501.64510 #### [facility] [address] [place], [address] GFR/1.73 sq M.predicted among non-blacks MDRD (S/P/Bld) [Vol rate/Area] 58 mL/min/{1.73_m2} Low >60 [facility] Comment on above: Result Comment: mL/m in/1.73m2 CKD-EPI Creatinine Equation (2020) Performed By: #### L 506.0400, L3400.4700, L501.9520, L501.07649 #### [facility] [address] [place], [address] Globulin (S) [Mass/Vol] 3.1 g/dL Normal 2.2-4.2 [facility] Comment on above: Performed By: #### L 506.0400, L3400.4700, L501.9520, L501.18359 #### [facility] [address] [place], [address] Glucose [Mass/Vol] 108 mg/dL High 70-99 [facility] Comment on above: Performed By: #### L 506.0400, L3400.4700, L501.9520, L501.29064 #### [facility] [address] [place], [address] Potassium [Moles/Vol] 4.3 mmol/L Normal 3.3-5.1 [facility] Comment on above: Result Comment: Hemo lysis present, Results??could be affected. ?? Performed By: #### L 506.0400, L3400.4700, L501.9520, L501.15683 #### [facility] [address] [place], [address] Sodium [Moles/Vol] 139 mmol/L Normal 133-145 [facility] Comment on above: Performed By: #### L 506.0400, L3400.4700, L501.9520, L501.82628 #### [facility] [address] [place], [address] T PROT 7.1 g/dL Normal 5.9-8.4 [facility] Comment on above: Performed By: #### L 506.0400, L3400.4700, L501.9520, L501.19666 #### [facility] [address] [place], [address] Urea nitrogen [Mass/Vol] 24 mg/dL High 4-19 [facility] Comment on above: Performed By: #### L 506.0400, L3400.4700, L501.9520, L501.27552 #### [facility] [address] [place], [address] Free T3on 01-24-2025 Free T3 [Mass/Vol] 3.0 pg/mL Normal 2.18-3.98 [facility] Comment on above: Performed By: #### L 506.0400, L3400.4700, L501.9520, L501.46491 #### [facility] [address] [place], [address] Free B2Fcyvzxt By: Cheri lorenzo on 01-24-2025 Free T3 [Mass/Vol] 3.0 pg/mL 2.18-3.98 [facility] Free Triiodothyronine (T3) pg/dL 3.0 pg/mL 2.18-3.98 [facility] GFR/1.73 sq M.predicted erasto g non-blacks MDRD (S/P/Bld) [Vol rate/Area]Ordered By: Cheri Murcia on 01-24-2025 Estimated GFR (MDRD) Non-Af Amer 58 Low >60 [facility] Comment on above: mL/min/1.73m2 CKD-EP I Creatinine Equation (2020) Glomerular filtration rate ( GFR) estimation/1.73 sq m using serum, plasma, or whole bOrdered By: Cheri Murcia on 01-24-2025 GFR/1.73 sq M.predicted among non-blacks MDRD (S/P/Bld) [Vol rate/Area] 58 mL/min/{1.73_m2} Low >60 [facility] Comment on above: mL/min/1.73m2 CKD-EP I Creatinine Equation (2020) L506.1001on 01-24-2025 Vitamin D 25-OH 16.6 ng/mL Low 30-100 [facility] Comment on above: Result Comment: Destinee min D Status Deficiency: <20 ng/mL (50nmol/L) Insufficiency: 20-30 ng/mL (50-75 nmol/L) Sufficiency: 30-100 ng/mL (75-250 nmol/L) Toxicity: >100 ng/mL (>250 nmol/L) Performed By: #### L 506.0400, L3400.4700, L501.9520, L501.66020 #### [facility] [place], [address] Laboratory - Chemistry and C hemistry - challengeOrdered By: Cheri Murcia on 01-24-2025 AST [Catalytic activity/Vol] 20 U/L <38 [facility] Potassium (Unsp spec) [Mass/ Vol]Ordered By: Cheri Murcia on 01-24-2025 Potassium [Moles/Vol] 4.3 mmol/L 3.3-5.1 [facility] Comment on above: Hemolysis present, R esults could be affected. Potassium measurement (mass/ volume)Ordered By: Cheri Murcia on 01-24-2025 Potassium (Unsp spec) [Mass/Vol] 4.3 mmol/L 3.3-5.1 [facility] Comment on above: Hemolysis present, R esults could be affected. Serum creatinine measurement (mass/volume)Ordered By: Cheri Murcia on 01-24-2025 Creatinine [Mass/Vol] 1.23 mg/dL High 0.70-1.20 [facility] Serum globulin measurementOr dered By: Cheri Murcia on 01-24-2025 Globulin (S) [Mass/Vol] 3.1 g/dL 2.2-4.2 [facility] Serum glucose measurement (m ass/volume)Ordered By: Cheri Murcia on 01-24-2025 Glucose [Mass/Vol] 108 mg/dL High 70-99 [facility] Serum or plasma alanine dutta otransferase (ALT) measurementOrdered By: Cheri Murcia on 01-24-2025 ALT [Catalytic activity/Vol] 20 U/L <47 [facility] Serum or plasma albumin danielle urement (mass/volume)Ordered By: Cheri Murcia on 01-24-2025 Albumin [Mass/Vol] 4.0 g/dL 3.4-4.8 [facility] Serum or plasma albumin/glob ulin mass ratioOrdered By: Cheri Murcia on 01-24-2025 Albumin/Globulin [Mass ratio] 1.3 {ratio} 0.9-2.4 [facility] Serum or plasma alkaline kushal sphatase measurementOrdered By: Cheri Murcia on 01-24-2025 ALP [Catalytic activity/Vol] 64 U/L 40-129 [facility] Serum or plasma calcium danielle urement (mass/volume)Ordered By: Cheri Murcia on 01-24-2025 Calcium [Mass/Vol] 9.4 mg/dL 7.6-11.0 [facility] Serum or plasma urea nitroge n measurement (mass/volume)Ordered By: Cheri Murcia on 01-24-2025 Urea nitrogen [Mass/Vol] 24 mg/dL High 4-19 [facility] Sodium levelOrdered By: Hudson Murcia on 01-24-2025 Sodium [Moles/Vol] 139 mmol/L 133-145 [facility] TSH DL <= 0.005 mIU/L QnOrde red By: Cheri Murcia on 01-24-2025 Thyroid Stimulating Hormone (TSH) 6.710 uIU/mL High 0.300-4.200 [facility] TSH Qn 6.710 uIU/mL High 0.300-4.200 [facility] Thyroid Stim Hormone (TSH)on 01-24-2025 TSH 6.710 uIU/mL High 0.300-4.200 [facility] Comment on above: Performed By: #### L 506.0400, L3400.4700, L501.9520, L501.10168 #### [facility] [address] [place], [place], [address] Total proteinOrdered By: Julien Murcia on 01-24-2025 Protein [Mass/Vol] 7.1 g/dL 5.9-8.4 [facility] Vitamin D, 25-hydroxyOrdered By: Cheri Murcia on 01-24-2025 Vitamin D 25-Hydroxy 16.6 ng/mL Low 30-100 [facility] Comment on above: Vitamin D StatusDefi ciency: <20 ng/mL (50nmol/L)Insufficiency: 20-30 ng/mL (50-75 nmol/L)Sufficiency: 30-100 ng/mL (75-250 nmol/L)Toxicity: >100 ng/mL (>250 nmol/L) Bilirubin directOrdered By: Rom Richardson on 12-24-2024 Bilirubin.direct [Mass/Vol] 0.13 mg/dL 0.00-0.30 [facility] Bilirubin, totalOrdered By: Rom Richardson on 12-24-2024 Bilirubin [Mass/Vol] 0.60 mg/dL 0.20-1.00 [facility] Comment on above: For patients on eltr ombopag therapy, use of Dimension Tupman TBIL is not recommended. Cardiology Visit Reporton Cardiology Visit Report [facility] [address] [place] [address] OFFICE VISIT Date of Service: 12/24/24 MR#: [id number] Acct: [id number] Name: LYNETTE GONZALEZ Rep #: [id number] : 1940 Provider: DESTINY muniz Age/Sex: 84/M Location: [facility] Status: Signed HPI HPI History of Present Illness Details: LYNETTE GONZALEZ, is a 84 M who presents to the office today for a follow-up visit. He is a gentleman with a history of coronary disease status post coronary bypass surgery in 2011. At that time he had a left internal mammary artery to the left anterior descending artery, free right internal mammary artery to the circumflex artery and a saphenous vein graft to posterior descending artery. He had a stress test in 2015 with no evidence of ischemia. He has been doing well other than fatigue. He was noted in November to be in atrial fibrillation. You remember he had wanted to be off the beta- david which was done and soon afterwards he went into atrial fibrillation. A 24-hour Holter monitor was performed which demonstrated persistent atrial fibrillation with an average heart rate of 79 bpm. An echocardiogram performed demonstrated an ejection fraction of 60% with mild left atrial enlargement. The stress test did not demonstrate any evidence of ischemia. He proceeded with cardioversion on 12/25/2021. He returned to atrial fibrillation post cardioversion and was started on amiodarone therapy. He has developed significant tremors at this time though his TSH and chest x-ray have been normal. He denies chest, arm, jaw, or neck discomfort. He denies palpitations. He denies bilateral lower extremity edema. He denies claudication. He states shortness of breath with activity such as going up stairs. This improves with rest. This does not impact his ADls. He denies shortness of breath at rest, orthopnea, or PND. He denies chronic cough. He denies significant, sudden weight gain. He denies lightheadedness, dizziness, near-syncope, or syncope. He denies blood in urine, blood in stool, or epistaxis. He denies fever with chills. He denies myalgia. He states his fatigue is improved since thyroid work-up. His exercise level has remained stable. He states sleep issues that helps with Benadryl. Intake Vital Signs 03/05/24 11:00 12/24/24 10:59 Height 6 ft 6 ft Weight: 215 lb BMI 29.1 BP 127/87 H Blood Pressure Location Lt brachial Position Sitting Respiration 18 Pulse 71 Pulse Source Monitor Pulse Oximetry (%) 98 Intake Visit Reasons: 9 m fu / SCHEDULE W [employer] Required: No Is patient in pain?: No Allergies No Known Allergies Allergy (Verified 12/24/24 10:59) Medications ???Medication ???Instructions ???Recorded ???Confirmed ???Type aspirin 81 mg tablet,delayed 81 mg PO QDAY 10/22/17 12/24/24 Hi story release (Adult Low Dose Aspirin) folic acid 0.8 mg capsule 800 mcg PO QDAY 10/22/17 12/24/24 History nitroglycerin 0.4 mg sublingual 0.4 mg sublingual Q5-15M PRN pain 08/06/23 12/24/24 Rx tablet #25 tabs apixaban 5 mg tablet (Eliquis) 5 mg PO BID #180 tabs 01/28/2406/10 Rx metoprolol tartrate 25 mg tablet 25 mg PO BID #180 tabs 02/09/24 Rx amlodipine 10 mg tablet (Norvasc) 10 mg PO QDAY #90 tabs 03/05/24 0 12/24/24 Rx atorvastatin 10 mg tablet (Lipitor) 10 mg PO QHS #90 tabs 07/22/24 12/24/24 Rx losartan 25 mg tablet 25 mg PO DAILY #90 tabs 09/22/24 0 12/24/24 Rx levothyroxine 25 mcg capsule 25 mcg PO QDAY 12/24/24 12/24/24 H istory Have you fallen in the past year?: No PFSH Medical History (Updated 05/27/24 @ 14:57 by Rom Richardson SECURITY ESCORT, SECURITY ESCORT-C) Fatigue Low testosterone level in male Paroxysmal atrial fibrillation Multiple premature ventricular complexes Persistent atrial fibrillation Right bundle branch block (RBBB) New onset atrial fibrillation (11/27/21) Old inferior wall myocardial infarction Essential (primary) hypertension Postoperative atrial fibrillation Gynecomastia Prostate cancer HLD (hyperlipidemia) Atherosclerotic heart disease of [place] coronary artery without angina pectoris Surgical History History of cardioversion (01/14/22) History of coronary artery stent placement (09/19/98) 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 Normal [facility] Diagnostic total prostate sp ecific antigen (PSA) measurementOrdered By: Zuleyka Ojeda on 12-24-2024 Prostate Specific Antigen Total < 0.01 ng/mL 0.0-4.0 [facility] Comment on above: This test was perfor med using the TPSA assay method for theFitfully chemistry system. Values obtained with differentassay methods cannot be used interchangably.When changing PSA assays in the course of monitoring apatient, additional sequential testing should be carriedout to confirm baseline values. High density lipoprotein (HD L) measurementOrdered By: Rom Richardson on 12-24-2024 Cholesterol in HDL [Mass/Vol] 42 mg/dL >40 [facility] Comment on above: The drugs N-Acetylcy steine and Metamizole may falsely depress this assay. Reference Range HDL <40 mg/dL Low HDL Cholesterol HDL >or= 60 mg/dL High HDL Cholesterol Laboratory - Chemistry and C hemistry - challengeOrdered By: Rom Richardson on 12-24-2024 AST [Catalytic activity/Vol] 17 U/L 15-37 [facility] Lipid Profileon 12-24-2024 Cholesterol [Mass/Vol] 126 mg/dL Normal 200 [facility] Comment on above: Result Comment: <200 mg/dL Desirable 200-240 mg/dL Borderline >240 mg/dL High Risk Performed By: #### L 506.0400, L3400.4700, L501.9520, L501.57815 #### [facility] [address] [place], [address] Cholesterol in HDL [Mass/Vol] 42 mg/dL Normal [facility] Comment on above: Result Comment: The drugs N-Acetylcysteine and Metamizole may falsely depress this assay. Reference Range HDL <40 mg/dL Low HDL Cholesterol HDL >or= 60 mg/dL High HDL Cholesterol Performed By: #### L 506.0400, L3400.4700, L501.9520, L501.96589 #### [facility] [address] [place], [address] Cholesterol in LDL [Mass/Vol] 55 mg/dL Normal 0-130 [facility] Comment on above: Performed By: #### L 506.0400, L3400.4700, L501.9520, L501.25892 #### [facility] [address] [place], [address] Cholesterol in VLDL [Mass/Vol] 29 mg/dL Normal 5-40 [facility] Comment on above: Performed By: #### L 506.0400, L3400.4700, L501.9520, L501.10118 #### [facility] [address] [place], [address] Triglyceride [Mass/Vol] 147 mg/dL Normal [facility] Comment on above: Result Comment: The drugs N-Acetylcysteine and Metamizole may falsely depress this assay. Serum Triglycerides Reference Interval Normal <150 mg/dL Borderline high 150 - 199 mg/dL High 200 - 499 mg/dL Very High > or = 500 mg/dL Performed By: #### L 506.0400, L3400.4700, L501.9520, L501.03130 #### [facility] [address] [place], [address] Liver Profileon 12-24-2024 Albumin [Mass/Vol] 3.5 g/dL Normal 3.2-5.0 [facility] Comment on above: Performed By: #### L 506.0400, L3400.4700, L501.9520, L501.81122 #### [facility] [address] [place], [address] ALK P 63 U/L Normal 45-117 [facility] Comment on above: Performed By: #### L 506.0400, L3400.4700, L501.9520, L501.27413 #### [facility] [address] [place], [address] ALT [Catalytic activity/Vol] 29 U/L Normal 16-61 [facility] Comment on above: Performed By: #### L 506.0400, L3400.4700, L501.9520, L501.23722 #### [facility] [address] [place], [address] AST [Catalytic activity/Vol] 17 U/L Normal 15-37 [facility] Comment on above: Performed By: #### L 506.0400, L3400.4700, L501.9520, L501.29950 #### [facility] [address] [place], [address] Bilirubin [Mass/Vol] 0.60 mg/dL Normal 0.20-1.00 [facility] Comment on above: Result Comment: For patients on eltrombopag therapy, use of Dimension Tupman TBIL is not recommended. Performed By: #### L 506.0400, L3400.4700, L501.9520, L501.32307 #### [facility] [address] [place], [address] Bilirubin.direct [Mass/Vol] 0.13 mg/dL Normal 0.00-0.30 [facility] Comment on above: Performed By: #### L 506.0400, L3400.4700, L501.9520, L501.22720 #### [facility] [address] [place], [address] Globulin (S) [Mass/Vol] 4.0 g/dL Normal 2.2-4.2 [facility] Comment on above: Performed By: #### L 506.0400, L3400.4700, L501.9520, L501.29569 #### [facility] [address] [place], [address] T PROT 7.5 g/dL Normal 6.4-8.2 [facility] Comment on above: Performed By: #### L 506.0400, L3400.4700, L501.9520, L501.39165 #### [facility] [address] [place], [address] Low density lipoprotein (LDL ) cholesterol measurementOrdered By: Rom Richardson on 12-24-2024 Cholesterol in LDL [Mass/Vol] 55 mg/dL 0-130 [facility] PSA,Total- Diagnosticon 02-0 PSA, DIAGNOSTIC < 0.01 Normal 0.0-4.0 [facility] Comment on above: Result Comment: This test was performed using the TPSA assay method for the Fitfully chemistry system. Values obtained with different assay methods cannot be used interchangably. When changing PSA assays in the course of monitoring a patient, additional sequential testing should be carried out to confirm baseline values. Performed By: #### L 506.0400, L3400.4700, L501.9520, L501.55102 #### [facility] [address] [place], [address] Serum globulin measurementOr dered By: Rom Richardson on 12-24-2024 Globulin (S) [Mass/Vol] 4.0 g/dL 2.2-4.2 [facility] Serum or plasma alanine dutta otransferase (ALT) measurementOrdered By: Rom Richardson on 12-24-2024 ALT [Catalytic activity/Vol] 29 U/L 16-61 [facility] Serum or plasma albumin danielle urement (mass/volume)Ordered By: Rom Richardson on 12-24-2024 Albumin [Mass/Vol] 3.5 g/dL 3.2-5.0 [facility] Serum or plasma alkaline kushal sphatase measurementOrdered By: Rom Richardson on 12-24-2024 ALP [Catalytic activity/Vol] 63 U/L 45-117 [facility] Serum or plasma cholesterol measurement (mass/volume)Ordered By: Rom Richardson on 12-24-2024 Cholesterol [Mass/Vol] 126 mg/dL <200 [facility] Comment on above: <200 mg/dL Desirable 200-240 mg/dL Borderline >240 mg/dL High Risk Total proteinOrdered By: Jim Richardson on 12-24-2024 Protein [Mass/Vol] 7.5 g/dL 6.4-8.2 [facility] Triglycerides measurementOrd ered By: Rom Richardson on 12-24-2024 Triglyceride [Mass/Vol] 147 mg/dL <199 [facility] Comment on above: The drugs N-Acetylcy steine and Metamizole may falsely depress this assay.Serum Triglycerides Reference Interval Normal <150 mg/dL Borderline high 150 - 199 mg/dL High 200 - 499 mg/dL Very High > or = 500 mg/dL Very low density lipoprotein (VLDL) cholesterol measurementOrdered By: Rom Richardson on 12-24-2024 Very low density lipoprotein (VLDL) cholesterol measurement 29 mg/dL 5-40 [facility] VLDL Cholesterol 29 mg/dL 5-40 [facility] FT3on 10-28-2024 Free T3 [Mass/Vol] 2.73 pg/mL Normal 2.30-4.00 [facility] Comment on above: Performed By: #### F T3, FT4, TSH #### [place] [id number] FT4on 10-28-2024 Free T4 [Mass/Vol] 0.78 ng/dL Normal 0.76-1.46 [facility] Comment on above: Performed By: #### F T3, FT4, TSH #### [place] [id number] LABORATORYOrdered By: SYSTEM SYSTEM on 10-28-2024 Free T3 [Mass/Vol] 2.73 pg/mL Normal 2.30 - 4. 00 pg/mL AO [facility] Free T4 [Mass/Vol] 0.78 ng/dL Normal 0.76 - 1. 46 ng/dL AO ADM SS TSH Qn 9.44 m[IU]/L High 0.36 - 3.74 mcIU/mL AO ADM SS TSHon 10-28-2024 TSH Qn 9.44 m[IU]/L High 0.36-3.74 [facility] Comment on above: Performed By: #### F T3, FT4, TSH #### [facility] [address] [place], [place] [address] Thyroid Uptake Single or Mul ton 10-06-2024 Thyroid Uptake Single or Mult [facility] Imaging Services [address] [place] [address] Thyroid Uptake Single or Mult MR#: [id number] Acct: [id number] Name: LYNETTE GONZALEZ Rep #: [id number] : 1940 M 83 From: Gus Rodriguez PCP: Dr. Cordell Escalante MD Status: REG CLI Study: Thyroid Uptake Single or Mult Date of Exam: 12/06/23 Exam# [id number] Ordering Dr: Cheri Murcia [place] [id number] CLINICAL: 83-year-old male with history of suppressed TSH and reported thyroid nodularity. I-123 THYROID UPTAKE and SCAN COMPARISON: Thyroid ultrasound reports 06/21/2024 FINDINGS: The patient was administered a 312 uCi I-123 capsule by mouth. The 4-hour I-123 radioactive iodine thyroidal uptake was calculated to be 5.6 % (normal 5.0 to 25.0 %). The 24-hour I-123 radioactive iodine thyroidal uptake was calculated to be 21.9 % (normal 5.0 to 40.0 %). The I-123 thyroid scan demonstrates homogeneous radiopharmaceutical concentration throughout both lobes of a U -shaped thyroid gland. There are no colloidal parenchymal hypofunctioning cold nodules noted in either lobe of the thyroid gland. NM/Thyroid Uptake Single or Mult IMPRESSION: 1. NORMAL 4- and 24-hour I-123 radioactive iodine thyroidal uptakes. 2. 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 (Mary et al, J Nucl Med 32: 1455, 1990). 3. No hypofunctioning-cold nodules are identified. Electronically Signed: Gus Avendaño, at 7:45 EST , CC: Dr. Cordell Escalante MD; Dr. Cheri Murcia MD Belt Notcher: Signed Normal [facility] PSA,Total- Diagnosticon 09-17 PSA, DIAGNOSTIC 6.99 ng/mL High 0.0-4.0 [facility] Comment on above: Result Comment: This test was performed using the TPSA assay method for the Fitfully chemistry system. Values obtained with different assay methods cannot be used interchangably. When changing PSA assays in the course of monitoring a patient, additional sequential testing should be carried out to confirm baseline values. Performed By: #### L 506.0400, L3400.4700, L501.9520, L501.20150 #### [facility] [address] [facility] [place], [place], [id number] CBC-Complete Blood Cnt No Di ffon 09-06-2024 Erythrocyte distribution width (RBC) [Ratio] 12.6 % Normal 11.6-14.6 [facility] Comment on above: Order Comment: Order Date: 06/08/24 Order Info: [id number] - TSIMM Performed By: #### L 506.0400, L3400.4700, L501.9520, L501.89979 #### [facility] [address] [facility] [place], [place], [id number] Hematocrit (Bld) [Volume fraction] 37.1 % Low 40-54 [facility] Comment on above: Order Comment: Order Date: 06/08/24 Order Info: [id number] - TSIMM Performed By: #### L 506.0400, L3400.4700, L501.9520, L501.08881 #### [facility] [address] [place], [address] Hemoglobin (Bld) [Mass/Vol] 12.6 g/dL Low 13.0-16.5 [facility] Comment on above: Order Comment: Order Date: 06/08/24 Order Info: [id number] - TSIMM Performed By: #### L 506.0400, L3400.4700, L501.9520, L501.35150 #### [facility] [address] [place], [address] MCH (RBC) [Entitic mass] 31.6 pg Normal 27.0-32.0 [facility] Comment on above: Order Comment: Order Date: 06/08/24 Order Info: [id number] - TSIMM Performed By: #### L 506.0400, L3400.4700, L501.9520, L501.82707 #### [facility] [address] [place], [address] MCHC (RBC) [Mass/Vol] 34.0 g/dL Normal 32-36 [facility] Comment on above: Order Comment: Order Date: 06/08/24 Order Info: [id number] - TSIMM Performed By: #### L 506.0400, L3400.4700, L501.9520, L501.30232 #### [facility] [address] [place], [address] MCV (RBC) [Entitic vol] 93.0 fL Normal 80-94 [facility] Comment on above: Order Comment: Order Date: 06/08/24 Order Info: [id number] - TSIMM Performed By: #### L 506.0400, L3400.4700, L501.9520, L501.13510 #### [facility] [address] [place], [address] Platelet mean volume (Bld) [Entitic vol] 10.4 fL Normal 6.2-12.0 [facility] Comment on above: Order Comment: Order Date: 06/08/24 Order Info: [id number] - TSIMM Performed By: #### L 506.0400, L3400.4700, L501.9520, L501.19041 #### [facility] [address] [place], [address] Platelets (Bld) [#/Vol] 215 10*3/uL Normal 150-450 [facility] Comment on above: Order Comment: Order Date: 06/08/24 Order Info: [id number] - TSIMM Performed By: #### L 506.0400, L3400.4700, L501.9520, L501.21838 #### [facility] [address] [place], [address] RBC (Bld) [#/Vol] 3.99 10*6/uL Low 4.6-6.2 [facility] Comment on above: Order Comment: Order Date: 06/08/24 Order Info: [id number] - TSIMM Performed By: #### L 506.0400, L3400.4700, L501.9520, L501.64297 #### [facility] [address] [place], [address] RDW SD 43.0 fl Normal 35.1-43.9 [facility] Comment on above: Order Comment: Order Date: 06/08/24 Order Info: [id number] - TSIMM Performed By: #### L 506.0400, L3400.4700, L501.9520, L501.87330 #### [facility] [address] [place], [address] WBC (Bld) [#/Vol] 8.4 10*3/uL Normal 4.4-11.0 [facility] Comment on above: Order Comment: Order Date: 06/08/24 Order Info: [id number] - TSIMM Performed By: #### L 506.0400, L3400.4700, L501.9520, L501.78978 #### [facility] [address] [place], [address] Comprehensive Metabolic Prof ilon 09-06-2024 Albumin [Mass/Vol] 3.5 g/dL Normal 3.2-5.0 [facility] Comment on above: Order Comment: Order Date: 06/08/24 Order Info: [id number] - TSIMM Performed By: #### L 506.0400, L3400.4700, L501.9520, L501.61808 #### [facility] [address] [place], [address] Albumin/Globulin [Mass ratio] 0.9 {ratio} Normal 0.9-2.4 [facility] Comment on above: Order Comment: Order Date: 06/08/24 Order Info: [id number] - TSIMM Performed By: #### L 506.0400, L3400.4700, L501.9520, L501.07903 #### [facility] [address] [place], [address] ALK P 74 U/L Normal 45-117 [facility] Comment on above: Order Comment: Order Date: 06/08/24 Order Info: [id number] - TSIMM Performed By: #### L 506.0400, L3400.4700, L501.9520, L501.23304 #### [facility] [address] [place], [address] ALT [Catalytic activity/Vol] 23 U/L Normal 16-61 [facility] Comment on above: Order Comment: Order Date: 06/08/24 Order Info: [id number] - TSIMM Performed By: #### L 506.0400, L3400.4700, L501.9520, L501.70177 #### [facility] [address] [place], [address] AST [Catalytic activity/Vol] 14 U/L Low 15-37 [facility] Comment on above: Order Comment: Order Date: 06/08/24 Order Info: [id number] - TSIMM Performed By: #### L 506.0400, L3400.4700, L501.9520, L501.46359 #### [facility] [address] [place], [address] Bilirubin [Mass/Vol] 0.60 mg/dL Normal 0.20-1.00 [facility] Comment on above: Order Comment: Order Date: 06/08/24 Order Info: [id number] - TSIMM Result Comment: For patients on eltrombopag therapy, use of Dimension Tupman TBIL is not recommended. Performed By: #### L 506.0400, L3400.4700, L501.9520, L501.13781 #### [facility] [address] [place], [address] BUN/CRE 11.7 RATIO Normal 10-20 [facility] Comment on above: Order Comment: Order Date: 06/08/24 Order Info: [id number] - TSIMM Performed By: #### L 506.0400, L3400.4700, L501.9520, L501.88074 #### [facility] [address] [place], [address] CA,Total 9.1 mg/dL Normal 8.5-10.1 [facility] Comment on above: Order Comment: Order Date: 06/08/24 Order Info: [id number] - TSIMM Performed By: #### L 506.0400, L3400.4700, L501.9520, L501.58489 #### [facility] [address] [place], [address] Chloride [Moles/Vol] 108 mmol/L High 98-107 [facility] Comment on above: Order Comment: Order Date: 06/08/24 Order Info: [id number] - TSIMM Performed By: #### L 506.0400, L3400.4700, L501.9520, L501.33558 #### [facility] [address] [place], [address] CO2 [Moles/Vol] 23.0 mmol/L Normal 21.0-32.0 [facility] Comment on above: Order Comment: Order Date: 06/08/24 Order Info: 13790-0 - TSIMM Performed By: #### L 506.0400, L3400.4700, L501.9520, L501.69425 #### [facility] [address] [place], [address] Creatinine [Mass/Vol] 1.20 mg/dL Normal 0.70-1.30 [facility] Comment on above: Order Comment: Order Date: 06/08/24 Order Info: [id number] - TSIMM Result Comment: The validity of the calculated GFR GFRAA in patients over 70 years has not been determined. Clinical correlation is essential. Performed By: #### L 506.0400, L3400.4700, L501.9520, L501.45550 #### [facility] [address] [place], [address] EST GFR - AA 74 mL/min Normal >60 [facility] Comment on above: Order Comment: Order Date: 06/08/24 Order Info: [id number] - TSIMM Result Comment: Afri can Irish GFR Calc Performed By: #### L 506.0400, L3400.4700, L501.9520, L501.84162 #### [facility] [address] [place], [address] GAP 8 Normal 5-15 [facility] Comment on above: Order Comment: Order Date: 06/08/24 Order Info: [id number] - TSIMM Performed By: #### L 506.0400, L3400.4700, L501.9520, L501.73033 #### [facility] [address] [place], [address] GFR/1.73 sq M.predicted among non-blacks MDRD (S/P/Bld) [Vol rate/Area] 62 mL/min/{1.73_m2} Normal >60 [facility] Comment on above: Order Comment: Order Date: 06/08/24 Order Info: [id number] - TSIMM Result Comment: Non- GFR Calc Performed By: #### L 506.0400, L3400.4700, L501.9520, L501.10216 #### [facility] [address] [place], [place], [id number] [phone] Globulin (S) [Mass/Vol] 3.9 g/dL Normal 2.2-4.2 [facility] Comment on above: Order Comment: Order Date: 06/08/24 Order Info: [id number] - TSIMM Performed By: #### L 506.0400, L3400.4700, L501.9520, L501.56995 #### [facility] [address] [place], [address] Glucose [Mass/Vol] 101 mg/dL Normal 74-106 [facility] Comment on above: Order Comment: Order Date: 06/08/24 Order Info: [id number] - TSIMM Result Comment: Fast ing Glucose result from 100 to 125 mg/dL suggests IMPAIRED HOMEOSTASIS per A.D.A. criteria. Performed By: #### L 506.0400, L3400.4700, L501.9520, L501.86950 #### [facility] [address] [place], [place], [id number] [phone] Potassium [Moles/Vol] 4.1 mmol/L Normal 3.5-5.1 [facility] Comment on above: Order Comment: Order Date: 06/08/24 Order Info: [id number] - TSIMM Performed By: #### L 506.0400, L3400.4700, L501.9520, L501.63582 #### [facility] [address] [place], [address] Sodium [Moles/Vol] 139 mmol/L Normal 136-145 [facility] Comment on above: Order Comment: Order Date: 06/08/24 Order Info: 21145-9 - TSIMM Performed By: #### L 506.0400, L3400.4700, L501.9520, L501.68397 #### [facility] [address] [place], [address] T PROT 7.4 g/dL Normal 6.4-8.2 [facility] Comment on above: Order Comment: Order Date: 06/08/24 Order Info: [id number] - TSIMM Performed By: #### L 506.0400, L3400.4700, L501.9520, L501.29682 #### [facility] [address] [place], [address] Urea nitrogen [Mass/Vol] 14 mg/dL Normal 7-18 [facility] Comment on above: Order Comment: Order Date: 06/08/24 Order Info: 33297-7 - TSIMM Performed By: #### L 506.0400, L3400.4700, L501.9520, L501.79350 #### [facility] [address] [place], [address] Erythrocyte Sed Rateon 09-06 SED RATE 10 mm/hr Normal 0-20 [facility] Comment on above: Order Comment: Order Date: 06/08/24 Order Info: 3051-0 - T3F Order Info: 3016-3 - TSH Order Info: 3024-7 - T4F Performed By: #### L 506.0400, L3400.4700, L501.9520, L501.42158 #### [facility] [address] [place], [address] Free T3on 09-06-2024 Free T3 [Mass/Vol] 2.4 pg/mL Normal 2.18-3.98 [facility] Comment on above: Order Comment: Order Date: 06/08/24 Order Info: [id number] - TSIMM Performed By: #### L 506.0400, L3400.4700, L501.9520, L501.39584 #### [facility] [address] [place], [address] T4 Free Directon 09-06-2024 T4 FREE DIRECT 0.86 ng/dL Normal 0.76-1.46 [facility] Comment on above: Order Comment: Order Date: 06/08/24 Order Info: [id number] - TSIMM Performed By: #### L 506.0400, L3400.4700, L501.9520, L501.88357 #### [facility] [address] [place], [address] Thyroid Stim Hormone (TSH)on 09-06-2024 TSH 12.500 uIU/mL High 0.358-3.740 [facility] Comment on above: Order Comment: Order Date: 06/08/24 Order Info: [id number] - TSIMM Performed By: #### L 506.0400, L3400.4700, L501.9520, L501.06336 #### [facility] [address] [place], [address] Echo Complete W/ Contraston 06-28-2024 Echo Complete W/ Contrast [facility] [address] [facility] [place] [address] Echo Complete W/ Contrast 06/28/24 0831 MR#: [id number] Acct: [id number] Name: LYNETTE GONZALEZ Rep #: [id number] : 1940 83 From: Parag Stanton MD Attending Dr: Rom Richardson, SECURITY ESCORT-C Status: REG CLI Ordering Dr: Rom Richardson SECURITY ESCORT SECURITY ESCORT-C Date: 06/28/24 Location: [facility] Sex: M C Admitted: Reason For Study: PVC BURDEN Procedure This was a 2D Doppler, Color Flow transthoracic echocardiogram. The study was technically difficult. Contrast injection was performed. Exam performed in department. Left Ventricle Normal LV size. Left ventricular systolic function is normal. The left ventricular ejection fraction is 65 %. No regional wall motion abnormalities noted. Right Ventricle Normal RV size. Atria The left atrium is moderately enlarged. Normal right atrium. Great Vessels Normal aortic root. Pericardium/Pleural No pericardial effusion. Medication Diluted definity 1ml given slow IV push to enhance endocardial definition. MMode/2D Measurements Calculations LVIDd: 5.0 cm IVSd: 1.1 cm LVOT diam: 2.0 cm LVIDs: 3.5 cm LVPWd: 1.0 cm FS: 29.6 % LVOT area: 3.0 cm2 Ao root diam: 4.1 cm LAV(MOD-sp4): 72.4 ml LVAd ap4: 37.0 cm2 LVLd ap4: 8.3 cm EDV(MOD-sp4): 134.7 ml EDV(sp4-el): 139.9 ml LVAs ap4: 15.1 cm2 LVLs ap4: 6.2 cm ESV(MOD-sp4): 31.7 ml ESV(sp4-el): 31.3 ml EF(MOD-sp4): 76.5 % EF(sp4-el): 77.6 % SV(MOD-sp4): 103.0 ml SV(sp4-el): 108.5 ml LA A4 area: 25.5 cm2 LA dimension(2D): 4.7 cm RA A4 area: 21.2 cm2 Time Measurements MV dec time: 0.19 sec Doppler Measurements Calculations MV E max elin: 77.5 cm/sec Lat Peak E' Elin: 11.8 cm/sec Med Peak E' Elin: 7.1 cm/sec MV A max elin: 61.7 cm/sec E/E' lat: 6.5 E/E' med: 10.9 MV E/A: 1.3 MV dec slope: 398.3 cm/sec2 Ao V2 max: 147.7 cm/sec LV V1 max: 139.2 cm/sec Ao max P.7 mmHg LV V1 max P.8 mmHg Ao V2 mean: 73.5 cm/sec LV V1 mean P.9 mmHg Ao mean P.0 mmHg LV V1 mean: 91.1 cm/sec Ao V2 VTI: 31.1 cm LV V1 VTI: 31.4 cm AV (velocity ratio): 1.0 LORI(I,D): 3.1 cm2 LORI(V,D): 2.9 cm2 SV(LVOT): 95.3 ml PA V2 max: 90.0 cm/sec PI end-d elin: 104.4 cm/sec PA V2 mean: 69.9 cm/sec ECHO/Echo Complete W/ Contrast Interpretation Summary Normal LV size. Left ventricular systolic function is normal. The left ventricular ejection fraction is 65 %. The left atrium is moderately enlarged. Contrast injection was performed. Ordering Physician: Rom Richardson Referring Physician: Rom Richardson Performed By: Teressa Hooks RCS 06/28/24 1241 Date Parag Stanton MD CC: SECURITY ESCORT-C Rom Richardson; Dr. Cordell Escalante MD Date Dictated: 06/28/24830 Date Transcribed: 06/28/24 124 Belt Notcher: Signed Normal [facility] Stress Reporton 06-28-2024 Stress Report [facility] [address] [place] [address] MR#: [id number] Acct: [id number] Name: LYNETTE GONZALEZ Rep #: [id number] : 1940 83 From: Parag Stanton MD Primary Care: Dr. Cordell Escalante MD Status: REG CLI Referring Dr: Rom Richardson SECURITY ESCORT SECURITY ESCORT-C Sex: M C Stress Test Report Pharmacologic myocardial perfusion stress test. 83-year-old male with a history of coronary disease Resting EKG demonstrates normal sinus rhythm with a rate of 76 and frequent premature ventricular complexes. Resting blood pressure is 128/72 mmHg. 0.4 mg of regadenoson was infused per usual protocol followed by rapid intravenous saline flush injection. Continuous EKG monitoring was performed. The maximum heart rate was 101 bpm which was 73% of max impacted heart rate the maximum workload was 1 metabolic equivalent. At rest there were no ST or T wave changes noted to suggest ischemia and at peak infusion nonspecific ST changes were noted which did not meet the criteria for ischemia. No clinical angina is noted. The final blood pressure was 120/72 mmHg. Myocardial perfusion protocol. 11.2 mCi of technetium 99m sestamibi was injected at rest. 0.4 mg of regadenoson was infused per usual protocol. At peak infusion 32 mCi of technetium 99m sestamibi was injected stress images were obtained stress and rest images were reconstructed and compared in the short axis vertical long and horizontal long axis. Gated images were also obtained. Perfusion SPECT analysis: Review of the stress images demonstrate normal uptake of tracer noted in all areas of the myocardium. The resting images similar demonstrated normal uptake of tracer noted in all areas of the myocardium. No areas of reversibility are noted to suggest ischemia and no previous infarct is noted. Gated SPECT analysis: The gated ejection fraction is 59. Conclusion: Normal pharmacologic myocardial perfusion stress test. Preserved ejection fraction. 06/28/24 1040 Date Parag Stanton MD CC: DESTINY Richardson; Dr. Cordell Escalante MD Date Dictated: 06/28/24 1037 Date Transcribed: 06/28/24 1037 Belt Notcher: [place] Signed Normal [facility] PSA,Total - Annual Screenon 06-26-2024 PSA,TOT SCREEN 0.50 ng/mL Normal 0.00-4.00 [facility] Comment on above: Result Comment: This test was performed using the TPSA assay method for the [employer] chemistry system. Values obtained with different assay methods cannot be used interchangably. When changing PSA assays in the course of monitoring a patient, additional sequential testing should be carried out to confirm baseline values. Performed By: #### L 506.0400, L3400.4700, L501.9520, L501.44447 #### [facility] [place], [address] Thyroidon 06-21-2024 Thyroid [facility] Imaging Services [address] [place], [place] [id number] Thyroid MR#: [id number] Acct: [id number] Name: LYNETTE GONZALEZ Rep #: [id number] : 1940 M 83 From: Scar stein MD PCP: Dr. Cordell Escalante MD Status: REG CLI Study: Thyroid Date of Exam: 06/21/24 Exam# [id number] Ordering Dr: Cordell Escalante [place] [id number] INDICATION: Thyrotoxicosis, unspecified without thyrotoxic crisis or storm EXAMINATION: Ultrasound US Thyroid (eg thyroid, parathyroid, parotid) TECHNIQUE: Taylor scale and color doppler imaging was performed of the thyroid gland. COMPARISON: No relevant prior comparison study available FINDINGS: RIGHT THYROID LOBE: 4.2 x 1.7 x 1.5 cm cm. Parenchyma: The gland echotexture is homogenous. Thyroid vascularity is normal. LEFT THYROID LOBE: 3.9 x 1.6 x 1.5 cm. Parenchyma: The gland echotexture is homogenous. Thyroid vascularity is normal. ISTHMUS: 0.2 cm in maximum AP dimension. Estimated total number of nodules greater than equal to 1 cm: 1. Ballistic Technician nodules are described as follows: 1. Location: Right upper Size: 1.1 x 0.7 x 0.6 cm. Nodule characteristics: Composition: Solid or almost completely solid (2). Echogenicity: Hypoechoic (2). Shape: Wider than tall (0). Margins: Smooth (0). Echogenic Foci: None (0). ACR TI-RADS total points: 4. ACR TI-RADS category: 4. 2. Location: Left mid Size: 0.6 x 0.4 x 0.3 cm. Nodule characteristics: Composition: Mixed cystic and solid (1). Echogenicity: Isoechoic (1). Shape: Wider than tall (0). Margins: Smooth (0). Echogenic Foci: None (0). ACR TI-RADS total points: 2. ACR TI-RADS category: 2. LYMPH NODES: No lymphadenopathy is seen in the tissue surrounding the thyroid gland. US/Thyroid IMPRESSION: Thyroid nodules are identified. Nodule #1 there is appropriate for follow-up in one year. ACR TI-RADS RECOMMENDATION REFERENCE: Ultrasound-guided fine-needle aspiration, follow-up ultrasound, no further follow-up. *TR 1 (0 points) and TR 2 (2 points): No FNA or follow-up. *TR 3 (3 points): FNA if more than or equal to 2.5 cm in maximum dimension. Follow-up ultrasound in 1, 3, and 5 years if 1.5 to 2.4 cm in maximum dimension. *TR 4 (4-6 points): FNA if more than or equal to 1.5 cm in maximum dimension. Follow-up ultrasound in 1, 2, 3, and 5 years if 1 to 1.4 cm in maximum dimension. *TR 5 (more than or equal to 7 points): FNA if more than or equal to 1 cm in maximum dimension. Follow-up ultrasound every year for 5 years if 0.5 to 0.9 cm in maximum dimension. *TR 3, TR 4, or TR 5 nodules that are below the size threshold for follow-up receive no follow-up. Electronically Signed: Scar Clark MD at 8:43 EDT Reading Location ID and State: [facility] / [place] Tel , Service support , CC: Dr. Cordell Escalante MD Belt Notcher: Signed Normal [facility] Thyroid Stim Hormone (TSH)on 06-21-2024 TSH 0.24 uIU/mL Low 0.358-3.74 [facility] Comment on above: Order Comment: Order Date: 06/08/24 Order Info: 3051-0 - T3F Order Info: 3016-3 - TSH Order Info: 3024-7 - T4F Performed By: #### L 506.0400, L3400.4700, L501.9520, L501.45316 #### [facility] [address] [place], [address] Thyroid Antibodieson 024 TG AB < 1.0 Normal 0.0-0.9 [facility] Comment on above: Order Comment: Order Date: 06/08/24 Order Info: [id number] - TSIMM Result Comment: Thyr oglobulin Antibody measured by [employer] [place] Methodology It should be noted that the presence of thyroglobulin antibodies may not be pathogenic nor diagnostic, especially at very low levels. The assay telephone directory deliverer has found that four percent of individuals without evidence of thyroid disease or autoimmunity will have positive TgAb levels up to 4 IU/mL. Performed at: [address] [id number] Clam Dredger: Anayeli White MD, Phone: [phone] Performed at: [address] [id number] Clam Dredger: Hi Mcdonald PhD, Phone: [phone] Performed By: #### L 8410.6750 #### [facility] [address] [place], [place], [address] THYR PEROX AB < 9 Normal 0-34 [facility] Comment on above: Order Comment: Order Date: 06/08/24 Order Info: [id number] - TSIMM Performed By: #### L 3300.6750 #### [facility] [address] [place], [place], [address] Thyroid Stim Immunoglobon THY STIM IMMUNO <0.10 Normal 0.00-0.55 [facility] Comment on above: Order Comment: Order Date: 06/08/24 Order Info: [id number] - TSIMM Performed By: #### L 506.0400, L3400.4700, L501.9520, L501.66520 #### [facility] [address] [place], [address] Free T3on 06-11-2024 Free T3 [Mass/Vol] 3.0 pg/mL Normal 2.18-3.98 [facility] Comment on above: Order Comment: Order Date: 06/08/24 Order Info: 3051-0 - T3F Order Info: 3015-3 - TSH Order Info: 7 - T4F Performed By: #### L 506.0400, L3400.4700, L501.9520, L501.38331 #### [facility] [address] [place], [address] T4 Free Directon 06-11-2024 T4 FREE DIRECT 1.27 ng/dL Normal 0.76-1.46 [facility] Comment on above: Order Comment: Order Date: 06/08/24 Order Info: 3051-0 - T3F Order Info: 3015-3 - TSH Order Info: 7 - T4F Performed By: #### L 506.0400, L3400.4700, L501.9520, L501.95989 #### [facility] [address] [place], [address] Thyroid Stim Hormone (TSH)on 06-11-2024 TSH 0.06 uIU/mL Low 0.358-3.74 [facility] Comment on above: Order Comment: Order Date: 06/08/24 Order Info: 3051-0 - T3F Order Info: 301-3 - TSH Order Info: 7 - T4F Performed By: #### L 506.0400, L3400.4700, L501.9520, L501.34984 #### [facility] [address] [place], [address] BNP,B-Type NATRIURETIC PEPTI Katherine 05-27-2024 Natriuretic peptide B (Bld) [Mass/Vol] 152.2 pg/mL High 0-100 [facility] Comment on above: Performed By: #### L 503.6620, L501.5200, L501.9520, L506.0400, L500.4050, L100.0100 #### [facility] [address] [place], [address] CBC W/Diff, Automatedon 07-11 17-2023 Absolute Lymph 1.22 X10 3/uL Normal 0.83-4.51 [facility] Comment on above: Performed By: #### L 503.6620, L501.5200, L501.9520, L506.0400, L500.4050, L100.0100 #### [facility] [address] [place], [address] Absolute Neut 6.5 X10 3/uL Normal 2.0-7.7 [facility] Comment on above: Performed By: #### L 503.6620, L501.5200, L501.9520, L506.0400, L500.4050, L100.0100 #### [facility] [address] [place], [address] Basophils/100 WBC (Bld) 0.5 % Normal 0-1 [facility] Comment on above: Performed By: #### L 503.6620, L501.5200, L501.9520, L506.0400, L500.4050, L100.0100 #### [facility] [address] [place], [address] Eosinophils/100 WBC (Bld) 3.2 % Normal 0-5 [facility] Comment on above: Performed By: #### L 503.6620, L501.5200, L501.9520, L506.0400, L500.4050, L100.0100 #### [facility] [address] [place], [address] Erythrocyte distribution width (RBC) [Ratio] 12.4 % Normal 11.6-14.6 [facility] Comment on above: Performed By: #### L 503.6620, L501.5200, L501.9520, L506.0400, L500.4050, L100.0100 #### [facility] [address] [place], [address] Hematocrit (Bld) [Volume fraction] 37.6 % Low 40-54 [facility] Comment on above: Performed By: #### L 503.6620, L501.5200, L501.9520, L506.0400, L500.4050, L100.0100 #### [facility] [address] [place], [address] Hemoglobin (Bld) [Mass/Vol] 12.8 g/dL Low 13.0-16.5 [facility] Comment on above: Performed By: #### L 503.6620, L501.5200, L501.9520, L506.0400, L500.4050, L100.0100 #### [facility] [address] [facility] [place], [address] IG% 0.600 Normal 0.0-0.9 [facility] Comment on above: Result Comment: IG% - Immature Granulocytes (promyelocytes, myelocytes and metamyelocytes) > 1% indicates that a LEFT SHIFT is Present. Performed By: #### L 503.6620, L501.5200, L501.9520, L506.0400, L500.4050, L100.0100 #### [facility] [address] [place], [address] Lymphocytes/100 WBC (Bld) 13.9 % Low 19-41 [facility] Comment on above: Performed By: #### L 503.6620, L501.5200, L501.9520, L506.0400, L500.4050, L100.0100 #### [facility] [address] [place], [address] MCH (RBC) [Entitic mass] 31.0 pg Normal 27.0-32.0 [facility] Comment on above: Performed By: #### L 503.6620, L501.5200, L501.9520, L506.0400, L500.4050, L100.0100 #### [facility] [address] [place], [address] MCHC (RBC) [Mass/Vol] 34.0 g/dL Normal 32-36 [facility] Comment on above: Performed By: #### L 503.6620, L501.5200, L501.9520, L506.0400, L500.4050, L100.0100 #### [facility] [address] [place], [address] MCV (RBC) [Entitic vol] 91.0 fL Normal 80-94 [facility] Comment on above: Performed By: #### L 503.6620, L501.5200, L501.9520, L506.0400, L500.4050, L100.0100 #### [facility] [address] [place], [address] Monocytes/100 WBC (Bld) 7.8 % Normal 0-10 [facility] Comment on above: Performed By: #### L 503.6620, L501.5200, L501.9520, L506.0400, L500.4050, L100.0100 #### [facility] [address] [place], [address] Neutrophils/100 WBC (Bld) 74.0 % High 47-70 [facility] Comment on above: Performed By: #### L 503.6620, L501.5200, L501.9520, L506.0400, L500.4050, L100.0100 #### [facility] [address] [place], [address] Nucleated RBC (Bld) [#/Vol] 0 10*3/uL Normal 0-5 [facility] Comment on above: Performed By: #### L 503.6620, L501.5200, L501.9520, L506.0400, L500.4050, L100.0100 #### [facility] [address] [place], [address] Platelet mean volume (Bld) [Entitic vol] 11.4 fL Normal 6.2-12.0 [facility] Comment on above: Performed By: #### L 503.6620, L501.5200, L501.9520, L506.0400, L500.4050, L100.0100 #### [facility] [address] [place], [address] Platelets (Bld) [#/Vol] 191 10*3/uL Normal 150-450 [facility] Comment on above: Performed By: #### L 503.6620, L501.5200, L501.9520, L506.0400, L500.4050, L100.0100 #### [facility] [address] [place], [address] RBC (Bld) [#/Vol] 4.13 10*6/uL Low 4.6-6.2 [facility] Comment on above: Performed By: #### L 503.6620, L501.5200, L501.9520, L506.0400, L500.4050, L100.0100 #### [facility] [address] [place], [address] RDW SD 40.8 fl Normal 35.1-43.9 [facility] Comment on above: Performed By: #### L 503.6620, L501.5200, L501.9520, L506.0400, L500.4050, L100.0100 #### [facility] [address] [place], [address] WBC (Bld) [#/Vol] 8.8 10*3/uL Normal 4.4-11.0 [facility] Comment on above: Performed By: #### L 503.6620, L501.5200, L501.9520, L506.0400, L500.4050, L100.0100 #### [facility] [address] [place], [address] Comprehensive Metabolic Prof nyon 05-27-2024 Albumin [Mass/Vol] 3.4 g/dL Normal 3.2-5.0 [facility] Comment on above: Performed By: #### L 503.6620, L501.5200, L501.9520, L506.0400, L500.4050, L100.0100 #### [facility] [address] [place], [address] Albumin/Globulin [Mass ratio] 0.8 {ratio} Low 0.9-2.4 [facility] Comment on above: Performed By: #### L 503.6620, L501.5200, L501.9520, L506.0400, L500.4050, L100.0100 #### [facility] [address] [place], [address] ALK P 75 U/L Normal 45-117 [facility] Comment on above: Performed By: #### L 503.6620, L501.5200, L501.9520, L506.0400, L500.4050, L100.0100 #### [facility] [address] [place], [address] ALT [Catalytic activity/Vol] 29 U/L Normal 16-61 [facility] Comment on above: Performed By: #### L 503.6620, L501.5200, L501.9520, L506.0400, L500.4050, L100.0100 #### [facility] [address] [place], [address] AST [Catalytic activity/Vol] 20 U/L Normal 15-37 [facility] Comment on above: Result Comment: Slig ht Hemolysis, Result may be falsely increased. Performed By: #### L 503.6620, L501.5200, L501.9520, L506.0400, L500.4050, L100.0100 #### [facility] [address] [place], [address] Bilirubin [Mass/Vol] 0.30 mg/dL Normal 0.20-1.00 [facility] Comment on above: Result Comment: For patients on eltrombopag therapy, use of Dimension Tupman TBIL is not recommended. Performed By: #### L 503.6620, L501.5200, L501.9520, L506.0400, L500.4050, L100.0100 #### [facility] [address] [place], [address] BUN/CRE 16.8 RATIO Normal 10-20 [facility] Comment on above: Performed By: #### L 503.6620, [id number], L501.9520, L506.0400, L500.4050, L100.0100 #### [facility] [address] [place], [address] CA,Total 9.2 mg/dL Normal 8.5-10.1 [facility] Comment on above: Performed By: #### L 503.6620, [id number], L501.9520, L506.0400, L500.4050, L100.0100 #### [facility] [address] [place], [address] Chloride [Moles/Vol] 105 mmol/L Normal 98-107 [facility] Comment on above: Performed By: #### L 503.6620, L501.5200, L501.9520, L506.0400, L500.4050, L100.0100 #### [facility] [address] [place], [address] CO2 [Moles/Vol] 25.0 mmol/L Normal 21.0-32.0 [facility] Comment on above: Performed By: #### L 503.6620, L501.5200, L501.9520, L506.0400, L500.4050, L100.0100 #### [facility] [address] [place], [address] Creatinine [Mass/Vol] 1.31 mg/dL High 0.70-1.30 [facility] Comment on above: Result Comment: The validity of the calculated GFR GFRAA in patients over 70 years has not been determined. Clinical correlation is essential. Performed By: #### L 503.6620, L501.5200, L501.9520, L506.0400, L500.4050, L100.0100 #### [facility] [address] [place], [address] EST GFR - AA 67 mL/min Normal >60 [facility] Comment on above: Result Comment: Afri can Irish GFR Calc Performed By: #### L 503.6620, [id number], L501.9520, L506.0400, L500.4050, L100.0100 #### [facility] [address] [place], [address] GAP 8 Normal 5-15 [facility] Comment on above: Performed By: #### L 503.6620, L501.5200, L501.9520, L506.0400, L500.4050, L100.0100 #### [facility] [address] [place], [address] GFR/1.73 sq M.predicted among non-blacks MDRD (S/P/Bld) [Vol rate/Area] 56 mL/min/{1.73_m2} Low >60 [facility] Comment on above: Result Comment: Non- GFR Calc Performed By: #### L 503.6620, L501.5200, L501.9520, L506.0400, L500.4050, L100.0100 #### [facility] [address] [place], [address] Globulin (S) [Mass/Vol] 4.1 g/dL Normal 2.2-4.2 [facility] Comment on above: Performed By: #### L 503.6620, [id number], L501.9520, L506.0400, L500.4050, L100.0100 #### [facility] [address] [place], [address] Glucose [Mass/Vol] 148 mg/dL High 74-106 [facility] Comment on above: Result Comment: Fast ing Glucose result greater than or equal to 126 mg/dL suggests DIABETES MELLITUS per A.D.A. criteria. Performed By: #### L 503.6620, L501.5200, L501.9520, L506.0400, L500.4050, L100.0100 #### [facility] [address] [place], [address] Potassium [Moles/Vol] 4.0 mmol/L Normal 3.5-5.1 [facility] Comment on above: Result Comment: Slig ht Hemolysis, Result may be falsely increased. Performed By: #### L 503.6620, L501.5200, L501.9520, L506.0400, L500.4050, L100.0100 #### [facility] [address] [place], [address] Sodium [Moles/Vol] 138 mmol/L Normal 136-145 [facility] Comment on above: Performed By: #### L 503.6620, L501.5200, L501.9520, L506.0400, L500.4050, L100.0100 #### [facility] [address] [place], [address] T PROT 7.5 g/dL Normal 6.4-8.2 [facility] Comment on above: Performed By: #### L 503.6620, L501.5200, L501.9520, L506.0400, L500.4050, L100.0100 #### [facility] [address] [place], [address] Urea nitrogen [Mass/Vol] 22 mg/dL High 7-18 [facility] Comment on above: Performed By: #### L 503.6620, L501.5200, L501.9520, L506.0400, L500.4050, L100.0100 #### [facility] [address] [place], [address] Magnesiumon 05-27-2024 Magnesium [Mass/Vol] 2.4 mg/dL Normal 1.6-2.6 [facility] Comment on above: Result Comment: Slig ht Hemolysis, Result may be falsely increased. Performed By: #### L 503.6620, L501.5200, L501.9520, L506.0400, L500.4050, L100.0100 #### [facility] [address] [place], [address] T4 Free Directon 05-27-2024 T4 FREE DIRECT 1.57 ng/dL High 0.76-1.46 [facility] Comment on above: Performed By: #### L 506.0400, L3400.4700, L501.9520, L501.07833 #### [facility] [address] [place], [address] Thyroid Stim Hormone (TSH)on 05-27-2024 TSH Qn m[IU]/L Low 0.358-3.74 [facility] Comment on above: Performed By: #### L 503.6620, L501.5200, L501.9520, L506.0400, L500.4050, L100.0100 #### [facility] [address] [place], [address] Basophil percentageOrdered B y: Rom Dylan on 03-04-2024 Basophil percentage 6.24 ng/mL 0.0-4.0 [facility] Comment on above: This test was perfor med using the TPSA assay method for the[facility] system. Values obtained with differentassay methods cannot be used interchangably.When changing PSA assays in the course of monitoring apatient, additional sequential testing should be carriedout to confirm baseline values. Bilirubin [Mass/Vol] 0.60 mg/dL 0.20-1.00 [facility] Comment on above: For patients on eltr ombopag therapy, use of Dimension [place] TBIL is not recommended. Cholesterol [Mass/Vol] 102 mg/dL <200 [facility] Comment on above: <200 mg/dL Desirable 200-240 mg/dL Borderline >240 mg/dL High Risk Protein [Mass/Vol] 7.6 g/dL 6.4-8.2 [facility] Triglyceride [Mass/Vol] 105 mg/dL <199 [facility] Comment on above: The drugs N-Acetylcy steine and Metamizole may falsely depress this assay.Serum Triglycerides Reference Interval Normal <150 mg/dL Borderline high 150 - 199 mg/dL High 200 - 499 mg/dL Very High > or = 500 mg/dL Direct bilirubinOrdered By: Rom Richardson on 03-04-2024 Bilirubin.direct [Mass/Vol] 0.16 mg/dL 0.00-0.30 [facility] - Chemistry and C hemistry - challengeOrdered By: Rom Richardson on 03-04-2024 ALP [Catalytic activity/Vol] 68 U/L 45-117 [facility] ALT [Catalytic activity/Vol] 23 U/L 16-61 [facility] Cholesterol in HDL [Mass/Vol] 32 mg/dL >40 [facility] Comment on above: The drugs N-Acetylcy steine and Metamizole may falsely depress this assay. Reference Range HDL <40 mg/dL Low HDL Cholesterol HDL >or= 60 mg/dL High HDL Cholesterol Cholesterol in LDL [Mass/Vol] 49 mg/dL 0-130 [facility] Globulin (S) [Mass/Vol] 4.0 g/dL 2.2-4.2 [facility] No Panel InformationOrdered By: Rom Richardson on 03-04-2024 VLDL Cholesterol 21 mg/dL 5-40 [facility] Thin prep Papanicolaou smear with manual screeningOrdered By: Rom Richardson on 03-04-2024 Thin prep Papanicolaou smear with manual screening 3.6 g/dL 3.2-5.0 [facility] Thin prep Papanicolaou smear with manual screening 19 U/L 15-37 [facility] Absolute lymphocyte countOrd ered By: Lety Mcdonald on 08-06-2023 Lymphocytes Auto (Unsp spec) [#/Vol] 1.31 10*3/uL 0.83-4.51 [facility] Basophil percentageOrdered B y: Lety Mcdonald on 08-06-2023 Basophils/100 WBC (Bld) 0.6 % 0-1 [facility] Chloride [Moles/Vol] 110 mmol/L 98-107 [facility] Eosinophils/100 WBC (Bld) 3.2 % 0-5 [facility] Glucose [Mass/Vol] 88 mg/dL 74-106 [facility] Neutrophils (Bld) [#/Vol] 4.8 10*3/uL 2.0-7.7 [facility] Neutrophils/100 WBC (Bld) 66.8 % 47-70 [facility] Potassium [Moles/Vol] 4.1 mmol/L 3.5-5.1 [facility] Sodium [Moles/Vol] 140 mmol/L 136-145 [facility] WBC (Bld) [#/Vol] 7.1 10*3/uL 4.4-11.0 [facility] Blood erythrocytes count (nu mber/volume)Ordered By: Lety Mcdonald on 08-06-2023 RBC (Bld) [#/Vol] 4.27 10*6/uL 4.6-6.2 [facility] Blood hemoglobin measurement (mass/volume)Ordered By: Lety Mcdonald on 08-06-2023 Hemoglobin (Bld) [Mass/Vol] 13.4 g/dL 13.0-16.5 [facility] Blood lymphocytes/100 leukoc ytesOrdered By: Lety Mcdonald on 08-06-2023 Lymphocytes/100 WBC (Bld) 18.4 % 19-41 [facility] Blood monocytes/100 leukocyt esOrdered By: Lety Mcdonald on 08-06-2023 Monocytes/100 WBC (Bld) 10.4 % 0-10 [facility] Blood platelet mean volumeOr dered By: Lety Mcdonald on 08-06-2023 Platelet mean volume (Bld) [Entitic vol] 10.2 fL 6.2-12.0 [facility] Determination of erythrocyte mean corpuscular volume (MCV)Ordered By: Lety Mcdonald on 08-06-2023 MCV (RBC) [Entitic vol] 95.6 fL 80-94 [facility] Hematocrit Auto (Bld) [Volum e fraction]Ordered By: Lety Mcdonald on 08-06-2023 Hematocrit (Bld) [Volume fraction] 40.8 % 40-54 [facility] - Chemistry and C hemistry - challengeOrdered By: Ltey Mcdonald on 08-06-2023 CO2 [Moles/Vol] 25.0 mmol/L 21.0-32.0 [facility] Urea nitrogen/Creatinine [Mass ratio] 20.9 mg/mg 10-20 [facility] - Hematology and Cell countsOrdered By: Lety Mcdonald on 08-06-2023 Erythrocyte distribution width (RBC) [Entitic vol] 44.1 fL 35.1-43.9 [facility] Erythrocyte distribution width (RBC) [Ratio] 12.6 % 11.6-14.6 [facility] Immature granulocytes/100 WBC (Bld) 0.600 % 0.0-0.9 [facility] Comment on above: IG% - Immature Granu locytes (promyelocytes, myelocytes and metamyelocytes) > 1% indicates that a LEFT SHIFT is Present. MCH (RBC) [Entitic mass] 31.4 pg 27.0-32.0 [facility] Nucleated RBC/100 WBC (Bld) [Ratio] 0 % 0-5 [facility] MCHC Auto (RBC) [Mass/Vol]Or dered By: Lety Mcdonald on 08-06-2023 MCHC (RBC) [Mass/Vol] 32.8 g/dL 32-36 [facility] No Panel InformationOrdered By: Lety Mcdonald on 08-06-2023 Estimated GFR (MDRD) Amer 78 mL/min >60 [facility] Comment on above: GFR Calc Estimated GFR (MDRD) Non-Af Amer 65 mL/min >60 [facility] Comment on above: Non- GFR Calc Thyroid Stimulating Hormone (TSH) 3.55 uIU/mL 0.358-3.74 [facility] Vitamin D 25-Hydroxy 23.7 ng/mL [facility] Comment on above: Vitamin D 25(OH) Sta tus Range Deficiency <20 ng/mL (50nmol/L) Insufficiency 20 - 30 ng/mL (50 - 75 nmol/L) Sufficiency 30 - 100 ng/mL (75 - 250 nmol/L) Toxicity >100 ng/mL (>250 nmol/L) Platelets bldOrdered By: Jacek Mcdonald on 08-06-2023 Platelets (Bld) [#/Vol] 192 10*3/uL 150-450 [facility] Serum or plasma calcium danielle urement (mass/volume)Ordered By: Lety Mcdonald on 08-06-2023 Calcium [Mass/Vol] 8.9 mg/dL 8.5-10.1 [facility] Serum or plasma creatinine m easurement (mass/volume)Ordered By: Lety Mcdonald on 08-06-2023 Creatinine [Mass/Vol] 1.15 mg/dL 0.70-1.30 [facility] Comment on above: The validity of the calculated GFR & GFRAA in patients over 70 years has not been determined. Clinical correlation is essential. Serum or plasma urea nitroge n measurement (mass/volume)Ordered By: Lety Mcdonald on 08-06-2023 Urea nitrogen [Mass/Vol] 24 mg/dL 06-03 [facility] Thin prep Papanicolaou smear with manual screeningOrdered By: Lety Mcdonald on 08-06-2023 Thin prep Papanicolaou smear with manual screening 5 5-15 [facility] Basophil percentageOrdered B y: Proctorlima Stanton on 08-04-2023 Bilirubin [Mass/Vol] 0.60 mg/dL 0.20-1.00 [facility] Comment on above: For patients on eltr ombopag therapy, use of Dimension [place] TBIL is not recommended. Cholesterol [Mass/Vol] 111 mg/dL <200 [facility] Comment on above: <200 mg/dL Desirable 200-240 mg/dL Borderline >240 mg/dL High Risk Protein [Mass/Vol] 7.1 g/dL 6.4-8.2 [facility] Triglyceride [Mass/Vol] 123 mg/dL <199 [facility] Comment on above: The drugs N-Acetylcy steine and Metamizole may falsely depress this assay.Serum Triglycerides Reference Interval Normal <150 mg/dL Borderline high 150 - 199 mg/dL High 200 - 499 mg/dL Very High > or = 500 mg/dL Direct bilirubinOrdered By: Parag Stanton on 08-04-2023 Bilirubin.direct [Mass/Vol] 0.12 mg/dL 0.00-0.30 [facility] - Chemistry and C hemistry - challengeOrdered By: Parag Stanton on 08-04-2023 ALP [Catalytic activity/Vol] 62 U/L 45-117 [facility] ALT [Catalytic activity/Vol] 31 U/L 16-61 [facility] Globulin (S) [Mass/Vol] 3.6 g/dL 2.2-4.2 [facility] No Panel InformationOrdered By: Parag Stanton on 08-04-2023 Prostate Specific Antigen Total 3.27 ng/mL 0.0-4.0 [facility] Comment on above: This test was perfor med using the TPSA assay method for the[facility] chemistry system. Values obtained with differentassay methods cannot be used interchangably.When changing PSA assays in the course of monitoring apatient, additional sequential testing should be carriedout to confirm baseline values. Serum or plasma albumin danielle urement (mass/volume)Ordered By: Parag Stanton on 08-04-2023 Albumin [Mass/Vol] 3.5 g/dL 3.2-5.0 [facility] Serum or plasma cholesterol in HDL measurement (mass/volume)Ordered By: Parag Stanton on 08-04-2023 Cholesterol in HDL [Mass/Vol] 35 mg/dL >40 [facility] Comment on above: The drugs N-Acetylcy steine and Metamizole may falsely depress this assay. Reference Range HDL <40 mg/dL Low HDL Cholesterol HDL >or= 60 mg/dL High HDL Cholesterol Serum or plasma cholesterol in VLDL measurement (mass/volume)Ordered By: Parag Stanton on 08-04-2023 Cholesterol in VLDL [Mass/Vol] 25 mg/dL 5-40 [facility] Serum or plasma low density lipoprotein (LDL) cholesterol measurement (mass/volume)Ordered By: Parag Stanton on 08-04-2023 Cholesterol in LDL [Mass/Vol] 51 mg/dL 0-130 [facility] Thin prep Papanicolaou smear with manual screeningOrdered By: Parag Stanton on 08-04-2023 Thin prep Papanicolaou smear with manual screening 15 U/L 15-37 [facility] Basophil percentageOrdered B y: Dr. Lynn on 03-11-2023 Testosterone [Mass/Vol] 188.15 ng/dL [facility] Comment on above: CENTRAL 90% REFERENC E RANGES MALE AGE <50 197.44 - 669.58 ng/dL MALE AGE > or = 50 187.72 - 684.19 ng/dL FEMALE AGE <50 8.38 - 35.01 ng/dL FEMALE AGE > or = 50 <7.00 - 35.92 ng/dL Effective as of 06/12/21 No Panel InformationOrdered By: Dr. Lynn on 03-11-2023 Prostate Specific Antigen Total 2.21 ng/mL 0.0-4.0 [facility] Comment on above: This test was perfor med using the TPSA assay method for the[facility] chemistry system. Values obtained with differentassay methods cannot be used interchangably.When changing PSA assays in the course of monitoring apatient, additional sequential testing should be carriedout to confirm baseline values. Basophil percentageOrdered B y: Dr. Stanton on 01-29-2023 Bilirubin [Mass/Vol] 0.50 mg/dL 0.20-1.00 [facility] Comment on above: For patients on eltr ombopag therapy, use of Dimension [place] TBIL is not recommended. Cholesterol [Mass/Vol] 127 mg/dL <200 [facility] Comment on above: <200 mg/dL Desirable 200-240 mg/dL Borderline >240 mg/dL High Risk Protein [Mass/Vol] 7.6 g/dL 6.4-8.2 [facility] Triglyceride [Mass/Vol] 129 mg/dL <199 [facility] Comment on above: The drugs N-Acetylcy steine and Metamizole may falsely depress this assay.Serum Triglycerides Reference Interval Normal <150 mg/dL Borderline high 150 - 199 mg/dL High 200 - 499 mg/dL Very High > or = 500 mg/dL Direct bilirubinOrdered By: Dr. Stanton on 01-29-2023 Bilirubin.direct [Mass/Vol] 0.15 mg/dL 0.00-0.30 [facility] - Chemistry and C hemistry - challengeOrdered By: Dr. Stanton on 01-29-2023 ALP [Catalytic activity/Vol] 65 U/L 45-117 [facility] ALT [Catalytic activity/Vol] 27 U/L 16-61 [facility] Globulin (S) [Mass/Vol] 3.8 g/dL 2.2-4.2 [facility] Serum or plasma albumin danielle urement (mass/volume)Ordered By: Dr. Stanton on 01-29-2023 Albumin [Mass/Vol] 3.8 g/dL 3.2-5.0 [facility] Serum or plasma cholesterol in HDL measurement (mass/volume)Ordered By: Dr. Stanton on 01-29-2023 Cholesterol in HDL [Mass/Vol] 37 mg/dL >40 [facility] Comment on above: The drugs N-Acetylcy steine and Metamizole may falsely depress this assay. Reference Range HDL <40 mg/dL Low HDL Cholesterol HDL >or= 60 mg/dL High HDL Cholesterol Serum or plasma cholesterol in VLDL measurement (mass/volume)Ordered By: Dr. Stanton on 01-29-2023 Cholesterol in VLDL [Mass/Vol] 26 mg/dL 5-40 [facility] Serum or plasma low density lipoprotein (LDL) cholesterol measurement (mass/volume)Ordered By: Dr. Stanton on 01-29-2023 Cholesterol in LDL [Mass/Vol] 64 mg/dL 0-130 [facility] Thin prep Papanicolaou smear with manual screeningOrdered By: Dr. Stanton on 01-29-2023 Thin prep Papanicolaou smear with manual screening 13 U/L 15-37 [facility] No Panel Informationon 09-10 Prostate Specific Antigen Total 2.18 ng/mL 0.0-4.0 [facility] Work Phone: Comment on above: This test was perfor med using the TPSA assay method for the[facility] chemistry system. Values obtained with differentassay methods cannot be used interchangably.When changing PSA assays in the course of monitoring apatient, additional sequential testing should be carriedout to confirm baseline values. Thyroid Stimulating Hormone (TSH) 3.47 uIU/mL 0.358-3.74 [facility] Work Phone: Basophil percentageon 2021 Bilirubin [Mass/Vol] 0.60 mg/dL 0.20-1.00 [facility]: Comment on above: For patients on eltr ombopag therapy, use of Dimension [place] TBIL is not recommended. Cholesterol [Mass/Vol] 133 mg/dL <200 [facility] Work Phone: Comment on above: <200 mg/dL Desirable 200-240 mg/dL Borderline >240 mg/dL High Risk Protein [Mass/Vol] 7.7 g/dL 6.4-8.2 [facility] Work Phone: Triglyceride [Mass/Vol] 106 mg/dL <199 [facility] Work Phone: Comment on above: The drugs N-Acetylcy steine and Metamizole may falsely depress this assay.Serum Triglycerides Reference Interval Normal <150 mg/dL Borderline high 150 - 199 mg/dL High 200 - 499 mg/dL Very High > or = 500 mg/dL Direct bilirubinon 2 Bilirubin.direct [Mass/Vol] 0.14 mg/dL 0.00-0.30 [facility] Work Phone: Laboratory - Chemistry and C hemistry - challengeon 08-20-2022 ALP [Catalytic activity/Vol] 64 U/L 45-117 [facility] Work Phone: ALT [Catalytic activity/Vol] 44 U/L 16-61 [facility] Work Phone: Globulin (S) [Mass/Vol] 4.2 g/dL 2.2-4.2 [facility] Work Phone: Serum or plasma albumin danielle urement (mass/volume)on 08-20-2022 Albumin [Mass/Vol] 3.5 g/dL 3.2-5.0 [facility] Work Phone: Serum or plasma cholesterol in HDL measurement (mass/volume)on 08-20-2022 Cholesterol in HDL [Mass/Vol] 40 mg/dL >40 [facility] Work Phone: Comment on above: The drugs N-Acetylcy steine and Metamizole may falsely depress this assay. Reference Range HDL <40 mg/dL Low HDL Cholesterol HDL >or= 60 mg/dL High HDL Cholesterol Serum or plasma cholesterol in VLDL measurement (mass/volume)on 08-20-2022 Cholesterol in VLDL [Mass/Vol] 21 mg/dL 5-40 [facility] Work Phone: Serum or plasma low density lipoprotein (LDL) cholesterol measurement (mass/volume)on 08-20-2022 Cholesterol in LDL [Mass/Vol] 72 mg/dL 0-130 [facility] Work Phone: Thin prep Papanicolaou smear with manual screeningon 08-20-2022 Thin prep Papanicolaou smear with manual screening 16 U/L 15-37 [facility] Work Phone: Office Visiton 04-15-2017 Documentation of current medications (procedure) Done Invalid Interpretation Code [employer] Work Phone: Fall risk assessment No Invalid Interpretation Code [employer] Work Phone: [phone] Clinical Lists Update: Prelo stepdown nurse 04-11-2017 Left ventricular Ejection fraction 55-60 Invalid Interpretation Code [employer] Work Phone: [phone] Lab Report: Lipid Profileon 04-10-2017 Cholesterol 118 mg/dL Invalid Interpretation Code 200 [email or web address] Work Phone: [phone] HDL Cholesterol 32 mg/dL Low [employer] Work Phone: [phone] LDL Cholesterol 62 mg/dL Invalid Interpretation Code 0-130 [employer] Work Phone: [phone] Triglyceride 122 mg/dL Invalid Interpretation Code [email or web address] Work Phone: [phone] very low density lipoproteins 24 mg/dL Invalid Interpretation Code 5-40 [email or web address] Work Phone: [phone] Lab Report: Liver Profileon 04-10-2017 Alanine aminotransferase (ALT) 26 U/L Invalid Interpretation Code 12-78 [employer] Work Phone: [phone] Albumin 3.6 g/dL Invalid Interpretation Code 3.4-5.0 [email or web address] Work Phone: [phone] Alkaline phosphatase (ALP) 60 U/L Invalid Interpretation Code 45-117 [employer] Work Phone: [phone] ALP (Bld) [Catalytic activity/Vol] 60 U/L 45-117 [email or web address] Work Phone: [phone] Aspartate aminotransferase (AST) 13 U/L Low 15-37 [email or web address] Work Phone: [phone] Bilirubin (direct) 0.09 mg/dL Invalid Interpretation Code 0.00-0.30 [email or web address] Work Phone: [phone] Bilirubin (total) 0.60 mg/dL Invalid Interpretation Code 0.20-1.00 [email or web address] Work Phone: [phone] Globulin 3.8 g/dL High 2.3-3.5 [employer] Work Phone: [phone] Globulin (S) [Mass/Vol] 3.8 g/dL High 2.3-3.5 [facility] [employer] Work Phone: [phone] Protein 7.4 g/dL Invalid Interpretation Code 6.4-8.2 [email or web address] Work Phone: [phone]) Office Visit: [facility] 10-14-20 16 Dietary management education, guidance, and counseling (procedure) yes Invalid Interpretation Code [email or web address] Work Phone: [phone] Documentation of current medications (procedure) Done Invalid Interpretation Code [email or web address] Work Phone: [phone] Lab Report: Lipid Profileon 10-08-2016 Cholesterol [Mass/Vol] 117 mg/dL 200 [facility] [employer] Work Phone: [phone] Cholesterol in HDL [Mass/Vol] 33 mg/dL Low [employer] Work Phone: [phone] Cholesterol in LDL [Mass/Vol] 63 mg/dL 0-130 [facility] Work Phone: [phone] Lipoprotein.pre-beta [Mass/Vol] 21 mg/dL 5-40 [facility] Work Phone: [phone] Triglyceride [Mass/Vol] 104 mg/dL [facility] Work Phone: [phone] Lab Report: Liver Profileon 10-08-2016 Albumin [Mass/Vol] 4.0 g/dL 3.4-5.0 [facility] Work Phone: [phone] ALP (Bld) [Catalytic activity/Vol] 52 U/L 45-117 [facility] Work Phone: [phone] ALT [Catalytic activity/Vol] 30 U/L 12-78 [facility] Work Phone: [phone] AST [Catalytic activity/Vol] 16 U/L 15-37 [facility] Work Phone: [phone] Bilirubin [Mass/Vol] 0.50 mg/dL 0.20-1.[address] [facility] Work Phone: [phone] Bilirubin.direct [Mass/Vol] 0.12 mg/dL 0.00-0.30 [facility] Work Phone: [phone] Globulin (S) [Mass/Vol] 3.6 g/dL High 2.3-3.5 [facility] Work Phone: [phone] Protein [Mass/Vol] 7.6 g/dL 6.4-8.2 [facility] Work Phone: [phone] Office Visiton 04-11-2016 Tobacco smoking status NHIS Never smoker [facility] Work Phone: [phone] Tobacco use CPHS Never smoker Invalid Interpretation Code [facility] Work Phone: [phone] Lab Report: Basic Metabolic Profile (BMP)on 11-29-2015 Anion gap 6 mmol/L Invalid Interpretation Code - [facility] Work Phone: [phone] Anion gap [Moles/Vol] 6 mmol/L 5-15 [facility] Work Phone: [phone] Calcium [Mass/Vol] 9.0 mg/dL Invalid Interpretation Code 8.5-10.1 [facility] Work Phone: [phone] Chloride [Moles/Vol] 104 mmol/L Invalid Interpretation Code 98-107 [facility] Work Phone: [phone] CO2 29.0 mmol/L Invalid Interpretation Code 21.0-32.0 [facility] Work Phone: [phone] CO2 (BldV) [Partial pressure] 29.0 mmol/L 21.0-32.0 [facility] Work Phone: [phone] Creatinine [Mass/Vol] 1.02 mg/dL Invalid Interpretation Code 0.70-1.30 [facility] Work Phone: [phone] eGFR (non-black) 92 mL/min/{1.73_m2} Invalid Interpretation Code >60 [facility] Work Phone: [phone] EST GFR - AA 92 mL/min >60 [facility] Work Phone: [phone] GFR/1.73 sq M predicted among non-blacks MDRD (S/P/Bld) [Vol rate/Area] 76 mL/min/{1.73_m2} Invalid Interpretation Code >60 [facility] Work Phone: [phone] Glucose 100 mg/dL Invalid Interpretation Code 70-110 [facility] Work Phone: [phone] Glucose [Mass/Vol] 100 mg/dL 70-110 [facility] Work Phone: [phone] Potassium [Moles/Vol] 4.4 mmol/L Invalid Interpretation Code 3.5-5.1 [facility] Work Phone: [phone] Sodium [Moles/Vol] 139 mmol/L Invalid Interpretation Code 136-145 [facility] Work Phone: [phone] Urea nitrogen [Mass/Vol] 17 mg/dL Invalid Interpretation Code 7-18 [facility] Work Phone: [phone] Urea nitrogen/Creatinine [Mass ratio] 16.7 RATIO Invalid Interpretation Code 10-20 [facility] Work Phone: [phone] Replaced Document: [employer] E CG Observationson 2015 EKG QRS axis 10 deg [email or web address] Work Phone: [phone] electrocardiogram interpretation Sinus Rhythm -RSR(V1) -nondiagnostic. PROBABLY NORMAL Invalid Interpretation Code [email or web address] Work Phone: GE use only - for [employer] import when terms are not otherwise specified 438 ms Invalid Interpretation Code [email or web address] Work Phone: [phone] Interpretation Sinus Rhythm -RSR(V1 ) -nondiagnostic. PROBABLY NORMAL [email or web address] Work Phone: P [place] 43 deg [email or web address] Work Phone: [phone] P wave axis, electrocardiogram 43 deg Invalid Interpretation Code [email or web address] Work Phone: [phone] NV Interval 184 ms [email or web address] Work Phone: [phone] NV interval, electrocardiogram 184 ms Invalid Interpretation Code [email or web address] Work Phone: [phone] Pulse (Heart Rate) 65 /min Invalid Interpretation Code [email or web address] Work Phone: QRS axis, electrocardiogram 10 deg Invalid Interpretation Code [email or web address] Work Phone: [phone] QRS Duration 90 ms [email or web address] Work Phone: [phone] QRS duration, electrocardiogram 90 ms Invalid Interpretation Code [email or web address] Work Phone: [phone] QT Interval new path ms [email or web address] Work Phone: [phone] QT interval, electrocardiogram new path ms Invalid Interpretation Code [email or web address] Work Phone: QTc Arredondo 438 ms [email or web address] Work Phone: T [place] 17 deg [email or web address] Work Phone: [phone] T wave axis, electrocardiogram 17 deg Invalid Interpretation Code [email or web address] Work Phone: [phone] Office Visiton 03-30-2015 cardiac risk group C Invalid Interpretation Code [email or web address] Work Phone: [phone] General cardiovascular disease 10Y risk [#] Clarence.Ignacio'Agocamila N/A Invalid Interpretation Code [email or web address] Work Phone: [phone] Lab Report: CBC W/Diff, Auto matedon 03-28-2015 Absolute Neut 3.2 X10 3/UL 2.0-7.7 [facility] Work Phone: Absolute Neutrophil count 3.2 X10 3/UL Invalid Interpretation Code 2.0-7.7 [facility] Work Phone: Basophils/100 leukocytes 0.4 % Invalid Interpretation Code 0-1 [facility] Work Phone: Basophils/100 WBC (Bld) 0.4 % 0-1 [facility] Work Phone: Eosinophils/100 leukocytes 2.4 % Invalid Interpretation Code 0-5 [facility] Work Phone: Eosinophils/100 WBC (Bld) 2.4 % 0-5 [facility] Work Phone: [phone] Erythrocyte distribution width (RBC) [Ratio] 42.5 fL 35.1-43.9 [facility] Work Phone: [phone] Erythrocytes (RBC) 4.56 10*6/uL Low 4.6-6.[address] [facility] Work Phone: [phone] Hematocrit (Bld) [Volume fraction] 42.2 % 40-54 [facility] Work Phone: Hematocrit (HCT) 42.2 % Invalid Interpretation Code 40-54 [facility] Work Phone: Hemoglobin (Bld) [Mass/Vol] 14.0 g/dL Invalid Interpretation Code 13.0-16.5 [facility] Work Phone: Lymphocytes 1.08 X10 3/UL Invalid Interpretation Code 0.83-4.51 [facility] Work Phone: Lymphocytes (Bld) [#/Vol] 1.08 X10 3/UL 0.83-4.51 [facility] Work Phone: Lymphocytes/100 leukocytes 21.8 % Invalid Interpretation Code 19-41 [facility] Work Phone: Lymphocytes/100 WBC (Bld) 21.8 % 19-41 [facility] Work Phone: MCH 30.7 pg Invalid Interpretation Code 27.0-32.0 [facility] Work Phone: MCH (RBC) [Entitic mass] 30.7 pg 27.0-32.0 [facility] Work Phone: [phone] MCHC 33.2 G/GL Invalid Interpretation Code 32-36 [facility] Work Phone: [phone] MCHC (RBC) [Mass/Vol] 33.2 G/GL 32-36 [facility] Work Phone: [phone] MCV 92.5 fL Invalid Interpretation Code 80-94 [facility] Work Phone: [phone] MCV (RBC) [Entitic vol] 92.5 fL 80-94 [facility] Work Phone: [phone] Monocytes/100 leukocytes 10.5 % High 0-10 [facility] Work Phone: [phone] Monocytes/100 WBC (Bld) 10.5 % High 0-10 [facility] Work Phone: [phone] Neutrophils/100 leukocytes 64.7 % Invalid Interpretation Code 47-70 [facility] Work Phone: Neutrophils/100 WBC (Bld) 64.7 % 47-70 [facility] Work Phone: [phone] Platelet mean volume (Bld) [Entitic vol] 10.7 fL 6.2-12.0 [facility] Work Phone: [phone] Platelets 163 10*3/mm3 Invalid Interpretation Code 150-450 [facility] Work Phone: Platelets (Bld) [#/Vol] 163 10*3/mm3 150-450 [facility] Work Phone: [phone] PMV by Hipolito 10.7 fL Invalid Interpretation Code 6.2-12.0 [facility] Work Phone: [phone] RBC (Bld) [#/Vol] 4.56 10*6/uL Low 4.6-6.2 [facility] Work Phone: [phone] red blood cell distribution width, size density 42.5 fL Invalid Interpretation Code 35.1-43.9 [facility] Work Phone: [phone] WBC (Bld) [#/Vol] 5.0 10*3/uL 4.4-11.0 [facility] Work Phone: [phone] WBC (Leukocytes) 5.0 10*3/uL Invalid Interpretation Code 4.4-11.0 [facility] Work Phone: [phone] Lab Report: Thyroid Stim Hor ama (TSH)on 03-28-2015 TSH Qn 2.63 u[iU]/mL Invalid Interpretation Code 0.358-3.74 [facility] Work Phone: [phone] Replaced Document: Rafael Topete CG Observationson 09-16-2014 Pulse (Heart Rate) 439 ms Invalid Interpretation Code [facility] Work Phone: [phone] Clinical Lists Update: Prelo stepdown nurse 03-17-2013 Band form neutrophils/100 WBC (Bld) 63.8 % [facility] Work Phone: [phone] basophils as percent of blood leukocytes, manual count 0.8 % Invalid Interpretation Code [facility] Work Phone: [phone] eosinophils as percent of blood leukocytes, manual count 2.5 % Invalid Interpretation Code [facility] Work Phone: [phone] neutrophils, band form as percent of blood leukocytes, manual count 63.8 % Invalid Interpretation Code [facility] Work Phone: [phone] Lab Report: PTon 10-19-2012 INR Coag (PPP) [Relative time] 1.1 {INR} Normal [facility] Work Phone: [phone] INR in blood by coagulation 1.1 {INR} Normal [facility] Work Phone: [phone] prothrombin time, actual/normal, ratio 13.3 SECONDS Normal 11.9-14.4 [facility] Work Phone: [phone] PTP 13.3 SECONDS Normal 11.9-14.4 [facility] Work Phone: [phone] Lab Report: PTTon 10-19-2012 aPTT Coag (Bld) [Time] 25.8 s Normal 24.1-36.2 [facility] Work Phone: [phone] Clinical Lists Update: Prelo eileen 09-27-2012 Erythrocyte distribution width (RBC) [Ratio] 13.7 % [facility] Work Phone: [phone] MCHC 34.5 % Invalid Interpretation Code [facility] Work Phone: [phone] MCHC (RBC) [Mass/Vol] 34.5 % [facility] Work Phone: [phone] RDW-CA 13.7 % Invalid Interpretation Code [facility] Work Phone: [phone] Vital Signs Date Time Vital Sign Value Performing Clinician Faci lity 04-18-2025 08:42-0400 Body height 182.88 cm Cordell Escalante MD Work Phone: [facility] 04-18-2025 08:42-0400 Body mass index (BMI) [Ratio] 29.8 kg/m2 Cordell Escalante MD Work Phone: [facility] 04-18-2025 08:42-0400 Body weight 99.79 kg Cordell Escalante MD Work Phone: [facility] 04-18-2025 08:42-0400 Diastolic blood pressure 88 mm[Hg] Cordell Escalante MD Work Phone: [facility] 04-18-2025 08:42-0400 Heart rate 89 /min Cordell Escalante MD Work Phone: [facility] 04-18-2025 08:42-0400 Respiratory rate 18 /min Cordell Escalante MD Work Phone: [facility] 04-18-2025 08:42-0400 Systolic blood pressure 139 mm[Hg] Cordell Escalante MD Work Phone: [facility] 02-24-2025 22:48-0400 Body temperature 98.9 [degF] Cordell Escalante MD Work Phone: [facility] 02-24-2025 22:48-0400 Diastolic blood pressure 73 mm[Hg] Cordell Escalante MD Work Phone: [facility] 02-24-2025 22:48-0400 Heart rate 92 /min Cordell Escalante MD Work Phone: [facility] 02-24-2025 22:48-0400 Respiratory rate 18 /min Cordell Escalante MD Work Phone: [facility] 02-24-2025 22:48-0400 SaO2% (BldA) [Mass fraction] 97 % Cordell Escalante MD Work Phone: [facility] 02-24-2025 22:48-0400 Systolic blood pressure 136 mm[Hg] Cordell Escalante MD Work Phone: [facility] 02-24-2025 19:52-0400 Body height 182.88 cm Cordell Escalante MD Work Phone: [facility] 02-24-2025 19:52-0400 Body mass index (BMI) [Ratio] 29.4 kg/m2 Cordell Escalante MD Work Phone: [facility] 02-24-2025 19:52-0400 Body weight 98.29 kg Cordell Escalante MD Work Phone: [facility] 12-24-2024 10:59-0500 Body height 182.88 cm Cordell Escalante MD Work Phone: [facility] 12-24-2024 10:59-0500 Body mass index (BMI) [Ratio] 29.1 kg/m2 Cordell Escalante MD Work Phone: [facility] 12-24-2024 10:59-0500 Body weight 97.52 kg Cordell Escalante MD Work Phone: [facility] 12-24-2024 10:59-0500 Diastolic blood pressure 87 mm[Hg] Cordell Escalante MD Work Phone: [facility] 12-24-2024 10:59-0500 Heart rate 71 /min Cordell Escalante MD Work Phone: [facility] 12-24-2024 10:59-0500 Respiratory rate 18 /min Cordell Escalante MD Work Phone: [facility] 12-24-2024 10:59-0500 SaO2% (BldA) [Mass fraction] 98 % Cordell Escalante MD Work Phone: [facility] 12-24-2024 10:59-0500 Systolic blood pressure 127 mm[Hg] Cordell Escalante MD Work Phone: [facility] 03-05-2024 11:00-0400 Body height 182.88 cm DO Janell Romeo Work Phone: [facility] 03-05-2024 11:00-0400 Body mass index (BMI) [Ratio] 28.2 kg/m2 DO Janell Romeo Work Phone: [facility] 03-05-2024 11:00-0400 Body weight 94.34 kg DO Janell Romeo Work Phone: [facility] 03-05-2024 11:00-0400 Diastolic blood pressure 78 mm[Hg] DO Janell Romeo Work Phone: [facility] 03-05-2024 11:00-0400 Heart rate 62 /min DO Janell Romeo Work Phone: [facility] 03-05-2024 11:00-0400 Respiratory rate 18 /min DO Janell Romeo Work Phone: [facility] 03-05-2024 11:00-0400 Systolic blood pressure 120 mm[Hg] DO Janell Romeo Work Phone: [facility] 08-06-2023 10:52-0400 Body height 182.88 cm DO Janell Romeo Work Phone: [facility] 08-06-2023 10:52-0400 Body mass index (BMI) [Ratio] 28.7 kg/m2 DO Janell Romeo Work Phone: [facility] 08-06-2023 10:52-0400 Body weight 96.16 kg DO Janell Romeo Work Phone: [facility] 08-06-2023 10:52-0400 Diastolic blood pressure 75 mm[Hg] DO Janell Romeo Work Phone: [facility] 08-06-2023 10:52-0400 Heart rate 61 /min DO Janell Romeo Work Phone: [facility] 08-06-2023 10:52-0400 Respiratory rate 18 /min DO Janell Romeo Work Phone: [facility] 08-06-2023 10:52-0400 SaO2% (BldA) [Mass fraction] 99 % DO Janell Romeo Work Phone: [facility] 08-06-2023 10:52-0400 Systolic blood pressure 122 mm[Hg] DO Janell Romeo Work Phone: [facility] 01-31-2023 15:04-0400 Body height 182.88 cm DO Janell Romeo Work Phone: [facility] 01-31-2023 15:04-0400 Body mass index (BMI) [Ratio] 28.2 kg/m2 DO Janell Romeo Work Phone: [facility] 01-31-2023 15:04-0400 Body weight 94.34 kg DO Janell Romeo Work Phone: [facility] 01-31-2023 15:04-0400 Diastolic blood pressure 67 mm[Hg] DO Janell Romeo Work Phone: [facility] 01-31-2023 15:04-0400 Heart rate 73 /min DO Janell Romeo Work Phone: [facility] 01-31-2023 15:04-0400 Respiratory rate 18 /min DO Janell Romeo Work Phone: [facility] 01-31-2023 15:04-0400 Systolic blood pressure 125 mm[Hg] DO Janell Romeo Work Phone: [facility] 11-10-2022 12:45-0500 Diastolic blood pressure 75 mm[Hg] Dr. Rom Mendez Work Phone: [facility] 11-10-2022 12:45-0500 Heart rate 84 /min Dr. Rom Mendez Work Phone: [facility] 11-10-2022 12:45-0500 Respiratory rate 16 /min Dr. Rom Mendez Work Phone: [facility] 11-10-2022 12:45-0500 SaO2% (BldA) [Mass fraction] 96 % Dr. Rom Mendez Work Phone: [facility] 11-10-2022 12:45-0500 Systolic blood pressure 149 mm[Hg] Dr. Rom Mendez Work Phone: [facility] 11-10-2022 10:37-0500 Body height 182.[address] Rom Mendez Work Phone: [facility] Work Phone: 11-10-2022 10:37-0500 Body mass index (BMI) [Ratio] 27.9 kg/m2 Dr. Rom Mendez Work Phone: [facility] 11-10-2022 10:37-0500 Body temperature 97.4 [degF] Dr. Rom Mendez Work Phone: [facility] 11-10-2022 10:37-0500 Body weight 93.[address] Rom Mendez Work Phone: [facility] 08-22-2022 12:28-0400 Body height 182.[address] Rom Mendez Work Phone: [facility] Work Phone: 08-22-2022 12:28-0400 Body mass index (BMI) [Ratio] 28.2 kg/m2 Dr. Rom Mendez Work Phone: [facility] Work Phone: 08-22-2022 12:28-0400 Body weight 94.[address] Rom Mendez Work Phone: [facility] Work Phone: 08-22-2022 12:28-0400 Diastolic blood pressure 62 mm[Hg] Dr. Rom Mendez Work Phone: [facility] Work Phone: 08-22-2022 12:28-0400 Heart rate 68 /min Dr. Rom Mendez Work Phone: [facility] Work Phone: 08-22-2022 12:28-0400 Respiratory rate 16 /min Dr. Rom Mendez Work Phone: [facility] Work Phone: 08-22-2022 12:28-0400 SaO2% (BldA) [Mass fraction] 99 % Dr. Rom Mendez Work Phone: [facility] Work Phone: 08-22-2022 12:28-0400 Systolic blood pressure 132 mm[Hg] Dr. Rom Mendez Work Phone: [facility] Work Phone: 04-15-2017 08:48-0400 BMI (Body Mass Index) 27.66 kg/m2 [facility] Work Phone: 04-15-2017 08:48-0400 Body weight 92.53 kg [facility] Work Phone: 04-15-2017 08:48-0400 BP Diastolic 60 mm[Hg] [facility] Work Phone: 04-15-2017 08:48-0400 BP Systolic 120 mm[Hg] [facility] Work Phone: 04-15-2017 08:48-0400 Height 182.88 cm Lisa Ely [facility] Work Phone: 04-15-2017 08:48-0400 Pulse (Heart Rate) 68 /min Lisa Ely [facility] Work Phone: 04-15-2017 08:48-0400 Respiratory Rate 20 /min Lisa Ely [facility] Work Phone: 04-15-2017 08:48-0400 Weight 92.53 kg Lisa Ely [facility] Work Phone: 10-14-2016 08:54-0500 BMI (Body Mass Index) 27.95 kg/m2 [facility] Work Phone: 10-14-2016 08:54-0500 Body weight 93.49 kg Amara Lee RN [facility] Work Phone: 10-14-2016 08:54-0500 BP Diastolic 80 mm[Hg] Amara Lee RN [facility] Work Phone: 10-14-2016 08:54-0500 BP Systolic 140 mm[Hg] Amara Lee RN [facility] Work Phone: 10-14-2016 08:54-0500 BSA (Body Surface Area) 2.16 m2 Amara Lee RN [facility] Work Phone: 10-14-2016 08:54-0500 Pulse (Heart Rate) 60 /min Amara Lee RN [facility] Work Phone: 10-14-2016 08:54-0500 Respiratory Rate 18 /min Amara Lee RN [facility] Work Phone: 10-14-2016 08:54-0500 Weight 93.49 kg Parag Stanton MD [facility] Work Phone: 04-11-2016 08:06-0400 Height 182.88 cm Amara Lee RN [facility] Work Phone: 10-05-2015 08:45-0500 Heart rate 65 /min Amara Lee RN [facility] Work Phone: 09-16-2014 09:27-0400 Heart rate 439 ms Amara Lee RN [facility] Work Phone: 11-20-2012 09:55-0500 Body Temperature 97.8 [degF] Amara Lee RN [facility] Work Phone: 11-20-2012 09:55-0500 Pulse Oximetry 100 % Amara Lee RN [facility] Work Phone: Encounters Encounter Date Encounter Type Care Provider Facility Start: 05-11-2025 ambulatory [facility] Facility:[facility] Start: 04-18-2025 End: 04-18-2025 Patient encounter procedure Lety Mcdonald [employer]-C -[facility] Work Phone: Start: 04-18-2025 End: 04-18-2025 ambulatory Cordell Escalante MD Work Phone: [facility] Work Phone: Start: 04-18-2025 End: 04-18-2025 ambulatory [facility] Facility:[facility] Start: 04-05-2025 End: 04-05-[address] Nilson Lynn MD -Laboratory Work Phone: Start: 04-05-2025 End: 04-05-2025 ambulatory Nilson Lynn Facility:[facility] Start: 02-24-2025 End: 02-24-2025 Emergency department patient visit Cordell Escalante MD Work Phone: -Emergency Department Work Phone: Start: 01-24-2025 End: 01-24-2025 ambulatory Cordell Escalante MD Work Phone: [facility] Work Phone: Start: 01-24-2025 End: 01-24-[address] Cheri Murcia MD -Laboratory Work Phone: Start: 01-24-2025 End: 01-24-2025 ambulatory [facility] Facility:[facility] Start: 12-24-2024 End: 12-24-2024 Patient encounter procedure Rom Richardson NP-C -[facility] Work Phone: Start: 12-24-2024 End: 12-24-2024 ambulatory Chalon Spike Facility:[facility] Start: 12-24-2024 End: 12-24-2024 Patient encounter procedure Zuleyka [place] -Laboratory Work Phone: Start: 12-24-2024 End: 12-24-2024 ambulatory Zuleyka [place] Facility:[facility] Start: 10-28-2024 End: 10-28-2024 ambulatory CHERI MURCIA MD Facility:[facility] Start: 10-28-2024 End: 10-28-2024 Patient encounter procedure CHERI MURCIA MD [facility] Start: 10-06-2024 End: 10-06-[address] Cheri Murcia MD -[facility] Work Phone: Start: 10-06-2024 End: 10-06-2024 ambulatory Chalon Spike Facility:[facility] Start: 09-28-2024 End: 09-28-2024 ambulatory Zuleyka [place] Facility:[facility] Start: 09-06-2024 End: 09-06-2024 ambulatory Cheri Murcia Facility:[facility] Start: 06-28-2024 ambulatory Chalon Spike Facility:[facility] Start: 06-28-2024 ambulatory Rom Richardson [employer] Facility :[facility] Start: 06-28-2024 End: 06-28-2024 ambulatory Rom Richardson [employer] Facility:[facility] Start: 06-26-2024 End: 06-26-2024 ambulatory Zuleyka [place] Facility:[facility] Start: 06-21-2024 End: 06-21-2024 ambulatory Chalon Spike Facility:[facility] Start: 06-15-2024 ambulatory Chalon Spike Facility:[facility] Start: 06-10-2024 End: 06-11-2024 ambulatory Chalon Spike Facility:[facility] Start: 06-10-2024 End: 06-10-2024 ambulatory Rom Richardson [employer] Facility:[facility] Start: 05-27-2024 End: 05-27-2024 ambulatory Cordell Escalante Facility:[facility] Start: 05-27-2024 End: 05-27-2024 ambulatory Rom H Roof [employer] Facility:[facility] Start: 03-23-2024 End: 03-23-2024 ambulatory DO Janell M Romeo Work Phone: [facility] Work Phone: Start: 03-23-2024 End: 03-23-2024 Patient encounter procedure DO Janelljaskaran Banuelosnger Work Phone: [facility] Start: 03-05-2024 End: 03-05-2024 Patient encounter procedure DO Janell Romeo Work Phone: [facility] Work Phone: Start: 03-04-2024 End: 03-04-2024 ambulatory DO Janell M Romeo Work Phone: [facility] Work Phone: Start: 03-04-2024 End: 03-04-2024 Patient encounter procedure [facility] Start: 08-06-2023 End: 08-06-2023 ambulatory DO Janell M Romeo Work Phone: [facility] Work Phone: Start: 08-06-2023 End: 08-06-2023 Patient encounter procedure DO Janell Romeo Work Phone: [facility] Work Phone: Start: 08-04-2023 End: 08-04-2023 Patient encounter procedure DO [facility] Start: 03-11-2023 End: 03-11-2023 ambulatory DO Janell M Romeo Work Phone: [facility] Work Phone: Start: 03-11-2023 End: 03-11-2023 Patient encounter procedure DO [facility] Walters [facility] Start: 01-31-2023 End: 01-31-2023 Patient encounter procedure DO Janell Walters Work Phone: [facility] Start: 01-29-2023 End: 01-29-2023 ambulatory DO Janell Walters Work Phone: [facility] Work Phone: Start: 01-29-2023 End: 01-29-2023 Patient encounter procedure DO [facility] Start: 12-17-2022 End: 12-17-2022 Patient encounter procedure DO Janell Walters Work Phone: [facility] Start: 11-10-2022 End: 11-10-2022 Emergency department patient visit Dr. Rom Mendez Work Phone: [facility]Emergency Department Start: 11-05-2022 End: 11-05-[address] Rom Mendez Work Phone: [facility] Work Phone: Start: 11-05-2022 End: 11-05-[address] Rom Mendez Work Phone: [facility] Start: 09-10-2022 End: 09-10-[address] Rom Mendez Work Phone: [facility] Work Phone: Start: 09-10-2022 End: 09-10-[address] [facility] Start: 08-22-2022 End: 08-22-[address] Rom Mendez Work Phone: [facility] Start: 08-20-2022 End: 08-20-[address] Rom Mendez Work Phone: [facility] Work Phone: Start: 08-20-2022 End: 08-20-[address] Rom Mendez Work Phone: [facility] Start: 04-11-2016 End: 04-11-2017 Encounter for preprocedural cardiovascular examination Amara Lee RN [facility] Work Phone: Procedures Date Procedure Procedure Detail Performing Clinician Start: 04-18-2025 X-ray of chest, PA a nd lateral views Cordell Escalante MD Work Phone: Start: 04-05-2025 Assay of prostate specific antigen total Cordell Escalante MD Work Phone: Comment on above: This test was perfor med using the [employer] tPSA method. Measured values of a patient sample can vary depending on the testing procedure used. PSA values determined on patient samples by different testing procedures cannot be used interchangeably. If there is a change in PSA assays while monitoring therapy, sequential testing should be performed to confirm baseline values. Start: 02-24-2025 Estimated creatinine clearance Cordell Escalante MD Work Phone: Start: 02-24-2025 CT of soft tissues o f neck with contrast Cordell Escalante MD Work Phone: Start: 02-24-2025 Streptococcus pyogen es rRNA assay Cordell Escalante MD Work Phone: Start: 01-24-2025 Vitamin D, 25-hydrox y measurement Cordell Escalante MD Work Phone: Comment on above: Vitamin D StatusDefi ciency: <20 ng/mL (50nmol/L)Insufficiency: 20-30 ng/mL (50-75 nmol/L)Sufficiency: 30-100 ng/mL (75-250 nmol/L)Toxicity: >100 ng/mL (>250 nmol/L) Start: 12-24-2024 Assay of prostate specific antigen total Cordell Escalante MD Work Phone: Comment on above: This test was perfor med using the TPSA assay method for [employer] chemistry system. Values obtained with differentassay methods cannot be used interchangably.When changing PSA assays in the course of monitoring apatient, additional sequential testing should be carriedout to confirm baseline values. Start: 10-06-2024 Radionuclide thyroid imaging Cordell Escalante MD Work Phone: Start: 03-23-2024 PET study for localization of tumor DO Janell Walters Work Phone: Start: 11-10-2022 Plain chest X-ray Dr. Omar Mendez Work Phone: Start: 11-05-2022 Plain chest X-ray Dr. Omar Mendez Work Phone: Start: 04-15-2017 End: 04-15-2017 Documentation of current medications Lisa Ely Start: 04-07-2017 End: 04-15-2017 *Hepatic Function Panel Linda Donald Start: 04-07-2017 End: 04-15-2017 Lipid panel [AGGREGATE] Linda Donald Start: 10-14-2016 End: 10-14-2016 Dietary management education, guidance, and counseling Amara Lee RN Start: 10-14-2016 End: 10-14-2016 Documentation of current medications Amara Lee RN Start: 10-08-2016 End: 10-08-2016 *Hepatic Function Panel Linda Donald Start: 10-08-2016 End: 10-08-2016 Lipid panel [AGGREGATE] Linda Donald Start: 04-11-2016 End: 04-11-2016 Follow Up Appt 6 months Linda Donald Start: 04-11-2016 End: 04-11-2016 MMM Parag Stanton MD Start: 04-11-2016 End: 04-19-2016 Nuclear stress test -Lexiscan Parag Stanton MD Start: 04-01-2016 End: 04-09-2016 *Hepatic Function Panel Linda Donald Start: 04-01-2016 End: 04-09-2016 Lipid panel [AGGREGATE] iLnda Donald Start: 11-29-2015 End: 11-29-2015 *BMP Parag Stanton MD Start: 11-29-2015 End: 11-29-2015 Follow Up Appt 3 months Linda Donald Start: 11-29-2015 End: 11-29-2015 Follow Up BP Check Parag Stanton MD Start: 11-29-2015 End: 11-29-2015 MMM Parag Stanton MD Start: 10-05-2015 End: 10-05-2015 TRACK REPAIR LABORER Tina Gant PA-C Work Phone: Start: 10-05-2015 End: 10-05-2015 Electrocardiogram, complete Tina Gant PA-C Work Phone: Start: 10-05-2015 End: 10-05-2015 Follow Up Appt 6 months Tina lopez PA-C Work Phone: Start: 10-05-2015 End: 11-29-2015 Follow Up Appt Other Tina amato PA-C Work Phone: Start: 09-28-2015 End: 10-02-2015 *Hepatic Function Panel Linda Donald Start: 09-28-2015 End: 10-02-2015 Lipid panel [AGGREGATE] Linda Donald Start: 03-30-2015 End: 03-31-2015 Documentation of current medications Parag Stanton MD Start: 03-30-2015 End: 03-30-2015 Follow Up Appt 6 months Linda Donald Start: 03-30-2015 End: 03-30-2015 MMLinda Stanton MD Start: 03-17-2015 End: 03-28-2015 *Hepatic Function Panel Linda Donald Start: 03-17-2015 End: 03-28-2015 Lipid panel [AGGREGATE] Linda Donald Start: 09-16-2014 End: 09-16-2014 TRACK REPAIR LABORER Tina Gant PA-C Work Phone: Start: 09-16-2014 End: 09-16-2014 Follow Up Appt 6 months Tina lopez PA-C Work Phone: Start: 08-17-2014 End: 09-13-2014 *Hepatic Function Panel Linda Donald Start: 08-17-2014 End: 09-13-2014 Lipid panel [AGGREGATE] Linda Donald Start: 03-15-2014 End: 09-06-2014 *Hepatic Function Panel Linda Donald Start: 03-15-2014 End: 03-15-2014 Follow Up Appt 6 months Linda Donald Start: 03-15-2014 End: 09-06-2014 Lipid panel [AGGREGATE] Linda Donald Start: 03-15-2014 End: 03-15-2014 VICENTE Stanton MD Start: 01-15-2014 End: 03-11-2014 *Hepatic Function Panel Linda Donald Start: 01-15-2014 End: 03-11-2014 Lipid panel [AGGREGATE] Linda Donald Start: 08-18-2013 End: 08-18-2013 TRACK REPAIR LABORER Tina Gant PA-C Work Phone: Start: 08-18-2013 End: 08-18-2013 eRx Transmitted during this visit (Medicare only) Tina Gant PA-C Work Phone: Start: 08-18-2013 End: 08-18-2013 Follow Up Appt 6 months Tina lopez PA-C Work Phone: Start: 07-18-2013 End: 08-16-2013 *Hepatic Function Panel Linda Donald Start: 07-18-2013 End: 08-16-2013 Lipid panel [AGGREGATE] Linda Donald Start: 02-16-2013 End: 02-16-2013 Follow Up Appt 6 months Linda Donald Start: 02-16-2013 End: 02-16-2013 MMM Parag Stanton MD Start: 11-20-2012 End: 02-16-2013 *Hepatic Function Panel Linda Donald Start: 11-20-2012 End: 02-12-2013 Cardiac Rehab Parag Stanton MD Start: 11-20-2012 End: 02-16-2013 Electrocardiogram, complete Parag Stanton MD Start: 11-20-2012 End: 11-20-2012 Follow Up Appt 3 months Linda Donald Start: 11-20-2012 End: 02-16-2013 Lipid panel [AGGREGATE] Linda Donald Start: 11-18-2012 End: 02-16-2013 *Hepatic Function Panel Linda Donald Start: 11-18-2012 End: 02-16-2013 Lipid panel [AGGREGATE] Linda Donald Start: 10-22-2012 History of coronary artery bypass grafting H/O coronary artery bypass surgery Rom Richardson [employer] Comment on above: CABG x 3 REED-LAD, F ree DA-Ramus, SVG-RPDA 10/22/2012 Start: 10-22-2012 End: 10-23-2012 Left Heart Cath Parag Stanton MD Start: 10-19-2012 End: 10-20-2012 *BMP Parag Stanton MD Start: 10-19-2012 End: 10-20-2012 aPTT Parag Stanton MD Start: 10-19-2012 End: 10-20-2012 CBC W Auto Differential panel - Blood Parag Stanton MD Start: 10-19-2012 End: 10-20-2012 Chest x-ray Parag Stanton MD Start: 10-19-2012 End: 10-20-2012 Electrocardiogram, complete Parag Stanton MD Start: 10-19-2012 End: 10-20-2012 INR in Platelet poor plasma by Coagulation assay Parag Stanton MD Start: 10-19-2012 End: 10-19-2012 Nurse Teaching (no charge) Parag Stanton MD Start: 10-14-2012 End: 10-14-2012 Follow Up Appt 6 months Linda Donald Start: 10-14-2012 End: 10-19-2012 Nuclear stress test -exercise Parag Stanton MD Start: 06-15-2012 End: 06-19-2012 *Hepatic Function Panel Linda Donald Start: 06-15-2012 End: 06-19-2012 Lipid panel [AGGREGATE] Linda Donald Start: 03-11-2012 End: 03-11-2012 Follow Up Appt 6 months Linda Donald Start: 11-17-2011 Construction of shunt K KAT MURCIA MD Start: 05-24-2011 Placement of stent i n coronary artery Coronary stent Amara Lee RN Start: 09-19-1998 History of placement of stent for coronary artery disease History of coronary artery stent placement Dr. Rom Mendez Work Phone: Comment on above: [id number] RCA 09/19/98 History of coronary artery bypass grafting S/P CABG x 1 CHERI MURCIA MD Plan of Treatment Date Care Activity Detail Author Start: 04-18-2025 Evaluation of diagnostic study results [facility] Start: 02-24-2025 [facility] Start: 10-27-2017 End: 10-27-2017 Appointment [facility] Work Phone: Start: 10-27-2017 End: 10-27-2017 Appointment Appointment [facility] Work Phone: Start: 10-16-2017 End: 04-22-2017 *Hepatic Function Panel *Hepatic Function Panel [facility] Work Phone: Start: 10-16-2017 End: 04-22-2017 Lipid panel [AGGREGATE] *Lipid Profile CC PCP [facility] Work Phone: Start: 04-15-2017 End: 04-15-2017 Appointment Appointment [facility] Work Phone: Start: 04-15-2017 End: 04-15-2017 Appointment Appointment [facility] Work Phone: Start: 04-15-2017 End: 04-15-2017 Follow Up Appt 6 months Follow Up Appt 6 months [facility] Work Phone: Start: 04-15-2017 End: 04-15-2017 MMM MMM [facility] Work Phone: Start: 04-07-2017 End: 04-15-2017 *Hepatic Function Panel *Hepatic Function Panel [facility] Work Phone: Start: 04-07-2017 End: 04-15-2017 Lipid panel [AGGREGATE] *Lipid Profile CC PCP [facility] Work Phone: Start: 10-14-2016 End: 10-14-2016 Follow Up Appt 6 months Follow Up Appt 6 months [facility] Work Phone: Start: 10-14-2016 End: 10-14-2016 MMM MMM [facility] Work Phone: Start: 10-08-2016 End: 10-08-2016 *Hepatic Function Panel *Hepatic Function Panel [facility] Work Phone: Start: 10-08-2016 End: 10-08-2016 Lipid panel [AGGREGATE] *Lipid Profile CC PCP [facility] Work Phone: Start: 04-11-2016 End: 04-11-2016 Follow Up Appt 6 months Follow Up Appt 6 months [facility] Work Phone: Start: 04-11-2016 End: 04-11-2016 MMM MMM [facility] Work Phone: Start: 04-11-2016 End: 04-11-2016 Nuclear stress test -Lexiscan Nuclear stress test -Lexiscan [facility] Work Phone: Start: 04-01-2016 End: 04-09-2016 *Hepatic Function Panel *Hepatic Function Panel [facility] Work Phone: Start: 04-01-2016 End: 04-09-2016 Lipid panel [AGGREGATE] *Lipid Profile CC PCP [facility] Work Phone: Start: 11-29-2015 End: 11-29-2015 *BMP *BMP [facility] Work Phone: Start: 11-29-2015 End: 11-29-2015 Follow Up Appt 3 months Follow Up Appt 3 months [facility] Work Phone: Start: 11-29-2015 End: 11-29-2015 Follow Up BP Check Follow Up BP Check [facility] Work Phone: Start: 11-29-2015 End: 11-29-2015 MMM MMM [facility] Work Phone: Start: 10-05-2015 End: 10-05-2015 TRACK REPAIR LABORER TRACK REPAIR LABORER [facility] Work Phone: Start: 10-05-2015 End: 10-05-2015 Electrocardiogram, complete EKG (In office) [facility] Work Phone: Start: 10-05-2015 End: 10-05-2015 Follow Up Appt 6 months Follow Up Appt 6 months [facility] Work Phone: Start: 10-05-2015 End: 11-29-2015 Follow Up Appt Other Follow Up Appt Other [facility] Work Phone: Start: 09-28-2015 End: 10-02-2015 *Hepatic Function Panel *Hepatic Function Panel [facility] Work Phone: Start: 09-28-2015 End: 10-02-2015 Lipid panel [AGGREGATE] *Lipid Profile CC PCP [facility] Work Phone: Start: 03-30-2015 End: 03-30-2015 Follow Up Appt 6 months Follow Up Appt 6 months [facility] Work Phone: Start: 03-30-2015 End: 03-30-2015 MMM MMM [facility] Work Phone: Start: 03-17-2015 End: 03-28-2015 *Hepatic Function Panel *Hepatic Function Panel [facility] Work Phone: Start: 03-17-2015 End: 03-28-2015 Lipid panel [AGGREGATE] *Lipid Profile CC PCP [facility] Work Phone: Start: 09-16-2014 End: 09-16-2014 TRACK REPAIR LABORER TRACK REPAIR LABORER [facility] Work Phone: Start: 09-16-2014 End: 09-16-2014 Follow Up Appt 6 months Follow Up Appt 6 months [facility] Work Phone: Start: 08-17-2014 End: 09-13-2014 *Hepatic Function Panel *Hepatic Function Panel [facility] Work Phone: Start: 08-17-2014 End: 09-13-2014 Lipid panel [AGGREGATE] *Lipid Profile CC PCP [facility] Work Phone: Start: 03-15-2014 End: 09-06-2014 *Hepatic Function Panel *Hepatic Function Panel [facility] Work Phone: Start: 03-15-2014 End: 03-15-2014 Follow Up Appt 6 months Follow Up Appt 6 months [facility] Work Phone: Start: 03-15-2014 End: 09-06-2014 Lipid panel [AGGREGATE] *Lipid Profile CC PCP [facility] Work Phone: Start: 03-15-2014 End: 03-15-2014 MMM MMM [facility] Work Phone: Start: 01-15-2014 End: 03-11-2014 *Hepatic Function Panel *Hepatic Function Panel [facility] Work Phone: Start: 01-15-2014 End: 03-11-2014 Lipid panel [AGGREGATE] *Lipid Profile CC PCP [facility] Work Phone: Start: 08-18-2013 End: 08-18-2013 TRACK REPAIR LABORER TRACK REPAIR LABORER [facility] Work Phone: Start: 08-18-2013 End: 08-18-2013 Follow Up Appt 6 months Follow Up Appt 6 months [facility] Work Phone: Start: 07-18-2013 End: 08-16-2013 *Hepatic Function Panel *Hepatic Function Panel [facility] Work Phone: Start: 07-18-2013 End: 08-16-2013 Lipid panel [AGGREGATE] *Lipid Profile [facility] Work Phone: Start: 02-16-2013 End: 02-16-2013 Follow Up Appt 6 months Follow Up Appt 6 months [facility] Work Phone: Start: 02-16-2013 End: 02-16-2013 MMM MMM [facility] Work Phone: Start: 11-20-2012 End: 02-16-2013 *Hepatic Function Panel *Hepatic Function Panel [facility] Work Phone: Start: 11-20-2012 End: 08-18-2013 Cardiac Rehab Cardiac Rehab [facility] Work Phone: Start: 11-20-2012 End: 02-16-2013 Electrocardiogram, complete EKG (In office) [facility] Work Phone: Start: 11-20-2012 End: 11-20-2012 Follow Up Appt 3 months Follow Up Appt 3 months [facility] Work Phone: Start: 11-20-2012 End: 02-16-2013 Lipid panel [AGGREGATE] *Lipid Profile [facility] Work Phone: Start: 11-18-2012 End: 02-16-2013 *Hepatic Function Panel *Hepatic Function Panel [facility] Work Phone: Start: 11-18-2012 End: 02-16-2013 Lipid panel [AGGREGATE] *Lipid Profile [facility] Work Phone: Start: 10-22-2012 End: 10-19-2012 Left Heart Cath Left Heart Cath [facility] Work Phone: Start: 10-19-2012 End: 10-20-2012 *BMP *BMP [facility] Work Phone: Start: 10-19-2012 End: 10-20-2012 aPTT *PTT-Partial Thromboplastin Time [facility] Work Phone: Start: 10-19-2012 End: 10-20-2012 aPTT Coag (PPP) [Time] *PTT-Partial Thromboplastin Time [email or web address] Work Phone: Start: 10-19-2012 End: 10-20-2012 CBC W Auto Differential panel - Blood *CBC without Diff [email or web address] Work Phone: Start: 10-19-2012 End: 10-20-2012 Chest x-ray X-Ray, Chest, PA & Lateral [email or web address] Work Phone: Start: 10-19-2012 End: 10-20-2012 Coagulation factor induced.INR assay in platelet poor plasma *PT/INR [email or web address] Work Phone: Start: 10-19-2012 End: 10-20-2012 Electrocardiogram, complete EKG (In office) [facility] Phone: Start: 10-14-2012 End: 10-14-2012 Follow Up Appt 6 months Follow Up Appt 6 months [employer] Work Phone: Start: 10-14-2012 End: 10-14-2012 Nuclear stress test -exercise Nuclear stress test -exercise [facility] Phone: Start: 06-15-2012 End: 06-19-2012 *Hepatic Function Panel *Hepatic Function Panel [employer] Phone: Start: 06-15-2012 End: 06-19-2012 Lipid panel [AGGREGATE] *Lipid Profile [email or web address] Work Phone: Start: 03-11-2012 End: 03-11-2012 Follow Up Appt 6 months Follow Up Appt 6 months [employer] Phone: Basic metabolic 2008 panel with ionized calcium - Serum or Plasma [facility] CBC W Auto Different ial panel - Blood [facility] Lipid 1996 panel - S benjamin or Plasma [facility] Work Phone: Lipid 1996 panel - S benjamin or Plasma [facility] Natriuretic peptide. B prohormone N-Terminal [Mass/volume] in Serum or Plasma [facility] Patient Education [facility] Work Phone: Patient referral [facility] Work Phone: T4 free measurement [facility] Thyroid stimulating hormone measurement [facility] Work Phone: Thyroid stimulating hormone measurement [facility] Triiodothyronine, fr ee measurement [facility] XR Chest PA and Lateral [facility] Payers Date Payer Category Payer Self-pay [id number] 2024 Unknown [id number] [facility] [id number] 1940 Unknown [id number] 2.16.8 [id number] Unknown [id number] 2.16.8 [id number] Unknown [id number] 2.16.8 40.1.595839.3.579.2.462 Unknown [id number] 2.16.8 40.1.717946.3.579.2.462 Unknown [id number] 2.16.8 40.1.673380.3.579.2.462 Unknown [id number] 2.16.8 40.1.884145.3.579.2.462 Unknown [id number] 2.16.8 40.1.212911.3.579.2.462 Unknown [id number] 2.16.8 40.1.686621.3.579.2.462 Unknown [id number] 2.16.8 40.1.679136.3.579.2.462 Unknown [id number] 2.16.8 40.1.376143.3.579.2.462 Unknown [id number] 2.16.8 40.1.219843.3.579.2.462 Unknown [id number] 2.16.8 40.1.231086.3.579.2.462 Unknown [id number] 2.16.8 40.1.792636.3.579.2.462 Unknown [id number] 2.16.8 40.1.604622.3.579.2.462 Unknown [id number] 2.16.8 40.1.053353.3.579.2.462 Unknown [id number] 2.16.8 40.1.410922.3.579.2.462 Unknown [id number] 2.16.8 40.1.475050.3.579.2.462 Unknown [id number] 2.16.8 40.1.640212.3.579.2.462 Unknown [id number] 2.16.8 40.1.773178.3.579.2.462 Unknown [id number] 2.16.8 40.1.642077.3.579.2.462 Unknown [id number] 2.16.8 40.1.978050.3.579.2.462 Unknown [id number] 2.16.8 40.1.485361.3.579.2.462 Unknown [id number] 2.16.8 40.1.465295.3.579.2.462 Social History Date Type Detail Facility Start: 08-22-2022 End: 08-06-2023 Tobacco smoking status NHIS Unknown if ever smoked [facility] Start: 1940 Sex Assigned At Male [facility] Start: 09-02-2024 End: 02-24-2025 Tobacco smoking status Never smoked tobacco (finding) [facility] Sex Assigned At Sex [facility] Start: 02-03-2025 End: 02-24-2025 Sex Male (finding) [facility] Clinical Notes 10-22-2012 to 04-18-2025 Note Date & Type Note Facility 04-18-2025 Radiology Diagnostic study note [facility] Imaging Services [address] [place] [address] [id number] Chest PA and Lateral MR#: [id number] Acct: [id number] Name: LYNETTE GONZALEZ Rep #: [id number] 16 : 1940 M 84 From: Prashant Ceja DO PCP: Dr. Cordell Escalante MD Status: REG CL I Study:Chest PA and Lateral Date of Exam: 04/18/25 Exam# [id number] Ordering Dr: Lety Mcdonald [employer] PROCEDURE: CHEST PA AND LATERAL 04/18/2025 REASON FOR EXAM: CARDIOVERSION TECHNIQUE: Frontal and lateral views of the chest. COMPARISON: Chest x-ray studies dated 11/10/2022 and 11/05/2022 FINDINGS: Hardware: Median sternotomy wires and vascular clips are present. Heart: Heart size and configuration are within normal limits. Pulmonary vasculature and hilar structures are unremarkable. Mediastinum: Unremarkable Lungs: Stable pulmonary nodules are seen which appear to represent granulomas and/or summation artifact. No new pulmonary nodules are seen. There is no atelectasis, consolidation, effusion or pneumonicinfiltrate. There is no lung contusion or pneumothorax. Bones: No acute osseous abnormality is noted. RAD/Chest PA and Lateral IMPRESSION: No acute cardiopulmonary process is identified radiographically. Reading Location: [id number] CC: [employer] Lety Mcdonald; Dr. Cordell Escalante MD ~ Belt Notcher: Signed [facility] 02-24-2025 Discharge summary [facility] 02-24-2025 Radiology Diagnostic study note [facility] Imaging Services [address] [place] [address] [id number] Soft Tissue Neck WITH Contrast MR#: [id number] Acct: [id number] Name: LYNETTE GONZALEZ Rep #: [id number] 52 : 1940 M 84 From: Becki Mckeon MD PCP: Dr. 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 CONTRAST: Isovue 370 VOLUME: 100 mL One or more dose reduction techniques were used (e.g., Automated exposure control, adjustment of the mA and/or kV according to patient size, use of iterative reconstruction technique). RADIATION DOSE SUMMARY: CTDlvol: 27 mGy DLP: 624 mGycm COMPARISON: None. FINDINGS: Visualization of the floor of mouth is slightly limited by streak artifact from adjacent dental amalgam. Airway: The major airways are patent. There is enlargement of the left palatinetonsil with focal hypodensity centered within the left piriform fossa, measuring 3.8 x 2.9 cm (series 2, image 72). No area of rim enhancing fluid collection or edema. Salivary glands: Unremarkable. Lymph nodes: No cervical lymphadenopathy. Thyroid: Unremarkable. Vasculature: Mild calcific plaque of the aortic arch, aortic arch vessels, and bilateral carotid arteries. Orbits: Unremarkable at visualized levels. Paranasal sinuses and mastoids: Retention cyst or polyp within the right maxillary sinus. The mastoid air cells and visualized paranasal sinuses are otherwise well-aerated. Lung apices: Mild biapical pleuro-parenchymal scarring. Upper mediastinum: Prior median sternotomy. Bones: Multilevel degenerative changes of the spine. Other: Prior dental restorations. CT/Soft Tissue Neck WITH Contrast IMPRESSION: 1. Enlargement of the left palatine tonsil, most compatible with uncomplicated tonsillitis, however visualization is limited by streak artifact. Tonsillar neoplasm is an additional consideration, however felt less likely given patient's symptoms and presentation. Follow-up CT neck in 2-3 weeks is recommended to evaluate for resolution after appropriate antibiotic treatment. 2. No abscess or cervical lymphadenopathy. Findings were discussed by Dr. Mckeon with Jena Garcia via telephone at 9:35p.m. on 02/24/2025. Reading Location: [id number] CC: Dr. Cordlel Escalante MD; Dr. Jena Garcia, DO ~ Belt Notcher: Signed [facility] 02-24-2025 Discharge summary Note Date/Time February 24, 2025 11:01pm [facility] Medical Records Department [address] [place] [address] Emergency Department Summary 02/24/25 MR#: [id number] Acct: [id number] Name: LYNETTE GONZALEZ Rep #:[id number] : 1940 84 From: Jena Pierre O PCP: Dr. Cordell Escalante MD Status:REG ER Location: ED HPI History of Present Illness Chief Complaint: Sore Throat Informant: patient Narrative Narrative: Patient is an 84-year-old male with history of coronary disease presenting with 3 days of worsening throat pain. His PCP was out of office but he saw another doctor there 2 days ago. He did not have any swabs done. He started on azithromycin. Feels that over the past 24 hours he is having worsening left-sided throat pain and swelling. States is hard to chew and swallow. Is not been eating or drinking much. Denies associated fever. Denies any nausea or vomiting. Denies any associated chest pain or shortness of breath. Denies any cough. States the pain is now rating up into his left ear as well. He has beentaking his regular medications. No other complaints or concerns reported at this time. Denies any history of anything like this before. Not taken anythingfor symptoms prior to arrival. [facility] Medical History Fatigue Low testosterone level in male Paroxysmal atrial fibrillation Multiple premature ventricular complexes Persistent atrial fibrillation Right bundle branch block (RBBB) New onset atrial fibrillation (11/27/21) Old inferior wall myocardial infarction Essential (primary) hypertension Postoperative atrial fibrillation Gynecomastia Prostate cancer HLD (hyperlipidemia) Atherosclerotic heart disease of [place] coronary artery without angina pectoris Home Medications ?Medication ?Instructions ?Recorded ?Last Taken ?Type aspirin 81 mg tablet,delayed 81 mg PO QDAY 10/22/17 Un known History release (Adult Low Dose Aspirin) folic acid 0.8 mg capsule 800 mcg PO QDAY 10/22/17 Unk nown History nitroglycerin 0.4 mg sublingual 0.4 mg sublingual Q5-1 5M PRN pain 08/06/23 Unknown Rx tablet #25 tabs amlodipine 10 mg tablet (Norvasc) 10 mg PO QDAY #90 ta bs 04/19/24 Unknown Rx atorvastatin 10 mg tablet (Lipitor) 10 mg PO QHS #90 t abs 07/22/24 Unknown Rx losartan 25 mg tablet 25 mg PO DAILY #90 tabs 1105/10 Unknown Rx levothyroxine 25 mcg capsule 25 mcg PO QDAY 12/24/24 U nknown History apixaban 5 mg tablet (Eliquis) 5 mg PO BID #180 tabs 0 01/25/25 Unknown Rx metoprolol tartrate 25 mg tablet 25 mg PO BID #180 tab s 02/07/25 Unknown Rx amoxicillin 875 mg-potassium 1 tab PO BID #20 tabs 09/10 Unknown Rx clavulanate 125 mg tablet oxycodone 5 mg capsule 5 mg PO Q8H PRN pain 3 days #10 02/24/25 Unknown Rx caps Allergy/AdvReac Type Severity Reaction Status Date / Time No Known Allergies Allergy Verified 02/24/25 19:55 Family History Father Cancer Prostate Cancer Surgical History History of cardioversion (01/14/22) History of coronary artery stent placement (09/19/98) H/O coronary artery bypass surgery (10/22/12) Social History Smoking Status: Never smoker second hand exposure: No alcohol intake: current alcohol intake frequency: a few times a week Alcohol type: beer substance use type: does not use caffeine: Yes Type: coffee Number of servings: 2 eating out: 1-3 times/week during the past year weight has: remained stable what type of physical activity do you participate in: walking and weight training frequency: 5-6 times per week duration: 45-60 minutes/day seatbelt use: always do you feel safe at home: Yes ROS ROS ED Constitutional Constitutional ED: Reports other Details: Reports generalized malaise ; Denies chills or fever(s) ENT ENT ED: Reports ear pain left and sore throat Cardiovascular Cardiovascular: Denies chest pain or palpitations Respiratory/Chest Respiratory/Chest: Denies cough or dyspnea Gastrointestinal Gastrointestinal: Denies abdominal pain, nausea or vomiting Musculoskeletal Musculoskeletal: Denies arthralgias or myalgias Integumentary Denies rash Neurologic Neurologic: Reports headache(s) Hematologic/Lymphatic Hematologic/Lymphatic: Reports easy bleeding, easy bruising and other Details: On Eliquis EXAM Physical Exam Const Vital Signs: 02/24/25 19:52 02/24/25 20:22 02/24/25 21:00 Temperature 97.2 F L 98.4 F 98.4 F Temperature Source Temporal Oral Oral Pulse Rate 122 H 122 H 106 H Respiratory Rate 17 18 18 Blood Pressure 111/77 162/80 H 143/79 H Blood Pressure Mean 88 107 96 Pulse Ox 99 98 99 Oxygen Delivery Method Room Air Room Air Room Air 02/24/25 22:00 Temperature 98.1 F Temperature Source Oral Pulse Rate 89 Respiratory Rate 18 Blood Pressure 124/73 H Blood Pressure Mean 89 Pulse Ox 96 Oxygen Delivery Method Room Air Positive well nourished and well developed General Appearance ED: well developed and NAD HEENT Reports TM's clear and moist mucous membranes HEENT Narrative: No trismus. Normal phonation. Uvula is midline. Patient has significant swelling of the left tonsil on exam. No obvious exudate. No dental tenderness to palpation. Tympanic Membrane ED: Yes TM's clear Eyes PERRL Neck supple Neck Narrative: There is palpation of the left submandibular area General: tenderness Chest Wall inspection of chest normal Resp normal respiratory effort and clear to auscultation bilaterally Auscultation: Negative for rhonchi or wheezes Cardio regular rhythm Rate: tachycardic GI normal to inspection, nondistended, normoactive bowel sounds and non-tender Extremity normal to inspection General Extremety ED: Negative for edema General Extremity: Negative for edema Neuro oriented x3 Sensorium / Orientation: alert Motor Exam: Negative for general weakness Psych mental status grossly normal MDM MDM MDM Narrative Medical decision making narrative: Patient is a 84-year-old male presenting with 3 days of worsening left-sided throat pain and sensation of throat swelling. He is tender in his submandibulararea. Upon arrival he is tachycardic and protocol EKG was obtained as he does have a cardiac history. Patient is not complaining of any chest pain or shortness of breath. EKG showed atrial fibrillation with rapid ventricular response at a rate of 121 bpm The computer interpreted STEMI but I disagree with this interpretation. He has underlying right bundle michelle block and I think the block is looking worse since he is in A-fib with RVR. On exam patient has left-sided tonsillar swelling. Concern for possible peritonsillar abscess versus parotitis versus pharyngitis. Strep swab obtained is negative. Patient given IV Decadron and a dose of Unasynas well as a dose of morphine in the ER for symptoms. He is also given Tylenol. Heart rate improved in the emergency room and normalizes. He is afebrile in the ER. He has a leukocytosis with white blood cell count of 16.1. No left shift. CMP largely normal. Lactate normal at 1.0. CT soft tissue neck with IV contrast shows enlargement of the left palatine tonsil most compatible with uncomplicated tonsillitis. There is possibility of tonsillar neoplasm but given the acute onset of symptoms less likely. On repeat evaluation patient is feeling much better. Is tolerating p.o. appearscomfortable discharge home. Will start him on Augmentin and have him stop the azithromycin. I did speak with Dr. Hull given his age and findings today. Patient is established with him. He is agreeable with this plan and recommends outpatient follow-up in 2 to 3 weeks. Patient given return precautions. As he cannot take NSAIDs is given a short course of oxycodone for breakthrough pain relief. Patient discharged home in improved and stable condition. Lab Data Attestation: I reviewed the patient's lab results. Labs: Laboratory Results - last 24 hr 02/24/25 20:36 WBC 16.1 H RBC 4.01 L Hgb 12.9 L Hct 37.2 L MCV 92.8 MCH 32.2 H MCHC 34.7 RDW Std Deviation 43.8 RDW Coeff of Jeanmarie 12.8 Plt Count 183 MPV 10.3 Immature Gran % (Auto) 0.600 Neut % (Auto) 81.9 H Lymph % (Auto) 7.8 L Zapata % (Auto) 9.4 Eos % (Auto) 0.1 Baso % (Auto) 0.2 Absolute Neuts (auto) 13.2 H Absolute Lymphs (auto) 1.25 Nucleated RBC % 0 Differential Comment SCANNED Diff Path Review May foll Sodium 134 Potassium 4.1 Chloride 100 Carbon Dioxide 21.0 Anion Gap 13 BUN 17 Creatinine 1.06 Estim Creat Clear Calc 64.14 Est GFR (MDRD) Non-Af 70 BUN/Creatinine Ratio 16.3 Glucose 138 H Lactic Acid 1.0 Calcium 9.5 Total Bilirubin 0.72 AST 15 ALT 13 Alkaline Phosphatase 69 Total Protein 7.7 Albumin 4.1 Globulin 3.6 Albumin/Globulin Ratio 1.1 Radiography Diagnostic Testing: Clinical Impression(s) from Imaging Studies Soft Tissue Neck CT 02/24/25 20:35 IMPRESSION: 1. Enlargement of the left palatine tonsil, most compatible with uncomplicated tonsillitis, however visualization is limited by streak artifact. Tonsillar neoplasm is an additional consideration, however felt less likely given patient's symptoms and presentation. Follow-up CT neck in 2-3 weeks is recommended to evaluate for resolution after appropriate antibiotic treatment. 2. No abscess or cervical lymphadenopathy. Findings were discussed by Dr. Mckeon with Jena Garcia via telephone at 9:35p.m. on 02/24/2025. Reading Location: [facility] Rhythm Strip Rhythm Strip: A-fib Rate: 121 Ectopy: PVC(s) EKG Initial EKG: Attestation: I personally reviewed and interpreted this EKG as follows: Interpretation: Atrial Fibrillation Comments: Atrial fibrillation with rapid ventricular sponsor rate 121 bpm Normal axis Normal intervals Right bundle branch block PVC present Strain pattern present Management Discussion w/another healthcare provider: [employer] Discharge Plan Triage Chief Complaint: Sore Throat ED Provider: Jena Garcia Dx/Rx/DC Orders Clinical Impression: Acute tonsillitis, Tachycardia Instructions: Tonsillitis in Adults Prescriptions: New amoxicillin-pot clavulanate 875-125 mg tablet 1 tab PO BID Qty: 20 0RF oxycodone 5 mg capsule 5 mg PO Q8H PRN (Reason: pain) 3 Days Qty: 10 0RF No Action nitroglycerin 0.4 mg tablet, sublingual 0.4 mg SUBLINGUAL Q5-15M PRN (Reason: pain) Qty: 25 3RF amlodipine [Norvasc] 10 mg tablet 10 mg PO QDAY Qty: 90 3RF levothyroxine 25 mcg capsule 25 mcg PO QDAY aspirin [Adult Low Dose Aspirin] 81 mg tablet,delayed release (DR/EC) 81 mg PO QDAY folic acid 0.8 mg capsule 800 mcg PO QDAY atorvastatin [Lipitor] 10 mg tablet 10 mg PO QHS Qty: 90 3RF losartan 25 mg tablet 25 mg PO DAILY Qty: 90 3RF Eliquis 5 mg tablet 5 mg PO BID Qty: 180 3RF metoprolol tartrate 25 mg tablet 25 mg PO BID Qty: 180 3RF Primary Care Provider: Cordell Escalante Referrals: Cordell Escalante MD [Primary Care Provider] - Crow Beltran MD [Med Staff - Active Staff] - (2 weeks ) Activity Restrictions/Additional Instructions: Suspect you have tonsillitis/pharyngitis as cause your symptoms. You are started on antibiotics for this. Stop taking the azithromycin. Take Tylenol asneeded for pain. You were given a short course of oxycodone for breakthrough severe pain. There is a slim chance that there could be a malignancy causing this and I do recommend you follow-up with ear nose and throat, Dr. Hull. Call his office to be seen in 2 to 3 weeks per his recommendations. If your symptoms worsen, you develop a fever, have voice changes or unable to swallow please return to the emergency room. Print Language: Scottish Disposition Disposition: Home, Self Care What to do if you have Problems For any increased pain, shortness of breath, bleeding, nausea or vomiting, chestpain, or any unexpected problems, contact your Primary Care Provider. Call [facility] ([phone]) or report to the closest Emergency Room. Call [phone] if necessary. 02/24/25 2301 <Electronically signed by Jena Garcia DO> Cosigner Signature (if applicable): CC: Dr. Cordell Escalante MD ~ Signed [facility] Work Phone: 1(502) 979-513202-07-2025 Evaluation note* Diagnosis Onset Date Resolution Status Admit Date Essential (primary) hypertension chronic December 24 10:49am HLD (hyperlipidemia) chronic 2024 10:49am Paroxysmal atrial fibrillation chronic December 24 10:49am H/O coronary artery bypass surgery October 22, 2012 resolved December 24, 2024 10:49am [facility] Work Phone: 1(663) 246-387902-07-2025 Evaluation note* Diagnosis Onset Date Resolution Status Admit Date Essential (primary) hypertension chronic December 24 10:49am HLD (hyperlipidemia) chronic 2024 10:49am Paroxysmal atrial fibrillation chronic December 24 10:49am H/O coronary artery bypass surgery October 22, 2012 resolved December 24, 2024 10:49am SOB (shortness of breath) acute April 18, 2025 11:20am Essential (primary) hypertension chronic April 18, 2025 11:20am HLD (hyperlipidemia) chronic April 18, 2025 11:20am Paroxysmal atrial fibrillation chronic April 18, 2025 11:20am H/O coronary artery bypass surgery October 22, 2012 resolved April 18 11:20am [facility] Work Phone: 1(760) 670-548012-06-2012 Evaluation note* Diagnosis Onset Date Resolution Status Essential (primary) hypertension chronic HLD (hyperlipidemia) chronic Paroxysmal atrial fibrillation chronic H/O coronary artery bypass surgery October 22, 2012 resolved [facility] Work Phone: 1(700) 791-677012-06-2012 Evaluation note* Diagnosis Onset Date Resolution Status Essential (primary) hypertension chronic HLD (hyperlipidemia) chronic Paroxysmal atrial fibrillation chronic Fatigue resolved H/O coronary artery bypass surgery October 22, 2012 resolved [facility] Work Phone: Evaluation + Plan note Future Appointments Appointment Date:01/27/2025 10:45:00 AM Scheduled Provider:CHERI MURCIA MD Location:[facility] Appointment Type:[facility] Future Scheduled Tests Laboratory* Thyroid Stimulating Hormone 01/26/25 * Free T3 01/26/25 * Vitamin D Level 01/26/25 * Complete Metabolic Panel 01/26/25 Radiology* NM Thyroid Imaging w/ Uptake Multiple 09/02/24 [facility] Evaluation noteNo assessment information available [facility] Work Phone: Hospital course Narrative No data available for this section [facility] Hospital Discharge instructions Additional Instructions You can get Robitussin (guaifenesin) poci-ixr-mbvaiat to help with cough. You can use your inhaler 2 to 3 puffs every 4 hours as needed for shortness of breath and wheezing. [facility] Work Phone: Hospital Discharge instructions No data available for this section [facility] Hospital Discharge instructions Additional Instructions Suspect you have tonsillitis/pharyngitis as cause your symptoms. You are started on antibiotics for this. Stop taking the azithromycin. Take Tylenol as needed for pain. You were given a short course of oxycodone for breakthrough severe pain. There is a slim chance that there could be a malignancy causing this and I do recommend you follow-up with ear nose and throat, Dr. Hull. Call his office to be seen in 2 to 3 weeks per his recommendations. If your symptoms worsen, you develop a fever, have voice changes or unable to swallow please return to the emergency room.[facility] Work Phone: Progress note No data available for this section [facility] Reason for referral (narrative)No reason for referral information [facility] Work [facility]: Chief Complaint and Reason for Visit Chief Complaint EORDER 1 Y FU Reason for Visit Essential (primary) hypertension HLD (hyperlipidemia) Paroxysmal atrial fibrillation H/O coronary artery bypass surgery Chief Complaint EORDER 1 Y FU C61 Reason for Visit Essential (primary) hypertension HLD (hyperlipidemia) Paroxysmal atrial fibrillation H/O coronary artery bypass surgery Chief Complaint EORDER 1 Y FU C61 WHEEZING cough Reason for Visit Essential (primary) hypertension HLD (hyperlipidemia) Paroxysmal atrial fibrillation H/O coronary artery bypass surgery Chief Complaint WHEEZING cough Bradycardia vs PVC's [facility] Chief Complaint Bradycardia vs PVC's [facility] 6 M FU Reason for Visit Essential (primary) hypertension HLD (hyperlipidemia) Paroxysmal atrial fibrillation H/O coronary artery bypass surgery Chief Complaint E ORDERS 6 M FU Reason for Visit Essential (primary) hypertension HLD (hyperlipidemia) Paroxysmal atrial fibrillation Fatigue H/O coronary artery bypass surgery Chief Complaint 6 m fu Reason for Visit Essential (primary) hypertension HLD (hyperlipidemia) Paroxysmal atrial fibrillation H/O coronary artery bypass surgery Chief Complaint 6 m fu PYLARIFY Reason for Visit Essential (primary) hypertension HLD (hyperlipidemia) Paroxysmal atrial fibrillation H/O coronary artery bypass surgery Chief Complaint Admit Date LOW TSH LEVEL, [facility] USE OF AMIODARO GARRY CLARK October 06, 2024 8:14am 2 ORDERING DOCTORS December 24, 2024 8 :25am 9 m fu / SCHEDULE W KARISSA December 10:49am Reason for Visit Admit Date Essential (primary) hypertension 2024 10:49am HLD (hyperlipidemia) December 24, 2024 10:49am Paroxysmal atrial fibrillation December 24, 2024 10:49am H/O coronary artery bypass surgery u [email or web address] 10:49am Chief Complaint Admit Date 2 ORDERING DOCTORS December 24, 2024 8 :25am 9 m fu / SCHEDULE W KARISSA December 10:49am SORE THROAT February 24, 2025 7:5 1pm Chief Complaint Admit Date 2 ORDERING DOCTORS December 24, 2024 8 :25am 9 m fu / SCHEDULE W KARISSA December 10:49am SORE THROAT February 24, 2025 7:5 1pm Atrial fibrillation April 18, 2025 11:20 am Reason for Visit Admit Date Essential (primary) hypertension 2024 10:49am HLD (hyperlipidemia) December 24, 2024 10:49am Paroxysmal atrial fibrillation December 24, 2024 10:49am H/O coronary artery bypass surgery 2024 10:49am SOB (shortness of breath) April 18, 2025 11:20am Essential (primary) hypertension April 11:20am HLD (hyperlipidemia) April 18, 2025 11:2 0am Paroxysmal atrial fibrillation April 18, 2025 11:20am H/O coronary artery bypass surgery April 18, 2025 11:20am Chief Complaint Admit Date 2 ORDERING DOCTORS December 24, 2024 8 :25am 9 m fu / SCHEDULE W KARISSA December 10:49am SORE THROAT February 24, 2025 7:5 1pm Atrial fibrillation April 18, 2025 11:20 am FOR CATH NOT SCHEDULED YET April 18 11:53am Advance Directives Advance Directive Response Recorded Date/ Time Advance Directives Yes December 12:22pm Living Will Yes January 14, 12:22pm Power of Emergency Dispatcher Yes January 14, 2022 12:22pm Advance Directive Response Recorded Date/ Time Advance Directives Yes December 11:22am Living Will No November 10, 11:02am Power of Emergency Dispatcher No November 10, 2022 11:02am Advance Directive Response Recorded Date/ Time Advance Directives Yes December 12:22pm Living Will No November 10, 12:02pm Power of Emergency Dispatcher No November 10, 2022 12:02pm Advance Directive Response Recorded Date/ Time Living Will No November 10, 12:02pm Do you have a Healthcare Power of Emergency Dispatcher? No November 10, 2022 12:02pm Advance Directives Yes December 12:22pm Advance Directive Response Recorded Date/ Time Living Will No November 10, 12:02pm Do you have a Healthcare Power of Emergency Dispatcher? No November 10, 2022 12:02pm Living Will Yes February 24, 2025 8:26pm Do you have a Healthcare Power of Emergency Dispatcher? Yes February 24, 2025 8:26pm Name of Medical Power of Emergency Dispatcher Karissa Gonzalez February 24, 2025 8:26pm Advance Directives Yes December 12:22pm Summary Purpose Family History No Family History Records Found Additional Source Comments Goals (unrecognized section and content) Goals may be documented in a n alternate sectionGoals may be documented in an alternate sectionGoals may be documented in an alternate sectionGoals may be documented in an alternate sectionGoals may be documented in an alternate sectionGoals may be documented in an alternate sectionGoals may be documented in an alternate sectionGoals may be documented in an alternate section No data available for this sectionGoals may be documented in an alternate sectionGoals may be documented in an alternate sectionGoals may be documented in an alternate sectionGoals may be documented in an alternate section Care Teams (unrecognized sec tion and content) Team Status: Active Member Role Status Dates Dr. Rom Mendez MD Family Provider Active Janell Walters , DO Primary Care Provider Active Team Status: Inactive Member Role Status Dates Janell Walters DO Primary Care Provider, Referring Provider Active Dr. Parag Stanton MD Attending Provider Active Team Status: Inactive Member Role Status Dates Janell Walters DO Primary Care Provider Active Dr. Seven Ely MD Attending Provider, Referring Prov ider Active Team Status: Inactive Member Role Status Dates Janell Walters DO Primary Care Provider Active Dr. Brigid Araujo MD Attending Provider, Emergency Provider Active Team Status: Inactive Member Role Status Dates Janell Walters DO Primary Care Provider Active Dr. Parag Stanton MD Attending Provider, Referring Pro vider Active Team Status: Inactive Member Role Status Dates Janell Walters DO Primary Care Provider Active Dr. Nilson Lynn MD Attending Provider, Referr ing Provider Active Team Status: Inactive Member Role Status Dates Janell Walters DO Primary Care Provider, Referring Provider Active Lety Mcdonald SECURITY ESCORT, SECURITY ESCORT-C Attending Provider Active Team Status: Inactive Member Role Status Dates Janell Walters DO Primary Care Provider Active Lety Mcdonald SECURITY ESCORT, SECURITY ESCORT-C Attending Provider Active Team Status: Inactive Member Role Status Dates Janell Walters DO Primary Care Provider Active Cordell Escalante MD Referring Provider Active Dr. Nilson Lynn MD Other Provider Active Rom Richardson NP, SECURITY ESCORT-C Attending Provider Active Team Status: Active Member Role Status Dates Cordell Escalante MD Primary Care Provider Active Team Status: Inactive Member Role Status Dates Cordell Escalante MD Primary Care Provider Active St art: October 06, 2024 End: October 06, 2024 Dr. Cheri Murcia MD Attending Provider Active Start: September End: October 06, 2024 Dr. Cheri Murcia MD Referring Provider Active Start: September End: October 06, 2024 Team Status: Inactive Member Role Status Dates Cordell Escalante MD Primary Care Provider Active St art: December 24, 2024 End: December 24, 2024 Zuleyka Guerreroing Attending Provider Active Start : December 24, 2024 End: December 24, 2024 Zuleyka Ojeda Referring Provider Active Start : December 24, 2024 End: December 24, 2024 Rom Richardson SECURITY ESCORT, SECURITY ESCORT-C Other Provider Active Start : December 24, 2024 End: December 24, 2024 Team Status: Inactive Member Role Status Dates Janell Walters DO Referring Provider Active Start: December 24, 2024 End: December 24, 2024 Rom Richardson SECURITY ESCORT, SECURITY ESCORT-C Attending Provider Active S tart: December 24, 2024 End: December 24, 2024 Cordell Escalante MD Primary Care Provider Active St art: December 24, 2024 End: December 24, 2024 Team Status: Inactive Member Role Status Loraine Escalante MD Primary Care Provider Active St art: January 24, 2025 End: January 24, 2025 Dr. Cheri Murcia MD Attending Provider Act torrey Start: January 24, 2025 End: January 24, 2025 Dr. Cheri Murcia MD Referring Provider Act torrey Start: January 24, 2025 End: January 24, 2025 Team Status: Inactive Member Role Status Loraine Escalante MD Primary Care Provider Active St art: February 24, 2025 End: February 24, 2025 Dr. Jena Garcia DO Emergency Provider Active Start: February 24, 2025 End: February 24, 2025 Team Status: Inactive Member Role Status Loraine Escalante MD Primary Care Provider Active St art: February 24, 2025 End: February 24, 2025 Dr. Jena Garcia DO Attending Provider Active Start: February 24, 2025 End: February 24, 2025 Dr. Jena Garcia DO Emergency Provider Active Start: February 24, 2025 End: February 24, 2025 Team Status: Inactive Member Role Status Loraine Escalante MD Primary Care Provider Active St art: April 05, 2025 End: April 05, 2025 Dr. Nilson Lynn MD Attending Provider Active Start: April 05, 2025 End: April 05, 2025 Dr. Nilson Lynn MD Referring Provider Active Start: April 05, 2025 End: April 05, 2025 Team Status: Inactive Member Role Status Loraine Escalante MD Primary Care Provider Active St art: April 18, 2025 End: April 18, 2025 Cordell Escalante MD Referring Provider Active Start : April 18, 2025 End: April 18, 2025 Lety Mcdonald SECURITY ESCORT, SECURITY ESCORT-C Attending Provider Active Start: April 18, 2025 End: April 18, 2025 Team Status: Inactive Member Role Status Loraine Escalante MD Primary Care Provider Active St art: April 18, 2025 End: April 18, 2025 Lety Mcdonald SECURITY ESCORT, SECURITY ESCORT-C Attending Provider Active Start: April 18, 2025 End: April 18, 2025 Lety Mcdonald SECURITY ESCORT, SECURITY ESCORT-C Referring Provider Active Start: April 18, 2025 End: April 18, 2025 (unrecognized sect ion and content) No Status Records FoundNo Status Records Found INFORMATION SOURCE (unrecogn ized section and content) DATE CREATED AUTHOR 10/31/2024 [facility] DATE CREATED AUTHOR AUTHOR'Magy BROOKS 04/22/2025 [facility] FOR RECORDS PERTAINING TO PATIENTS WHO ARE OR HAVE BEEN ENROLLED IN A CHEMICAL DEPENDENCY/SUBSTANCEABUSE PROGRAM, SOME INFORMATION MAY BE OMITTED. This clinical summary was aggregated from multiple sources. Caution should be exercised in using it in the provision of clinical care. This summary normalizes information from multiple sources, and as a consequence, information in this document may materially change the coding, format and clinical context of patient data. In addition, data may be omitted in some cases. CLINICAL DECISIONS SHOULD BE BASED ON THE PRIMARY CLINICAL RECORDS. [facility] [employer] provides no warranty or guarantee of the accuracy or completeness of information in this document.
[2025-05-07 08:26] LABS: Absolute Lymphocyte Count 1.31 X10^3/uL (0.83-4.51); Absolute Neutrophil Count 4.8 X10^3/uL (2.0-7.7); Basophil# 0.04 X10^3/uL; Basophil% 0.6 % (0-1); Eosinophil# 0.15 X10^3/uL; Eosinophils% 2.1 % (0-5); Hematocrit 39.2 % (40-54); Lymphocyte # 1.31 X10^3/ul (0.83-4.51); Lymphocyte % 18.7 % (19-41); Mean Corp Hgb Conc 33.2 g/dL (32-36); Mean Corpuscular Hgb 31.6 pg (27.0-32.0); Mean Corpuscular Volume 95.1 fL (80-94); Mean Platelet Vol. 9.7 fl (6.2-12.0); Monocyte# 0.64 X10^3/uL; Monocyte% 9.1 % (0-10); NRBC Flagged by Analyzer 0 % (0-5); Neutrophil # 4.84 X10^3/uL (2.7-7.7); Neutrophil % 68.9 % (47-70); Platelet Count 196 K/mm3 (150-450); RBC Distribution Width CV 12.6 % (11.6-14.6); RBC Distribution Width SD 43.9 fl (35.1-43.9); Red Blood Count 4.12 M/mm3 (4.6-6.2)
[2025-05-07 09:36] LABS: ALB/GLOB Ratio 1.3 RATIO (0.9-2.4); AST(SGOT) 19 U/L (<=37); Alanine Aminotransfer ALT/SGPT 24 U/L (<=46); Albumin, Serum 4.2 g/dL (3.4-4.8); Alkaline Phosphatase 65 U/L (40-129); Anion Gap 12 (5-15); BUN 19 mg/dL (4-19); BUN/Creat Ratio 16.7 RATIO (10-20); Calcium,Total 9.6 mg/dL (7.6-11.0); Carbon Dioxide 22.4 mmol/L (21.0-32.0); Chloride 105 mmol/L (98-108); Creatinine, Serum 1.12 mg/dL (0.70-1.20); EST Glomerular Filtration Rate 65 (>60); Free T3 2.9 pg/mL (2.18-3.98); Globulin 3.2 g/dL (2.2-4.2); Glucose 112 mg/dL (70-99); Potassium 4.4 mmol/L (3.3-5.1); Protein, Total 7.4 g/dL (5.9-8.4); Sodium Level 139 mmol/L (133-145); Total Bilirubin 0.41 mg/dL (0.00-1.30); Vitamin D,25 Hydroxy 52.4 ng/mL (30-100)
== END | disposition home or self-care (01) ==
LOC: LAB 08:03
PROVIDERS: PCP Family Medicine; Referring Provider Internal Medicine Endocrinology, Diabetes & Metabolism; Visit Provider Internal Medicine Endocrinology, Diabetes & Metabolism
DX: R79.89 Other specified abnormal findings of blood chemistry (principal); I48.91 Unspecified atrial fibrillation; E03.8 Other specified hypothyroidism; I10 Essential (primary) hypertension; Z95.1 Presence of aortocoronary bypass graft
CPT/HCPCS: 36415; 80053; 82306; 84439; 84443; 84481; 85025

== ENCOUNTER 2025-05-11 09:55 | Day surgery (SDC) | payer MEDICARE, SELFPAY ==
[2025-05-10 09:01] VITALS: BMI 29.8
--- NOTE | 2025-05-11 10:14 | EKG12_ITS ---
Test Reason : cardioversion Blood Pressure : */* mmHG Vent. Rate : 100 BPM Atrial Rate : * BPM P-R Int : * ms QRS Dur : 122 ms QT Int : 330 ms P-R-T Axes : * 30 -85 degrees QTcB Int : 425 ms Atrial fibrillation Right bundle branch block T wave abnormality, consider inferolateral ischemia Abnormal ECG When compared with ECG of 24-Feb-2025 20:07, Right bundle branch block is now Present Confirmed by DAVIDE MULLINS, PARAG ([id number]), news video editor ASHKAN SCHWAB ([id number]) on 05/12/2025 9:54:59 AM Referred By: Parag Stanton Confirmed By: PARAG STANTON MD
--- NOTE | 2025-05-11 12:09 | PCM.OP.PRO2 ---
Non-invasive Procedural Procedure Information Date of Procedure: 05/11/25 Pre-Procedure Diagnosis: Atrial fibrillation Post-Procedure Diagnosis: Same Procedure Performed:: DC cardioversion provider contracting consultant: No Procedure Time Out: 12:00 Procedure Start Time: 12:04 Procedure Stop Time: 12:07 Special Medications: Intravenous propofol 50 mg Description of procedure: Patient was brought to the cardiac catheterization lab in the postabsorptive nonsedated state. Informed consent was obtained. Anterior posterior pads were applied. The patient was seen by Dr. Harris of the critical care division. 50 mg of intravenous propofol was administered and 200 J of synchronized biphasic DC cardioversion energy were applied with prompt reversal to sinus rhythm. Patient tolerated the procedure well. Procedure findings: Successful DC cardioversion from atrial fibrillation to sinus rhythm. Follow-up as per office protocol.
--- NOTE | 2025-05-11 12:10 | EKG12_ITS ---
Test Reason : post cardioversion Blood Pressure : */* mmHG Vent. Rate : 70 BPM Atrial Rate : 70 BPM P-R Int : 224 ms QRS Dur : 130 ms QT Int : 460 ms P-R-T Axes : 51 21 -34 degrees QTcB Int : 496 ms Sinus rhythm with 1st degree A-V block Right bundle branch block T wave abnormality, consider inferior ischemia Abnormal ECG When compared with ECG of 11-May-2025 10:14, MANUAL COMPARISON REQUIRED DATA IS UNCONFIRMED Confirmed by DAVIDE MULLINS, PARAG ([id number]), book editor ASHKAN SCHWAB ([id number]) on 05/12/2025 9:55:06 AM Referred By: Parag Stanton Confirmed By: PARAG STANTON MD
--- NOTE | 2025-05-11 12:45 | PCM.OP.PRO2 ---
Procedures Pulmonary Pulmonary Procedures /Diagnostic Testin Con Sedation Non-invasive Procedural Procedure Information Date of Procedure: 05/11/25 Description of procedure: CONSCIOUS SEDATION REPORT DATE OF SERVICE: May 11, 2025 BRIEF HISTORY OF PRESENT ILLNESS: The patient is an 84-year-old male who presented to [facility] to undergo an elective outpatient cardioversion due to underlying atrial fibrillation. The patient did undergo a prior cardioversion in 2021, for which he received propofol for sedation. The patient denied any prior anesthetic complications. He denied a history of smoking or COPD. The patient is systemically anticoagulated on Eliquis. His last surface echocardiogram demonstrated an ejection fraction of 60%. PHYSICAL EXAMINATION: VITAL SIGNS: Reviewed and were acceptable. GENERAL: The patient is a male, in no apparent distress, speaking in full sentences. HEENT: Normocephalic, atraumatic. Mucous membranes are moist and pink. Good mouth opening noted. Trachea is midline. CHEST: S1, S2 irregularly irregular. No murmurs, rubs or gallops were noted. LUNGS: Clear to auscultation bilaterally without appreciable wheezes, rales or rhonchi. ABDOMEN: Soft, nontender, nondistended. Positive bowel sounds. EXTREMITIES: There is no clubbing, cyanosis or edema. ASA Class: II DESCRIPTION OF PROCEDURE: After confirmation of informed consent, the patient's anesthesia plan was reviewed in detail. Propofol was chosen. Risks and benefits were reviewed and the patient agreed to proceed. At 1202, the patient was given 50 mg of propofol. The patient achieved an appropriate level of sedation and was given a 200 joule synchronized cardioversion by Dr. Stanton at the bedside. This was successful in achieving normal sinus rhythm. The patient was monitored until 1218, at which time he reached his baseline mental status and function. The patient tolerated the procedure well. COMPLICATIONS: None ESTIMATED BLOOD LOSS: None RECOMMENDATIONS: Okay to recover in usual fashion.
== END 2025-05-11 13:15 | disposition home or self-care (01) ==
PROVIDERS: PCP Family Medicine; Referring Provider Internal Medicine Cardiovascular Disease; Visit Provider Internal Medicine Cardiovascular Disease
DX: I48.0 Paroxysmal atrial fibrillation (principal); I25.10 Atherosclerotic heart disease of native coronary artery without angina pectoris; I10 Essential (primary) hypertension; I25.2 Old myocardial infarction; E78.00 Pure hypercholesterolemia, unspecified; R06.02 Shortness of breath; Z95.5 Presence of coronary angioplasty implant and graft; Z79.01 Long term (current) use of anticoagulants; Z79.82 Long term (current) use of aspirin; Z79.899 Other long term (current) drug therapy
CPT/HCPCS: 92960; 93005

== ENCOUNTER → 2025-08-08 | Outpatient (CLI) | payer MEDICARE, SELFPAY ==
[2025-08-08 14:53] LABS: PSA,Total- Diagnostic 3.47 ng/mL (0.00-4.00)
[2025-08-08 15:11] LABS: AST(SGOT) 17 U/L (<=37); Alanine Aminotransfer ALT/SGPT 21 U/L (<=46); Albumin, Serum 4.1 g/dL (3.4-4.8); Alkaline Phosphatase 66 U/L (40-129); Bilirubin, Direct 0.17 mg/dL (0.00-0.30); Cholesterol 100 mg/dL (<=200); Globulin 3.0 g/dL (2.2-4.2); Low Density Lipoprotein Calc. 45 mg/dL; Triglycerides 97 mg/dL; Very Low Density Lipoprotein 19 mg/dL (5-40); cholesterol:hdl ratio screen 2.79
== END | disposition home or self-care (01) ==
LOC: LAB 13:20
PROVIDERS: Nurse Practitioner Family; PCP Family Medicine; Referring Provider Urology; Visit Provider Urology
DX: C61 Malignant neoplasm of prostate (principal); E78.00 Pure hypercholesterolemia, unspecified
CPT/HCPCS: 36415; 80061; 80076; 84153

== ENCOUNTER → 2025-08-29 | Outpatient (CLI) | payer MEDICARE, SELFPAY ==
[2025-08-29 14:10] LABS: Hematocrit 37.8 % (40-54); Hemoglobin 12.2 g/dL (13.0-16.5); Immature Granulocytes Count 0.020 X10^3/uL (0.0-0.0); Mean Corp Hgb Conc 32.3 g/dL (32-36); Mean Corpuscular Volume 93.8 fL (80-94); Mean Platelet Vol. 9.8 fl (6.2-12.0); NRBC Flagged by Analyzer 0 % (0-5); Platelet Count 180 K/mm3 (150-450); RBC Distribution Width CV 13.7 % (11.6-14.6); RBC Distribution Width SD 46.9 fl (35.1-43.9); Red Blood Count 4.03 M/mm3 (4.6-6.2); White Blood Count 7.0 K/mm3 (4.4-11.0)
[2025-08-29 15:18] LABS: Anion Gap 9 (5-15); BUN 20 mg/dL (4-19); BUN/Creat Ratio 21.0 RATIO (10-20); Calcium,Total 9.4 mg/dL (7.6-11.0); Carbon Dioxide 25.6 mmol/L (21.0-32.0); Chloride 105 mmol/L (98-108); Glucose 112 mg/dL (70-99); Potassium 4.6 mmol/L (3.3-5.1); Pro- Brain NATRIURETIC PEPTIDE 1039 pg/mL (<=1800)
== END | disposition home or self-care (01) ==
LOC: LAB 13:16
PROVIDERS: PCP Family Medicine; Referring Provider Nurse Practitioner Gerontology; Visit Provider Nurse Practitioner Gerontology
DX: R06.02 Shortness of breath (principal); I48.0 Paroxysmal atrial fibrillation; E78.00 Pure hypercholesterolemia, unspecified; I25.10 Atherosclerotic heart disease of native coronary artery without angina pectoris
CPT/HCPCS: 36415; 80048; 83880; 85025

== ENCOUNTER → 2025-10-18 | Outpatient (CLI) | payer MEDICARE, SELFPAY ==
[2025-10-18 14:22] LABS: Anion Gap 12 (5-15); BUN 24 mg/dL (4-19); BUN/Creat Ratio 20.8 RATIO (10-20); Calcium,Total 9.7 mg/dL (7.6-11.0); Carbon Dioxide 25.1 mmol/L (21.0-32.0); Chloride 100 mmol/L (98-108); Glucose 112 mg/dL (70-99); Potassium 4.1 mmol/L (3.3-5.1)
== END | disposition home or self-care (01) ==
LOC: LAB 13:21
PROVIDERS: PCP Family Medicine; Referring Provider Nurse Practitioner Gerontology; Visit Provider Nurse Practitioner Gerontology
DX: I10 Essential (primary) hypertension (principal)
CPT/HCPCS: 36415; 80048